=== PATIENT | female | born 1955 | race Caucasian/White ===

== ENCOUNTER → 2017-10-01 06:00 | Outpatient (REF) | payer MEDICAID, SELFPAY ==
[2017-10-01 08:49] LABS: Hemoglobin 11.9 g/dl (12.0-15.0); Mean Corp Hgb Conc 28.3 g/gl (32-36); Mean Corpuscular Hgb 28.3 pg (27.0-32.0); Mean Corpuscular Volume 99.8 fL (81-99); Mean Platelet Vol. 10.9 fl (6.2-12.0); Platelet Count 354 K/mm3 (150-450); RBC Distribution Width CV 14.3 % (11.6-14.6); RBC Distribution Width SD 51.9 fl (35.1-43.9); Red Blood Count 4.21 M/mm3 (4.2-5.4); Scan Indicated on CBC? Y/N NO; White Blood Count 8.4 K/mm3 (4.4-11.0)
[2017-10-01 08:54] LABS: Anion Gap 2 (5-15); BUN 26 mg/dL (7-18); BUN/Creat Ratio 56.6 RATIO (10-20); Calcium,Total 8.7 mg/dL (8.5-10.1); Chloride 99 mmol/L (98-107); Creatinine, Serum 0.46 mg/dL (0.55-1.02); EST Glomerular Filtration Rate 146 mL/min (>60); Est Glom Filt Rate - Afr Amer 176 mL/min (>60); Glucose 101 mg/dL (70-110); Potassium 4.9 mmol/L (3.5-5.1); Sodium Level 142 mmol/L (136-145)
== END ==
LOC: OLS.WCC 06:00
PROVIDERS: Visit Provider Family Medicine
DX: J44.9 Chronic obstructive pulmonary disease, unspecified (principal)
CPT/HCPCS: 36415; 80048; 85027

== ENCOUNTER → 2017-10-15 05:00 | Outpatient (REF) | payer MEDICAID, SELFPAY ==
[2017-10-15 09:06] LABS: Anion Gap 4 (5-15); BUN 20 mg/dL (7-18); BUN/Creat Ratio 53.6 RATIO (10-20); Calcium,Total 7.7 mg/dL (8.5-10.1); Chloride 101 mmol/L (98-107); Creatinine, Serum 0.37 mg/dL (0.55-1.02); EST Glomerular Filtration Rate 185 mL/min (>60); Est Glom Filt Rate - Afr Amer 224 mL/min (>60); Glucose 73 mg/dL (70-110); Potassium 3.3 mmol/L (3.5-5.1); Sodium Level 143 mmol/L (136-145)
[2017-10-15 09:15] LABS: Mean Corp Hgb Conc 30.3 g/gl (32-36); Mean Corpuscular Volume 95.7 fL (81-99); Mean Platelet Vol. 12.1 fl (6.2-12.0); Platelet Count 131 K/mm3 (150-450); RBC Distribution Width CV 14.2 % (11.6-14.6); RBC Distribution Width SD 47.1 fl (35.1-43.9); Red Blood Count 3.45 M/mm3 (4.2-5.4); White Blood Count 8.6 K/mm3 (4.4-11.0)
[2017-10-15 09:22] LABS: Scan Indicated on CBC? Y/N NO
== END ==
LOC: OLS.WCC 05:00
PROVIDERS: Visit Provider Family Medicine
DX: I10 Essential (primary) hypertension (principal); E43 Unspecified severe protein-calorie malnutrition
CPT/HCPCS: 36415; 80048; 85027

== ENCOUNTER → 2017-10-22 05:00 | Outpatient (REF) | payer MEDICAID, SELFPAY ==
[2017-10-22 08:11] LABS: Hematocrit 36.5 % (37-47); Hemoglobin 11.2 g/dl (12.0-15.0); Mean Corp Hgb Conc 30.7 g/gl (32-36); Mean Corpuscular Hgb 29.9 pg (27.0-32.0); Mean Corpuscular Volume 97.3 fL (81-99); Platelet Count 206 K/mm3 (150-450); RBC Distribution Width CV 16.1 % (11.6-14.6); RBC Distribution Width SD 54.8 fl (35.1-43.9); Red Blood Count 3.75 M/mm3 (4.2-5.4); Scan Indicated on CBC? Y/N NO; White Blood Count 9.8 K/mm3 (4.4-11.0)
[2017-10-22 08:37] LABS: Anion Gap 5 (5-15); BUN 18 mg/dL (7-18); BUN/Creat Ratio 49.3 RATIO (10-20); Calcium,Total 8.6 mg/dL (8.5-10.1); Chloride 99 mmol/L (98-107); Creatinine, Serum 0.36 mg/dL (0.55-1.02); EST Glomerular Filtration Rate 190 mL/min (>60); Est Glom Filt Rate - Afr Amer 230 mL/min (>60); Glucose 70 mg/dL (70-110); Potassium 4.5 mmol/L (3.5-5.1); Sodium Level 141 mmol/L (136-145)
== END ==
LOC: OLS.WCC 05:00
PROVIDERS: Visit Provider Family Medicine
DX: E43 Unspecified severe protein-calorie malnutrition (principal); I10 Essential (primary) hypertension
CPT/HCPCS: 36415; 80048; 85027

== ENCOUNTER → 2017-10-29 05:00 | Outpatient (REF) | payer MEDICAID, SELFPAY ==
[2017-10-29 08:32] LABS: Hematocrit 35.3 % (37-47); Hemoglobin 10.9 g/dl (12.0-15.0); Mean Corp Hgb Conc 30.9 g/gl (32-36); Mean Corpuscular Hgb 30.2 pg (27.0-32.0); Mean Corpuscular Volume 97.8 fL (81-99); Mean Platelet Vol. 11.5 fl (6.2-12.0); Platelet Count 171 K/mm3 (150-450); RBC Distribution Width CV 15.8 % (11.6-14.6); RBC Distribution Width SD 54.5 fl (35.1-43.9); Red Blood Count 3.61 M/mm3 (4.2-5.4); White Blood Count 7.2 K/mm3 (4.4-11.0)
[2017-10-29 08:36] LABS: Scan Indicated on CBC? Y/N NO
[2017-10-29 08:38] LABS: Anion Gap 6 (5-15); BUN 23 mg/dL (7-18); BUN/Creat Ratio 61.3 RATIO (10-20); Calcium,Total 8.3 mg/dL (8.5-10.1); Chloride 101 mmol/L (98-107); Creatinine, Serum 0.38 mg/dL (0.55-1.02); EST Glomerular Filtration Rate 184 mL/min (>60); Est Glom Filt Rate - Afr Amer 223 mL/min (>60); Glucose 63 mg/dL (70-110); Potassium 4.6 mmol/L (3.5-5.1); Sodium Level 140 mmol/L (136-145)
== END ==
LOC: OLS.WCC 05:00
PROVIDERS: Visit Provider Family Medicine
DX: I10 Essential (primary) hypertension (principal); E43 Unspecified severe protein-calorie malnutrition
CPT/HCPCS: 36415; 80048; 85027

== ENCOUNTER → 2017-11-05 07:07 | Outpatient (REF) | payer MEDICAID, SELFPAY ==
[2017-11-05 08:42] LABS: Anion Gap 4 (5-15); BUN 18 mg/dL (7-18); BUN/Creat Ratio 51.3 RATIO (10-20); Calcium,Total 8.2 mg/dL (8.5-10.1); Chloride 104 mmol/L (98-107); Creatinine, Serum 0.35 mg/dL (0.55-1.02); EST Glomerular Filtration Rate 199 mL/min (>60); Est Glom Filt Rate - Afr Amer 240 mL/min (>60); Glucose 85 mg/dL (70-110); Potassium 4.2 mmol/L (3.5-5.1); Sodium Level 142 mmol/L (136-145)
[2017-11-05 08:54] LABS: Hematocrit 35.9 % (37-47); Hemoglobin 11.2 g/dl (12.0-15.0); Mean Corp Hgb Conc 31.2 g/gl (32-36); Mean Corpuscular Hgb 30.1 pg (27.0-32.0); Mean Corpuscular Volume 96.5 fL (81-99); Mean Platelet Vol. 11.1 fl (6.2-12.0); Platelet Count 142 K/mm3 (150-450); RBC Distribution Width CV 15.2 % (11.6-14.6); RBC Distribution Width SD 51.7 fl (35.1-43.9); Red Blood Count 3.72 M/mm3 (4.2-5.4); White Blood Count 4.5 K/mm3 (4.4-11.0)
[2017-11-05 08:58] LABS: Scan Indicated on CBC? Y/N NO
== END ==
LOC: OLS.WCC 07:07
PROVIDERS: Visit Provider Family Medicine
DX: I10 Essential (primary) hypertension (principal); E43 Unspecified severe protein-calorie malnutrition
CPT/HCPCS: 36415; 80048; 85027

== ENCOUNTER → 2017-11-12 05:00 | Outpatient (REF) | payer MEDICAID, SELFPAY ==
[2017-11-12 09:32] LABS: Hematocrit 37.7 % (37-47); Hemoglobin 11.6 g/dl (12.0-15.0); Mean Corp Hgb Conc 30.8 g/gl (32-36); Mean Corpuscular Hgb 29.3 pg (27.0-32.0); Mean Corpuscular Volume 95.2 fL (81-99); Mean Platelet Vol. 11.6 fl (6.2-12.0); Platelet Count 200 K/mm3 (150-450); RBC Distribution Width CV 14.9 % (11.6-14.6); RBC Distribution Width SD 51.9 fl (35.1-43.9); Red Blood Count 3.96 M/mm3 (4.2-5.4); White Blood Count 5.4 K/mm3 (4.4-11.0)
[2017-11-12 09:33] LABS: Scan Indicated on CBC? Y/N NO
[2017-11-12 09:40] LABS: Anion Gap 5 (5-15); BUN 19 mg/dL (7-18); BUN/Creat Ratio 50.8 RATIO (10-20); Calcium,Total 8.8 mg/dL (8.5-10.1); Chloride 103 mmol/L (98-107); Creatinine, Serum 0.37 mg/dL (0.55-1.02); EST Glomerular Filtration Rate 185 mL/min (>60); Est Glom Filt Rate - Afr Amer 223 mL/min (>60); Glucose 82 mg/dL (70-110); Potassium 4.4 mmol/L (3.5-5.1); Sodium Level 140 mmol/L (136-145)
== END ==
LOC: OLS.WCC 05:00
PROVIDERS: Visit Provider Family Medicine
DX: I10 Essential (primary) hypertension (principal); E43 Unspecified severe protein-calorie malnutrition
CPT/HCPCS: 36415; 80048; 85027

== ENCOUNTER → 2017-11-19 05:00 | Outpatient (REF) | payer MEDICAID, SELFPAY ==
[2017-11-19 11:35] LABS: Hematocrit 38.4 % (37-47); Hemoglobin 12.3 g/dl (12.0-15.0); Mean Corpuscular Hgb 30.2 pg (27.0-32.0); Mean Corpuscular Volume 94.3 fL (81-99); Mean Platelet Vol. 11.5 fl (6.2-12.0); Platelet Count 230 K/mm3 (150-450); RBC Distribution Width CV 14.3 % (11.6-14.6); RBC Distribution Width SD 47.6 fl (35.1-43.9); Red Blood Count 4.07 M/mm3 (4.2-5.4); White Blood Count 6.7 K/mm3 (4.4-11.0)
[2017-11-19 11:41] LABS: Anion Gap 10 (5-15); BUN 18 mg/dL (7-18); BUN/Creat Ratio 35.4 RATIO (10-20); Calcium,Total 8.7 mg/dL (8.5-10.1); Chloride 102 mmol/L (98-107); Creatinine, Serum 0.51 mg/dL (0.55-1.02); EST Glomerular Filtration Rate 130 mL/min (>60); Est Glom Filt Rate - Afr Amer 157 mL/min (>60); Glucose 106 mg/dL (70-110); Potassium 4.1 mmol/L (3.5-5.1); Scan Indicated on CBC? Y/N NO; Sodium Level 142 mmol/L (136-145)
== END ==
LOC: OLS.WCC 05:00
PROVIDERS: Visit Provider Family Medicine
DX: I10 Essential (primary) hypertension (principal); E43 Unspecified severe protein-calorie malnutrition
CPT/HCPCS: 36415; 80048; 85027

== ENCOUNTER → 2017-11-26 05:00 | Outpatient (REF) | payer MEDICAID, SELFPAY ==
[2017-11-26 10:13] LABS: Hematocrit 38.1 % (37-47); Hemoglobin 12.3 g/dl (12.0-15.0); Mean Corp Hgb Conc 32.3 g/gl (32-36); Mean Corpuscular Hgb 30.4 pg (27.0-32.0); Mean Corpuscular Volume 94.3 fL (81-99); Mean Platelet Vol. 11.9 fl (6.2-12.0); Platelet Count 192 K/mm3 (150-450); RBC Distribution Width SD 46.2 fl (35.1-43.9); Red Blood Count 4.04 M/mm3 (4.2-5.4); White Blood Count 6.1 K/mm3 (4.4-11.0)
[2017-11-26 10:15] LABS: Scan Indicated on CBC? Y/N NO
[2017-11-26 10:24] LABS: Anion Gap 6 (5-15); BUN 19 mg/dL (7-18); BUN/Creat Ratio 52.3 RATIO (10-20); Calcium,Total 8.6 mg/dL (8.5-10.1); Chloride 104 mmol/L (98-107); Creatinine, Serum 0.36 mg/dL (0.55-1.02); EST Glomerular Filtration Rate 191 mL/min (>60); Est Glom Filt Rate - Afr Amer 231 mL/min (>60); Glucose 77 mg/dL (70-110); Potassium 4.5 mmol/L (3.5-5.1); Sodium Level 141 mmol/L (136-145)
== END ==
LOC: OLS.WCC 05:00
PROVIDERS: Visit Provider Family Medicine
DX: I10 Essential (primary) hypertension (principal); E43 Unspecified severe protein-calorie malnutrition
CPT/HCPCS: 36415; 80048; 85027

== ENCOUNTER → 2017-12-03 05:00 | Outpatient (REF) | payer MEDICAID, SELFPAY ==
[2017-12-03 09:00] LABS: Hematocrit 37.9 % (37-47); Hemoglobin 12.2 g/dl (12.0-15.0); Mean Corp Hgb Conc 32.2 g/gl (32-36); Mean Corpuscular Hgb 30.2 pg (27.0-32.0); Mean Corpuscular Volume 93.8 fL (81-99); Mean Platelet Vol. 11.5 fl (6.2-12.0); Platelet Count 158 K/mm3 (150-450); Red Blood Count 4.04 M/mm3 (4.2-5.4); White Blood Count 5.8 K/mm3 (4.4-11.0)
[2017-12-03 09:05] LABS: Scan Indicated on CBC? Y/N NO
[2017-12-03 09:11] LABS: Anion Gap 7 (5-15); BUN 18 mg/dL (7-18); BUN/Creat Ratio 40.5 RATIO (10-20); Calcium,Total 8.6 mg/dL (8.5-10.1); Chloride 104 mmol/L (98-107); Creatinine, Serum 0.44 mg/dL (0.55-1.02); EST Glomerular Filtration Rate 151 mL/min (>60); Est Glom Filt Rate - Afr Amer 183 mL/min (>60); Glucose 76 mg/dL (70-110); Potassium 4.3 mmol/L (3.5-5.1); Sodium Level 141 mmol/L (136-145)
== END ==
LOC: OLS.WCC 05:00
PROVIDERS: Visit Provider Family Medicine
DX: I10 Essential (primary) hypertension (principal); E43 Unspecified severe protein-calorie malnutrition
CPT/HCPCS: 36415; 80048; 85027

== ENCOUNTER → 2018-03-26 12:13 | Outpatient (CLI) | payer MEDICAID, SELFPAY ==
[2018-03-26 14:16] LABS: Absolute Lymphocyte Count 1.75 X10^3/ul (0.83-4.51); Basophil# 0.06 X10^3/uL; Basophil% 0.7 % (0-1); Eosinophil# 1.04 X10^3/uL; Hematocrit 42.5 % (37-47); Hemoglobin 14.1 g/dl (12.0-15.0); Lymphocyte # 1.75 X10^3/ul (4.0); Lymphocyte % 20.2 % (19-41); Mean Corp Hgb Conc 33.2 g/gl (32-36); Mean Corpuscular Hgb 29.3 pg (27.0-32.0); Mean Corpuscular Volume 88.2 fL (81-99); Mean Platelet Vol. 11.9 fl (6.2-12.0); Monocyte# 0.79 X10^3/uL; Monocyte% 9.1 % (0-10); Neutrophil # 5.02 X10^3/uL (2.7-7.7); Neutrophil % 57.8 % (47-70); Platelet Count 252 K/mm3 (150-450); RBC Distribution Width CV 13.3 % (11.6-14.6); RBC Distribution Width SD 42.7 fl (35.1-43.9); Red Blood Count 4.82 M/mm3 (4.2-5.4); White Blood Count 8.7 K/mm3 (4.4-11.0)
[2018-03-26 14:17] LABS: POSITIVE COUNT NO; POSITIVE DIFFERENTIAL NO; POSITIVE MORPHOLOGY NO
[2018-03-26 15:09] LABS: Vitamin B12 756 pg/mL (211-911); Vitamin D,25 Hydroxy 16.3 ng/mL (29.95-100.01)
[2018-03-26 15:37] LABS: ALB/GLOB Ratio 0.9 RATIO (0.9-2.4); AST(SGOT) 9 U/L (15-37); Alanine Aminotransfer ALT/SGPT 11 U/L (13-56); Albumin, Serum 3.7 g/dL (3.2-5.0); Alkaline Phosphatase 61 U/L (45-117); Anion Gap 7 (5-15); BUN 16 mg/dL (7-18); BUN/Creat Ratio 25.4 RATIO (10-20); Calcium,Total 9.3 mg/dL (8.5-10.1); Chloride 107 mmol/L (98-107); Creatinine, Serum 0.63 mg/dL (0.55-1.02); EST Glomerular Filtration Rate 101 mL/min (>60); Est Glom Filt Rate - Afr Amer 122 mL/min (>60); Globulin 4.1 g/dL (2.2-4.2); Glucose 92 mg/dL (74-106); Magnesium 2.2 mg/dL (1.6-2.6); Potassium 3.8 mmol/L (3.5-5.1); Prealbumin 18.8 mg/dL (20.0-40.0); Protein, Total 7.8 g/dL (6.4-8.2); Sodium Level 143 mmol/L (136-145); T4 Free Direct 1.32 ng/dL (0.76-1.46); Thyroid Stim Hormone (TSH) 1.31 uIU/mL (0.358-3.74)
[2018-03-30 09:53] LABS: Zinc, Plasma or Serum 92 ug/dL (56-134)
== END ==
PROVIDERS: Family Provider Family Medicine; PCP Family Medicine; Visit Provider Family Medicine
DX: J44.9 Chronic obstructive pulmonary disease, unspecified (principal); R63.6 Underweight
CPT/HCPCS: 36415; 80053; 82306; 82607; 82746; 83735; 84134; 84425; 84439; 84443; 84630; 85025

== ENCOUNTER → 2018-04-16 12:24 | Outpatient (CLI) | payer MEDICAID, SELFPAY ==
[2018-04-16 12:03] VITALS: PULSE 104; PULSE 85; PULSE 91; PULSE 92; PULSE 93; PULSE 94; PULSE 95; O2SAT 87; O2SAT 91; O2SAT 92; O2SAT 93; O2SAT 94; O2SAT 95
--- NOTE | 2018-04-16 12:24 | DT_ITS ---
This patient was seen during an EMR downtime April 14, 2018 - April 21, 2018. This patient may have a combination of paper and electronic documentation or all paper documentation. All documentation is viewable within the e-chart portion of [employer] for each patient visit.
--- NOTE | 2018-04-21 11:36 | PCM.PSN.6M ---
PSN 6 Minute Walk Test - Interpretation Interpretation: The patient ambulated 944 feet over the course of 6 minutes beginning on room air without assistive devices or breaks. Pretesting oxygen saturation was noted to be 92% on room air. With ambulation, the yojana oxygen saturation was 87%. 2 L/min of supplemental oxygen was applied, and the patient was able to complete the remainder of the test while maintaining oxygen saturations at or above 88%. This testing did indicate the presence of significant exertional oxygen desaturation. - Recommendations Recommendations: 2 L/min of supplemental oxygen should be utilized with exertion.
--- NOTE | 2018-04-21 12:05 | CPS ---
Testing done by Lisa Nam. Patient wears 2 lpm at home.
== END ==
PROVIDERS: Family Provider Family Medicine; PCP Family Medicine; Visit Provider Internal Medicine Critical Care Medicine
DX: R06.02 Shortness of breath (principal); B44.9 Aspergillosis, unspecified
CPT/HCPCS: 94618

== ENCOUNTER 2018-04-21 14:44 | Outpatient (RCR) | payer MEDICAID, SELFPAY ==
--- NOTE | 2018-04-21 14:44 | DT_ITS ---
This patient was seen during an EMR downtime April 14, 2018 - April 21, 2018. This patient may have a combination of paper and electronic documentation or all paper documentation. All documentation is viewable within the e-chart portion of [employer] for each patient visit.
== END 2018-05-10 23:59 ==
LOC: NS 14:44
PROVIDERS: Family Provider Family Medicine; PCP Family Medicine; Visit Provider Family Medicine
DX: E46 Unspecified protein-calorie malnutrition (principal); Z71.3 Dietary counseling and surveillance
CPT/HCPCS: 97802

== ENCOUNTER → 2018-04-28 12:48 | Outpatient (CLI) | payer MEDICAID, SELFPAY ==
--- NOTE | 2018-04-28 12:48 | CT_ITS ---
STUDY: CT CHEST WITH CONTRAST REASON FOR EXAM: Female, 62 years old. Wheezing. History of aspergillosis. RADIATION DOSAGE (If Supplied By Facility): CTDIvol = ( 8.66 ) mGy, DLP = ( 151.65 ) mGycm TECHNIQUE: Transaxial imaging was performed following intravenous administration of 80ML ml of Isovue 300 contrast material. Individualized dose optimization techniques were used for this CT. COMPARISON: CT chest October 08, 2017. Chest x-ray October 08, 2017. FINDINGS: Lungs are hyperinflated. No focal infiltrates or effusions. Focal bronchiectasis involving the lingular segment which has progressed since the prior exam axial image 70 series 4 and coronal image 120. Biapical pleural thickening. Normal heart and pericardium. Normal mediastinum. Normal hilar regions. Normal enhanced pulmonary arteries. There is mild atherosclerotic calcification of the thoracic aorta. Normal osseous structures. There is no demonstrated abnormality of the visualized upper abdomen. CT/Chest WITH Contrast IMPRESSION: No acute findings in the chest. No pulmonary embolus or thoracic aortic dissection. Lingular segment bronchiectasis worse since the prior study. COPD. Electronically Signed: Florencio Fu MD at 7:30 EDT , Service support ,
== END ==
PROVIDERS: Family Provider Family Medicine; PCP Family Medicine; Visit Provider Internal Medicine Critical Care Medicine
DX: E43 Unspecified severe protein-calorie malnutrition (principal); B44.9 Aspergillosis, unspecified
CPT/HCPCS: 71260; Q9967

== ENCOUNTER → 2018-04-30 13:01 | Outpatient (CLI) | payer MEDICAID, SELFPAY ==
--- NOTE | 2018-05-01 08:28 | PFT ---
INTRODUCTION: The patient is a 62-year-old female currently under the care of Dr. Del Castillo that presents for pulmonary function testing secondary to a diagnosis of shortness of breath. Respiratory therapy reports fair patient effort. Bronchodilators were used during testing. INTERPRETATION: Forced expiration spirometry demonstrates no evidence of a large airways obstructive ventilatory defect. There was no significant response to aerosolized bronchodilators. Spirograms are of poor quality and do not meet exhalation criteria, likely underestimating FVC. Body plethysmography revealed an elevated RV to 183% of predicted. Diffusing capacity by single breath CO is reduced at 44% of predicted. IMPRESSION: Although the patient is not technically obstructed based upon ATS and GOLD criteria, I suspect that inadequate patient effort has led to an underestimation of her FVC and subsequent preservation of the FEV1/FVC ratio. The elevated RV would be indicative of air trapping in the setting of obstruction. There was also evidence of a severe reduction in diffusing capacity. Clinical correlation is recommended.
== END ==
PROVIDERS: Family Provider Family Medicine; PCP Family Medicine; Visit Provider Internal Medicine Critical Care Medicine
DX: R06.02 Shortness of breath (principal); B44.9 Aspergillosis, unspecified
CPT/HCPCS: 94060; 94726; 94729

== ENCOUNTER 2018-06-02 14:00 | Outpatient (RCR) | payer MEDICAID, SELFPAY | END 2018-06-10 23:59 | LOC: NS 14:00 | PROVIDERS: Family Provider Family Medicine; PCP Family Medicine; Visit Provider Family Medicine | DX: E46 Unspecified protein-calorie malnutrition (principal); Z71.3 Dietary counseling and surveillance | CPT/HCPCS: 97803 ==

== ENCOUNTER 2018-06-24 08:23 | Outpatient (RCR) | payer MEDICAID, SELFPAY | END 2018-07-11 23:59 | LOC: NS 08:23 | PROVIDERS: Family Provider Family Medicine; PCP Family Medicine; Visit Provider Family Medicine | DX: E46 Unspecified protein-calorie malnutrition (principal); Z71.3 Dietary counseling and surveillance ==

== ENCOUNTER 2018-08-01 11:00 | Outpatient (RCR) | payer MEDICAID, SELFPAY | END 2018-08-10 23:59 | LOC: NS 11:00 | PROVIDERS: Family Provider Family Medicine; PCP Family Medicine; Visit Provider Family Medicine | DX: E46 Unspecified protein-calorie malnutrition (principal); Z71.3 Dietary counseling and surveillance | CPT/HCPCS: 97803 ==

== ENCOUNTER → 2018-08-29 14:10 | Outpatient (CLI) | payer MEDICARE, MEDICAID, SELFPAY ==
--- NOTE | 2018-08-29 14:13 | CT_ITS ---
STUDY: CT ABDOMEN AND PELVIS WITH CONTRAST REASON FOR EXAM: Female, 62 years old. Weight loss RADIATION DOSAGE (If Supplied By Facility): CTDIvol = ( 10.68 ) mGy, DLP = ( 222.58 ) mGycm TECHNIQUE: Transaxial images were obtained from the dome of the diaphragm to the symphysis pubis without oral contrast. 75 ml of Isovue 300 contrast was administered. Sagittal and coronal images were reconstructed. # of Images: 315 Individualized dose optimization techniques were used for this CT. COMPARISON: None. FINDINGS: The visualized lung bases are unremarkable. The visualized portions of the heart are within normal limits. Normal liver. Normal gallbladder and extrahepatic biliary system. Normal spleen. Normal pancreas. Normal bilateral adrenal glands. There is scarring in the right kidney most likely due to old pyelonephritis. Normal left kidney. Normal visualized stomach. Normal small intestine. Normal colon. There is non-visualization of the appendix. Normal abdominal aorta. Normal inferior vena cava. Normal retroperitoneum. Normal urinary bladder. There is right ovarian cyst measures 3.1 cm in diameter. The uterus is atrophic. Left ovary is not visualized. Normal abdominal wall. Normal osseous structures. CT/Abdomen/Pelvis WITH Contrast IMPRESSION: There is scarring in the right kidney most likely due to old pyelonephritis. There is right ovarian cyst measures 3.1 cm in diameter. Electronically Signed: Gareth Krishna MD at 7:43 EDT Tel , Service support ,
[2018-08-29 14:36] LABS: CREATININE FINGERSTICK < 0.6 mg/dL (0.55-1.02); EGFR FINGERSTICK > 60.0000 mL/min (>60)
== END ==
PROVIDERS: Family Provider Family Medicine; PCP Family Medicine; Referring Provider Family Medicine; Visit Provider Family Medicine
DX: R64 Cachexia (principal)
CPT/HCPCS: 74177; Q9967

== ENCOUNTER 2018-09-09 10:00 | Outpatient (RCR) | payer MEDICARE, MEDICAID, SELFPAY | END 2018-09-10 23:59 | LOC: NS 10:00 | PROVIDERS: Family Provider Family Medicine; PCP Family Medicine; Visit Provider Family Medicine | DX: E46 Unspecified protein-calorie malnutrition (principal); Z71.3 Dietary counseling and surveillance | CPT/HCPCS: 97803 ==

== ENCOUNTER 2018-11-20 13:49 | Outpatient (RCR) | payer MEDICARE, MEDICAID, SELFPAY | END 2018-12-11 23:59 | LOC: NS 13:49 | PROVIDERS: Family Provider Family Medicine; PCP Family Medicine; Visit Provider Family Medicine | DX: E46 Unspecified protein-calorie malnutrition (principal); Z71.3 Dietary counseling and surveillance | CPT/HCPCS: 97803 ==

== ENCOUNTER → 2018-11-25 10:46 | Outpatient (CLI) | payer MEDICARE, MEDICAID, SELFPAY ==
[2018-11-25 12:55] LABS: Magnesium 2.3 mg/dL (1.6-2.6); Phosphorus 4.6 mg/dL (2.5-4.9)
[2018-11-27 09:41] LABS: Zinc, Plasma or Serum 79 ug/dL (56-134)
== END ==
PROVIDERS: Family Provider Family Medicine; PCP Family Medicine; Visit Provider Family Medicine
DX: E43 Unspecified severe protein-calorie malnutrition (principal)
CPT/HCPCS: 36415; 83735; 84100; 84630

== ENCOUNTER → 2018-11-27 11:27 | Outpatient (CLI) | payer MEDICARE, MEDICAID, SELFPAY ==
[2018-11-27 10:48] VITALS: BMI 11.2
--- NOTE | 2018-11-27 11:33 | CPS ---
Dispensed PEP device to patient's sister. Instructed sister on use and cleaning of device.
== END ==
PROVIDERS: Family Provider Family Medicine; PCP Family Medicine; Referring Provider Nurse Practitioner Acute Care; Visit Provider Nurse Practitioner Acute Care
DX: J47.9 Bronchiectasis, uncomplicated (principal)
CPT/HCPCS: 94667

== ENCOUNTER 2018-12-26 10:55 | Outpatient (RCR) | payer MEDICARE, SELFPAY ==
[2018-11-27 10:48] VITALS: BMI 11.2
[2018-12-23 11:48] VITALS: BMI 11.2
== END 2019-01-08 23:59 ==
LOC: NS 10:55
PROVIDERS: Family Provider Family Medicine; PCP Internal Medicine; Visit Provider Family Medicine
DX: E46 Unspecified protein-calorie malnutrition (principal); Z71.3 Dietary counseling and surveillance
CPT/HCPCS: 97803

== ENCOUNTER 2019-01-16 11:00 | Outpatient (RCR) | payer MEDICARE, SELFPAY ==
[2018-12-23 11:48] VITALS: BMI 11.2
[2019-01-12 10:52] VITALS: BMI 11.2
== END 2019-02-08 23:59 ==
LOC: NS 11:00
PROVIDERS: Family Provider Family Medicine; PCP Internal Medicine; Visit Provider Family Medicine
DX: E46 Unspecified protein-calorie malnutrition (principal); Z71.3 Dietary counseling and surveillance
CPT/HCPCS: 97803

== ENCOUNTER → 2019-02-09 11:55 | Outpatient (CLI) | payer MEDICARE, SELFPAY ==
[2019-02-09 11:19] VITALS: BMI 11.2
[2019-02-09 12:40] LABS: Absolute Lymphocyte Count 1.75 X10^3/ul (0.83-4.51); Absolute Neutrophil Count 4.7 X10^3/uL (2.0-7.7); Basophil# 0.05 X10^3/uL; Basophil% 0.7 % (0-1); Eosinophils% 6.7 % (0-5); Hemoglobin 14.5 g/dl (12.0-15.0); Lymphocyte # 1.75 X10^3/ul (4.0); Lymphocyte % 23.6 % (19-41); Mean Corp Hgb Conc 32.2 g/gl (32-36); Mean Corpuscular Volume 93.2 fL (81-99); Mean Platelet Vol. 11.1 fl (6.2-12.0); Monocyte# 0.42 X10^3/uL; Monocyte% 5.7 % (0-10); Neutrophil % 63.2 % (47-70); Platelet Count 224 K/mm3 (150-450); RBC Distribution Width CV 13.1 % (11.6-14.6); RBC Distribution Width SD 44.7 fl (35.1-43.9); Red Blood Count 4.83 M/mm3 (4.2-5.4); White Blood Count 7.4 K/mm3 (4.4-11.0)
[2019-02-09 12:42] LABS: POSITIVE COUNT NO; POSITIVE DIFFERENTIAL NO; POSITIVE MORPHOLOGY NO
[2019-02-09 13:09] LABS: ALB/GLOB Ratio 0.9 RATIO (0.9-2.4); AST(SGOT) 26 U/L (15-37); Alanine Aminotransfer ALT/SGPT 36 U/L (13-56); Albumin, Serum 3.8 g/dL (3.2-5.0); Alkaline Phosphatase 72 U/L (45-117); Anion Gap 5 (5-15); BUN 22 mg/dL (7-18); BUN/Creat Ratio 33.2 RATIO (10-20); Calcium,Total 9.3 mg/dL (8.5-10.1); Chloride 105 mmol/L (98-107); Creatinine, Serum 0.66 mg/dL (0.55-1.02); EST Glomerular Filtration Rate 95 mL/min (>60); Est Glom Filt Rate - Afr Amer 115 mL/min (>60); Globulin 4.3 g/dL (2.2-4.2); Glucose 115 mg/dL (74-106); Magnesium 2.5 mg/dL (1.6-2.6); Phosphorus 3.8 mg/dL (2.5-4.9); Potassium 4.8 mmol/L (3.5-5.1); Protein, Total 8.1 g/dL (6.4-8.2); Sodium Level 142 mmol/L (136-145)
[2019-02-09 13:17] LABS: Vitamin D,25 Hydroxy 28.9 ng/mL (29.95-100.01)
== END ==
PROVIDERS: Family Provider Family Medicine; PCP Internal Medicine; Visit Provider Internal Medicine
DX: E46 Unspecified protein-calorie malnutrition (principal); E55.9 Vitamin D deficiency, unspecified
CPT/HCPCS: 80053; 82306; 83735; 84100; 84630; 85025

== ENCOUNTER 2019-02-16 13:10 | Outpatient (RCR) | payer MEDICARE, SELFPAY ==
[2019-01-12 10:52] VITALS: BMI 11.2
[2019-02-09 11:19] VITALS: BMI 11.2
== END 2019-03-10 23:59 ==
LOC: NS 13:10
PROVIDERS: Family Provider Family Medicine; PCP Internal Medicine; Visit Provider Family Medicine
DX: E46 Unspecified protein-calorie malnutrition (principal); Z71.3 Dietary counseling and surveillance
CPT/HCPCS: 97803

== ENCOUNTER 2019-03-17 12:03 | Outpatient (RCR) | payer MEDICARE, SELFPAY ==
[2019-03-10 10:50] VITALS: BMI 11.2
== END 2019-04-10 23:59 ==
LOC: NS 12:03
PROVIDERS: Family Provider Family Medicine; PCP Internal Medicine; Visit Provider Family Medicine
DX: E46 Unspecified protein-calorie malnutrition (principal); Z71.3 Dietary counseling and surveillance
CPT/HCPCS: 97803

== ENCOUNTER → 2019-03-25 10:14 | Outpatient (CLI) | payer MEDICARE, SELFPAY ==
[2019-02-09 11:19] VITALS: BMI 11.2
[2019-03-10 10:50] VITALS: BMI 11.2
--- NOTE | 2019-03-25 10:31 | BI_ITS ---
MAMMOGRAPHY - BILATERAL SCREENING REASON FOR EXAM: Female, 63 years old. Routine annual screening examination. PERTINENT HISTORY: Non-contributory. TECHNIQUE: Digital bilateral breast go (3D mammographic acquisition) in the CC and MLO projections. 2-D mediolateral oblique (MLO) and craniocaudad (CC) views of both breasts were obtained. CAD: Full Field Digital Mammography with Computer Added Detection was performed. COMPARISON: None. Baseline examination. FINDINGS: Breast Composition: The breasts are extremely dense, which lowers the sensitivity of mammography. There are no dominant masses or suspicious calcifications. No other significant abnormalities are identified. BI/SCREEN MAMM (CAD) W/GO BILAT IMPRESSION: Negative screening mammogram. Yearly followup mammogram recommended. (A) ASSESSMENT CATEGORY: BIRADS Category 1: Negative. A letter regarding these results will be sent to the patient by the facility within 30 days. Approximately 10% of breast cancers are not detected by mammography. A normal mammogram should not delay biopsy of a clinically suspicious abnormality. [id number] Electronically Signed: Isaac Stuart, at 13:31 EDT , Service support ,
== END ==
PROVIDERS: Family Provider Internal Medicine; PCP Internal Medicine; Referring Provider Internal Medicine; Visit Provider Internal Medicine
DX: Z12.31 Encounter for screening mammogram for malignant neoplasm of breast (principal)
CPT/HCPCS: 77063; 77067

== ENCOUNTER → 2019-04-02 10:40 | Outpatient (CLI) | payer MEDICARE, SELFPAY ==
[2019-03-10 10:50] VITALS: BMI 11.2
--- NOTE | 2019-04-02 10:50 | BD_ITS ---
STUDY: DUAL ENERGY X-RAY ABSORPTIOMETRY / DXA REASON FOR EXAM: Female, 63 years old. The patient is postmenopausal. Loss of height. TECHNIQUE: Bone Mineral Density (BMD) measurements of lumbar spine and bilateral hips were obtained. COMPARISON: None. FINDINGS: Lumbar Spine (L1-L4): g/cm2 (0.808) / T-score (-3.1) / Z-score (-1.5) Findings are suggestive of osteoporosis with a high fracture risk. Left Femur Total: g/cm2 (0.426) / T-score (-4.6) / Z-score (-3.4) Left Femoral Neck: g/cm2 (0.478) / T-score (-4.0) / Z-score (-2.5) Right Femur Total: g/cm2 (0.394) / T-score (-4.9) / Z-score (-3.7) Right Femoral Neck: g/cm2 (0.48 to) / T-score (-4.0) / Z-score (-2.5) BD/Dexa Bone Density Study IMPRESSION: The patient is considered osteoporotic as outlined below according to World Geo Organization (WHO) criteria with a high fracture risk. Reference Information: The T-score is the number of standard deviations above or below the standard which is normal for young adults at their peak bone mineral density. The World Health Organization (WHO) interprets the T-scores as follows: Above -1 Normal bone density Between -1 and -2.5 Osteopenia Equal to / or below -2.5 Osteoporosis As a practical clinical guideline, osteopenia may be graded as follows: Mild -1 through -1.5 Moderate -1.6 through -2.0 Severe -2.1 through -2.4 The Z-score is the number of standard deviations above or below age-matched controls. A Z-score of less than -1.5 would be considered abnormal. References: 1. NIH Osteoporosis and Related Bone Diseases http://www.osteo.org 2. International Society for Clinical Densitometry http://www.iscd.org 3. National Osteoporosis Foundation http://www.nof.org Electronically Signed: Isaac Stuart, at 12:44 EDT , Service support ,
== END ==
PROVIDERS: Family Provider Internal Medicine; PCP Internal Medicine; Visit Provider Internal Medicine
DX: Z78.0 Asymptomatic menopausal state (principal); M81.0 Age-related osteoporosis without current pathological fracture
CPT/HCPCS: 77080

== ENCOUNTER → 2019-04-30 09:55 | Outpatient (CLI) | payer MEDICARE, SELFPAY ==
[2018-11-27 10:48] VITALS: BMI 11.2
[2019-04-09 10:00] VITALS: BMI 11.2
--- NOTE | 2019-05-01 10:49 | PFT ---
INTRODUCTION: The patient is a 63-year-old female that presents for pulmonary function studies secondary to a diagnosis of shortness of breath. Respiratory therapy reports that the patient was unable to exhale for the full 6 seconds during pre-spirometry testing. Bronchodilators were used during testing. INTERPRETATION: Forced expiration spirometry demonstrates the presence of a very severe large airways obstructive ventilatory defect. There was no significant response to aerosolized bronchodilators. Spirograms are of poor quality and do not plateau. Body plethysmography was performed and reveals an elevated RV to 174% of predicted, indicative of underlying air trapping. Diffusing capacity by single breath CO is preserved at 71% of predicted. IMPRESSION: Irreversible very severe large airways obstructive ventilatory defect with associated air trapping and relatively preserved diffusing capacity.
== END ==
PROVIDERS: Family Provider Internal Medicine; PCP Internal Medicine; Referring Provider Nurse Practitioner Acute Care; Visit Provider Nurse Practitioner Acute Care
DX: R06.02 Shortness of breath (principal)
CPT/HCPCS: 94060; 94726; 94729

== ENCOUNTER → 2020-04-27 14:39 | Outpatient (CLI) | payer MEDICARE, MEDICAID, SELFPAY ==
[2020-04-27 13:58] VITALS: BMI 11.9
[2020-04-27 15:49] LABS: Absolute Lymphocyte Count 1.72 X10^3/uL (0.83-4.51); Absolute Neutrophil Count 6.7 X10^3/uL (2.0-7.7); Basophil# 0.08 X10^3/uL; Basophil% 0.8 % (0-1); Eosinophil# 0.37 X10^3/uL; Eosinophils% 3.9 % (0-5); Hematocrit 43.6 % (37-47); Hemoglobin 13.9 g/dL (12.0-15.0); Lymphocyte # 1.72 X10^3/ul (4.0); Lymphocyte % 18.1 % (19-41); Mean Corp Hgb Conc 31.9 g/dL (32-36); Mean Platelet Vol. 10.9 fl (6.2-12.0); Monocyte# 0.62 X10^3/uL; Monocyte% 6.5 % (0-10); NRBC Flagged by Analyzer 0 % (0-5); Neutrophil # 6.66 X10^3/uL (2.7-7.7); Neutrophil % 70.2 % (47-70); Platelet Count 266 K/mm3 (150-450); RBC Distribution Width CV 12.6 % (11.6-14.6); RBC Distribution Width SD 43.5 fl (35.1-43.9); Red Blood Count 4.64 M/mm3 (4.2-5.4); White Blood Count 9.5 K/mm3 (4.4-11.0)
[2020-04-27 16:24] LABS: ALB/GLOB Ratio 0.9 RATIO (0.9-2.4); AST(SGOT) 16 U/L (15-37); Alanine Aminotransfer ALT/SGPT 25 U/L (13-56); Albumin, Serum 3.7 g/dL (3.2-5.0); Alkaline Phosphatase 67 U/L (45-117); Anion Gap 5 (5-15); BUN 25 mg/dL (7-18); BUN/Creat Ratio 32.5 RATIO (10-20); Chloride 106 mmol/L (98-107); Creatinine, Serum 0.77 mg/dL (0.55-1.02); EST Glomerular Filtration Rate 80 mL/min (>60); Est Glom Filt Rate - Afr Amer 96 mL/min (>60); Globulin 4.3 g/dL (2.2-4.2); Glucose 108 mg/dL (74-106); Magnesium 2.4 mg/dL (1.6-2.6); Phosphorus 4.1 mg/dL (2.5-4.9); Potassium 4.4 mmol/L (3.5-5.1); Sodium Level 142 mmol/L (136-145)
[2020-04-27 16:59] LABS: Vitamin D,25 Hydroxy 20.8 ng/mL
[2020-05-02 05:35] LABS: Zinc, Plasma or Serum 392 ug/dL (56-134)
== END ==
PROVIDERS: PCP Internal Medicine; Referring Provider Internal Medicine; Visit Provider Internal Medicine
DX: E46 Unspecified protein-calorie malnutrition (principal); E55.9 Vitamin D deficiency, unspecified
CPT/HCPCS: 36415; 80053; 82306; 83735; 84100; 84630; 85025

== ENCOUNTER 2021-01-16 15:06 | Inpatient (IN) | payer MEDICARE, MEDICAID, SELFPAY ==
[2020-12-09 13:59] VITALS: BMI 11.7
[2021-01-16] VITALS (10 sets, daily range): BP systolic 129–197; BP diastolic 50–116; PULSE 85–100; RESP 16–22; TEMP 35.8–37.4; O2SAT 88–98; BMI 12.7; BMI 11.0
--- NOTE | 2021-01-16 15:11 | ED.DCSUM_ITS ---
History of Present Illness Chief Complaint: Abd Pain Informant: Patient, Sales Representative [employer] Narrative: 65-year-old female presents via ambulance with a complaint of right lower quadrant abdominal pain dysuria and urinary frequency. Patient states about a week ago she was seen in urgent care and was prescribed Macrobid. She states that this is not agreeing with her stomach and she felt okay yesterday but today developed this pain in the right lower quadrant. She describes it as a constant dull ache. She notes continued dysuria and frequency. She denies any fevers. She notes that she had some dry heaves prior to EMSs arrival. No hematuria. She denies any prior abdominal surgeries. She has been able to eat some oatmeal today. Normal bowel movements. - Past Medical History (1) Asthma Status: Chronic (2) Bronchiectasis Status: Chronic (3) COPD (chronic obstructive pulmonary disease) Status: Chronic (4) Hypertension Status: Chronic (5) Malnutrition Status: Chronic Comment: unintended weight loss of about 35 lbs (6) Aspergillosis Status: Resolved Comment: History of Left aspergilloma Past Medical History - Allergies and Home Meds Allergies/Adverse Reactions: Allergies codeine Allergy (Verified 01/16/21 18:11) Made me pass out Penicillins [PCN] Allergy (Verified 01/16/21 15:07) Rash rash to legs Primary Care Physician: Yaya Sanders MD [Primary Care Provider] - Surgical History: no surgical history Smoking Status: Former smoker Alcohol: None Drugs: None - Family History Maternal Family History: Family History (Last Reviewed 12/09/20 @ 14:18 by Jessica Fatima NP, [employer] MACHINE OPERATOR-C) Mother Anemia Hypertension High cholesterol Osteoporosis CVA (cerebral vascular accident) Angina pectoris Asthma Anxiety Arthritis Scleroderma Depression Myocardial infarction Heart disease Family History: Reports: Asthma, Cancer, COPD, Heart Disease - had bypass surgery Paternal Family History: Family History (Last Reviewed 12/09/20 @ 14:18 by Jessica Fatima NP, [employer] P[employer] MACHINE OPERATOR-C) Mother Anemia Hypertension High cholesterol Osteoporosis CVA (cerebral vascular accident) Angina pectoris Asthma Anxiety Arthritis Scleroderma Depression Myocardial infarction Heart disease Family History: Reports: Pulmonary Disease Review of Systems General: Reports: Malaise. Denies: Chills, Fever, Sweats Eyes: Denies: Visual changes - bilaterally, Diplopia ENT: Denies: Rhinorrhea, Sore throat Cardiovascular: Denies: Chest pain, Palpitations Respiratory: Denies: Dyspnea, Cough, Dyspnea on exertion Gastrointestinal: Reports: Abdominal pain, Nausea. Denies: Vomiting, Diarrhea, Melena, Hematochezia Genitourinary: Reports: Dysuria, Frequency. Denies: Hematuria Musculoskeletal: Denies: Back pain, Extremity Pain Skin: Denies: Rash, Wounds Neurological: Denies: Headache, Weakness, Numbness Physical Exam Vital Signs/Narrative: Vital Signs Temp Pulse Resp BP Pulse Ox 01/16/21 15:08 96.4 F L 95 16 197/116 H 98 Inital Vital Signs reviewed: Yes General: Well nourished, Well developed, No Acute Distress Head: Normocephalic, Atraumatic Eyes: Perrl, EOMI ENT: Moist mucous membranes, No rhinorrhea Neck: Supple, Nontender Cardiovascular: Regular rate, Regular rhythm, No murmurs Respiratory: No distress, CTA bilaterally, Chest nontender Abdomen: Soft, Nontender, Nondistended, Normal bowel sounds Back: Nontender, Normal Inspection Extremities: Nontender, No edema Skin: Normal color, No rash Neurological: Alert, Oriented x3, Cranial nerves II-XII grossly intact, Normal Strength, Normal Sensation Psychological: Normal affect, Normal Mood Diagnostic/Tx/Re-eval Clinical Impression(s) from Imaging Studies Abdomen/Pelvis CT 01/16/21 16:01 IMPRESSION: 1. Right UVJ calculus with marked obstructive uropathy. 2. Right upper pole renal cysts. 3. Large right adnexal cyst. 4. Findings consistent with pelvic congestion. 5. Calcified uterine fibroid. 6. Atherosclerotic changes of the abdominal aorta. Electronically Signed: Gumaro Bills DO at 18:26 EST Tel [phone], Service support , Transvaginal US 01/16/21 18:51 IMPRESSION: 1. Multiple uterine fibroids. Uterus is otherwise unremarkable. 2. Large simple cyst in the right ovary which correlates with the ultrasound finding. 3. Increased venous structures within the broad ligament and adnexa consistent with pelvic congestion. 4. Nonvisualization left ovary. Electronically Signed: Gumaro Bills DO at 20:42 EST Tel [phone], Service support , Laboratory Last Values WBC 18.4 K/mm3 (4.4-11.0) H 01/16/21 15:18 RBC 4.83 M/mm3 (4.2-5.4) 01/16/21 15:18 Hgb 13.7 g/dL (12.0-15.0) 01/16/21 15:18 Hct 43.7 % (37-47) 01/16/21 15:18 MCV 90.5 fL (81-99) 01/16/21 15:18 MCH 28.4 pg (27.0-32.0) 01/16/21 15:18 MCHC 31.4 g/dL (32-36) L 01/16/21 15:18 RDW Std Deviation 41.4 fl (35.1-43.9) 01/16/21 15:18 RDW Coeff of Marie 12.4 % (11.6-14.6) 01/16/21 15:18 Plt Count 327 K/mm3 (150-450) 01/16/21 15:18 MPV 10.1 fl (6.2-12.0) 01/16/21 15:18 Immature Gran % (Auto) 0.600 % (0.0-0.9) 01/16/21 15:18 Neut % (Auto) 90.9 % (47-70) H 01/16/21 15:18 Lymph % (Auto) 4.3 % (19-41) L 01/16/21 15:18 Mellette % (Auto) 3.7 % (0-10) 01/16/21 15:18 Eos % (Auto) 0.1 % (0-5) 01/16/21 15:18 Baso % (Auto) 0.4 % (0-1) 01/16/21 15:18 Absolute Neuts (auto) 16.7 X10^3/uL (2.0-7.7) H 01/16/21 15:18 Absolute Lymphs (auto) 0.79 X10^3/uL (0.83-4.51) L 01/16/21 15:18 Nucleated RBC % 0 % (0-5) 01/16/21 15:18 Sodium 137 mmol/L (136-145) 01/16/21 15:18 Potassium 3.5 mmol/L (3.5-5.1) 01/16/21 15:18 Chloride 100 mmol/L (98-107) 01/16/21 15:18 Carbon Dioxide 29.0 mmol/L (21.0-32.0) 01/16/21 15:18 Anion Gap 8 (5-15) 01/16/21 15:18 BUN 14 mg/dL (7-18) 01/16/21 15:18 Creatinine 0.91 mg/dL (0.55-1.02) 01/16/21 15:18 Estim Creat Clear Calc 33.90 ml/min 01/16/21 15:18 Est GFR (MDRD) Af Amer 80 mL/min (>60) 01/16/21 15:18 Est GFR (MDRD) Non-Af 66 mL/min (>60) 01/16/21 15:18 BUN/Creatinine Ratio 15.4 RATIO (10-20) 01/16/21 15:18 Glucose 158 mg/dL (74-106) H 01/16/21 15:18 Calcium 8.8 mg/dL (8.5-10.1) 01/16/21 15:18 Total Bilirubin 0.70 mg/dL (0.20-1.00) 01/16/21 15:18 AST 16 U/L (15-37) 01/16/21 15:18 ALT 13 U/L (13-56) 01/16/21 15:18 Alkaline Phosphatase 68 U/L (45-117) 01/16/21 15:18 Total Protein 7.8 g/dL (6.4-8.2) 01/16/21 15:18 Albumin 3.7 g/dL (3.2-5.0) 01/16/21 15:18 Globulin 4.1 g/dL (2.2-4.2) 01/16/21 15:18 Albumin/Globulin Ratio 0.9 RATIO (0.9-2.4) 01/16/21 15:18 Lipase 122 U/L (73-393) 01/16/21 15:18 Urine Color Yellow (Yellow) 01/16/21 15:18 Urine Clarity Clear (Clear) 01/16/21 15:18 Urine pH 8.0 (5.0 - 8.0) 01/16/21 15:18 Ur Specific [place] 1.015 (1.002-1.030) 01/16/21 15:18 Urine Protein 30 mg/dl (Negative) H 01/16/21 15:18 Urine Glucose (UA) 50 mg/dl (Normal) H 01/16/21 15:18 Urine Ketones 50 mg/dl (Negative) H 01/16/21 15:18 Urine Occult Blood 10 /ul (Negative) H 01/16/21 15:18 Urine Nitrite Negative (Negative) 01/16/21 15:18 Urine Bilirubin Negative mg/dL (Negative) 01/16/21 15:18 Urine Urobilinogen Normal mg/dl (Normal) 01/16/21 15:18 Ur Leukocyte Esterase Negative /ul (Negative) 01/16/21 15:18 Urine RBC 0-5 SEEN /hpf (0-5) 01/16/21 15:18 Urine WBC 0 SEEN /hpf (0-5) 01/16/21 15:18 Ur Squamous Epith Cells 0 SEEN /hpf (5-10) 01/16/21 15:18 Urine Bacteria 0 SEEN /hpf (None Seen) 01/16/21 15:18 Urine Mucus 0 SEEN /hpf (<or=2+) 01/16/21 15:18 - Medical Decision Making ASIC blood work showed a significantly elevated white blood cell count at 18. Normal creatinine. Urinalysis is clear. CT abdomen pelvis demonstrated marked hydronephrosis and ureteral dilatation. There is a distal ureteral stone present. There is also a 5 cm adnexal cystic structure. This raises a possible ovarian torsion. I spoke with the patient she states that a couple years ago she was told she had a cyst that was 2 cm. She is overall feeling better after morphine and Zofran. We are going to obtain a pelvic ultrasound. If there is no torsion we will discussed the case with urology. Ultrasound returned with no torsion. Simple cyst noted greater than 5 cm. She will need to follow-up with [facility] to discuss options for this management. I discussed from a urologic standpoint the case with Dr. Fortune. Given her 18,000 white count of the stone and the hydrowe are going to plan on admitting her. Patient is comfortable with this plan. When to give her a dose of Rocephin after blood and urine cultures were obtained. ED Disposition - Plan for ED Patient: Diagnosis: Ureteral stone with hydronephrosis, Adnexal cyst, Acute pelvic pain, female, Leukocytosis Referrals: Yaya Sanders MD [Primary Care Provider] -
[2021-01-16] MEDS: Ondansetron 4 MG/2 ML Vial IV ×2 (15:33→17:41)
[2021-01-16 15:36] LABS: Bacteria 0 SEEN /hpf (None Seen); Mucous, Urine 0 SEEN /hpf (<or=2+); Squamous Epithelial Cells - UA 0 SEEN /hpf (5-10); White Blood Cells 0 SEEN /hpf (0-5)
[2021-01-16 15:39] LABS: Absolute Lymphocyte Count 0.79 X10^3/uL (0.83-4.51); Absolute Neutrophil Count 16.7 X10^3/uL (2.0-7.7); Basophil# 0.08 X10^3/uL; Basophil% 0.4 % (0-1); Eosinophil# 0.02 X10^3/uL; Eosinophils% 0.1 % (0-5); Hematocrit 43.7 % (37-47); Hemoglobin 13.7 g/dL (12.0-15.0); Lymphocyte # 0.79 X10^3/ul (4.0); Lymphocyte % 4.3 % (19-41); Mean Corp Hgb Conc 31.4 g/dL (32-36); Mean Corpuscular Hgb 28.4 pg (27.0-32.0); Mean Corpuscular Volume 90.5 fL (81-99); Mean Platelet Vol. 10.1 fl (6.2-12.0); Monocyte# 0.68 X10^3/uL; Monocyte% 3.7 % (0-10); NRBC Flagged by Analyzer 0 % (0-5); Neutrophil # 16.68 X10^3/uL (2.7-7.7); Neutrophil % 90.9 % (47-70); Platelet Count 327 K/mm3 (150-450); RBC Distribution Width CV 12.4 % (11.6-14.6); RBC Distribution Width SD 41.4 fl (35.1-43.9); Red Blood Count 4.83 M/mm3 (4.2-5.4); White Blood Count 18.4 K/mm3 (4.4-11.0)
[2021-01-16 15:40] LABS: Color, Urine Yellow (Yellow); Glucose, Dipstick 50 mg/dl (Normal); Ketone-Dipstick 50 mg/dl (Negative); Leukocyte Esterase-Dipstick Negative /ul (Negative); Nitrite-Dipstick Negative (Negative); Occult Blood-Urine 10 /ul (Negative); Protein-Dipstick 30 mg/dl (Negative); Specific Gravity, Urine 1.015 (1.002-1.030); Urine Bilirubin Dipstick Negative (Negative); Urine Clarity Clear (Clear); Urine Urobilinogen Normal (Normal)
[2021-01-16 15:47] LABS: Red Blood Cells-Urine 0-5 SEEN /hpf (0-5)
[2021-01-16 15:57] LABS: ALB/GLOB Ratio 0.9 RATIO (0.9-2.4); AST(SGOT) 16 U/L (15-37); Alanine Aminotransfer ALT/SGPT 13 U/L (13-56); Albumin, Serum 3.7 g/dL (3.2-5.0); Alkaline Phosphatase 68 U/L (45-117); Anion Gap 8 (5-15); BUN 14 mg/dL (7-18); BUN/Creat Ratio 15.4 RATIO (10-20); Calcium,Total 8.8 mg/dL (8.5-10.1); Chloride 100 mmol/L (98-107); Creatinine, Serum 0.91 mg/dL (0.55-1.02); EST Glomerular Filtration Rate 66 mL/min (>60); Est Glom Filt Rate - Afr Amer 80 mL/min (>60); Globulin 4.1 g/dL (2.2-4.2); Glucose 158 mg/dL (74-106); Lipase 122 U/L (73-393); Potassium 3.5 mmol/L (3.5-5.1); Protein, Total 7.8 g/dL (6.4-8.2); Sodium Level 137 mmol/L (136-145)
--- NOTE | 2021-01-16 16:01 | CT_ITS ---
STUDY: CT ABDOMEN AND PELVIS WITH CONTRAST REASON FOR EXAM: Female, 65 years old. Right lower quadrant pain and leukocytosis. RADIATION DOSAGE (If Supplied By Facility): CTDIvol = ( 6.02 ) mGy, DLP = ( 347.05 ) mGycm TECHNIQUE: Transaxial images were obtained from the dome of the diaphragm to the symphysis pubis with oral contrast. 100mL Isovue-300 was administered. Sagittal and coronal images were reconstructed. Individualized dose optimization techniques were used for this CT. COMPARISON: 08/29/2018. FINDINGS: The visualized lung bases are unremarkable. The visualized portions of the heart are within normal limits. The liver is normal in size, contour and density. There is mild intrahepatic biliary ductal dilatation. The gallbladder is absent. There is mild extrahepatic biliary ductal dilatation suggesting cholecystectomy. Normal spleen. Pancreas is normal in size, contour and density. Mild pancreatic ductal dilatation without obstruction. Normal bilateral adrenal glands. There are multiple cortical cysts in the upper pole of the right kidney there is marked hydronephrosis and ureteral dilatation to the UVJ where there is nonobstructing 3 mm calcification (image 93, series 2) Normal left kidney. Normal visualized left ureter. Normal visualized stomach. Normal small intestine. Normal colon. There is non-visualization of the appendix. Normal abdominal aorta. Normal inferior vena cava. Normal retroperitoneum. Normal urinary bladder. The uterus is normal in size. Regular calcified fibroid off the posterior fundal wall. There is a 5.1 x 3.7 x 4 cm right adnexal cyst. There is marked prominence of vasculature of the broad ligaments and pelvis consistent with pelvic congestion. There is no pelvic lymphadenopathy. No free air or free fluid is seen within the peritoneal cavity. Normal abdominal wall. Normal osseous structures. CT/Abdomen/Pelvis WITH Contrast IMPRESSION: 1. Right UVJ calculus with marked obstructive uropathy. 2. Right upper pole renal cysts. 3. Large right adnexal cyst. 4. Findings consistent with pelvic congestion. 5. Calcified uterine fibroid. 6. Atherosclerotic changes of the abdominal aorta. Electronically Signed: Gumaro Bills DO at 18:26 EST Tel [phone], Service support ,
[2021-01-16] MEDS: Morphine 2 MG/ML Syringe IV (17:34)
--- NOTE | 2021-01-16 18:51 | US_ITS ---
STUDY: ULTRASOUND OF THE FEMALE PELVIS - COMPLETE REASON FOR EXAM: Female, 65 years old. Adnexal cyst seen on CT. Postmenopausal. TECHNIQUE: Transvaginal TECHNICAL QUALITY: Adequate. COMPARISON: CT of the abdomen and pelvis, 01/16/2021. FINDINGS: The uterus is retroverted and is in a midline position. The uterus measures 4.8 x 3.3 x 2.1 cm. Normal uterine cervix. The endometrium measures 1.2 mm in thickness, and is hyperechoic. There is no demonstrated endometrial mass. There are multiple uterine fibroids. There is a 2.0 x 2.3 x 2.4 cm calcified fibroid is thought to correlate with the calcified fibroid seen in the right posterior fundal wall. There is a smaller 1.5 x 0.8 x 0.3 cm hypoechoic solid serosal fibroid as well as a 1.3 x 0.7 x 1.4 cm subserosal fibroid. I.U.D. - The patient does not have an I.U.D. The right ovary is visualized. The right ovary measures 6.4 x 5.5 x 3.3 cm. There is a 5.6 x 4.4 x 3.0 cm simple cyst. This correlates with the CT finding. There is no visualized right adnexal mass or complex lesion. There is normal arterial vascularity. There is increased venous flow within the broad ligament and adnexa. The left ovary is not seen There is no visualized left adnexal mass or complex lesion. There is normal arterial vascularity. Enlarged venous structures about broad ligament and adnexa. There is no fluid in the cul-de-sac. Polycystic ovary disease: No. US/Transvaginal Non- IMPRESSION: 1. Multiple uterine fibroids. Uterus is otherwise unremarkable. 2. Large simple cyst in the right ovary which correlates with the ultrasound finding. 3. Increased venous structures within the broad ligament and adnexa consistent with pelvic congestion. 4. Nonvisualization left ovary. Electronically Signed: Gumaro Bills DO at 20:42 EST Tel [phone], Service support ,
--- NOTE | 2021-01-16 19:30 | NURSING ---
notified pt po drop to 88% on ra. 02 at 2lnc appilied
[2021-01-16] MEDS: Ceftriaxone 1 GM/50 ML BAG IV (21:13)
--- NOTE | 2021-01-16 21:20 | HP.PCM_ITS ---
Problem List (1) Ureteral stone with hydronephrosis Status: Acute Comment: Right side History of Present Illness Date of Admission: 01/16/21 Chief Complaint: right UVJ stone, flank pain The patient is a 65 year old Female who presented with severe flank pain, Ct scan with stone in distal right ureter and severe hydronehrosis admit for obstructing kidney stone and elevatad WBC Past Medical History Past Medical History (Chronic Problems): Chronic Problems (Last Reviewed 12/09/20 @ 14:18 by Jessica Fatima APPLICATIONS SUPPORT LEAD, APPLICATIONS SUPPORT LEAD-C) Protein calorie malnutrition (Chronic) Depression with anxiety (Chronic) Vitamin deficiency (Chronic) Hypertension (Chronic) COPD (chronic obstructive pulmonary disease) (Chronic) Anemia (Chronic) Seasonal allergies (Chronic) Bronchiectasis (Chronic) Shortness of breath (Chronic) Toe pain, right (Chronic) Tinea unguium (Chronic) Malnutrition (Chronic) unintended weight loss of about 35 lbs Hyperglycemia (Chronic) Poor dentition (Chronic) Asthma (Chronic) Toe pain, left (Chronic) Medical History: Medical History (Last Reviewed 01/16/21 @ 21:[address] Ahmet Fortune MD) Vitamin deficiency (Chronic) E56.9 Pneumonia (Resolved) J18.9 Hypertension (Chronic) I10 COPD (chronic obstructive pulmonary disease) (Chronic) J44.9 Anemia (Chronic) D64.9 Seasonal allergies (Chronic) J30.2 Toe pain, right (Chronic) M79.674 Tinea unguium (Chronic) B35.1 Acute respiratory failure with hypoxia (Acute) J96.01 on chronic w/3L oxygen requirement Malnutrition (Chronic) E46 unintended weight loss of about 35 lbs Hyperglycemia (Chronic) R73.9 Poor dentition (Chronic) K08.9 Asthma (Chronic) J45.909 Hypoxemia (Acute) R09.02 Aspergillosis (Resolved) B44.9 History of Left aspergilloma Toe pain, left (Chronic) M79.675 Community acquired pneumonia (Acute) J18.9 Vitamin D deficiency E55.9 Allergies codeine Allergy (Verified 01/16/21 18:11) Made me pass out Penicillins [PCN] Allergy (Verified 01/16/21 15:07) Rash rash to legs Home Medications: Ambulatory Orders Medication Instructions Recorded albuterol sulfate 0.63 mg/3 mL 0.63 mg INHALATION Q6H PRN #90 ml 05/12/19 solution for nebulization mirtazapine 15 mg tablet 15 mg PO QHS #90 tab 09/30/20 budesonide 1 mg/2 mL suspension 1 mg INHALATION BID #60 ml 12/09/20 for nebulization Carvedilol [Coreg] 12.5 mg PO BID 01/16/21 Cholecalciferol (Vitamin D3) 50,000 unit PO WE 01/16/21 [D3-50] Surgical History: Surgical History (Last Reviewed 01/16/21 @ 21:[address] 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 Smoking Status: Former smoker Tobacco Use: Cigarettes Alcohol: None Drugs: None - *Family History Maternal Family History: Family History (Last Reviewed 01/16/21 @ 21:[address] Ahmet Fortune MD) Mother Anemia Hypertension High cholesterol Osteoporosis CVA (cerebral vascular accident) Angina pectoris Asthma Anxiety Arthritis Scleroderma Depression Myocardial infarction Heart disease History Items: Asthma, Cancer, COPD, Heart Disease - had bypass surgery Paternal Family History: Family History (Last Reviewed 01/16/21 @ 21:[address] Ahmet Fortune MD) Mother Anemia Hypertension High cholesterol Osteoporosis CVA (cerebral vascular accident) Angina pectoris Asthma Anxiety Arthritis Scleroderma Depression Myocardial infarction Heart disease History Items: Pulmonary Disease Review of Systems Constitutional: Denies: Chills, Fever, Weight Change HEENT: Denies: Head Aches, Sinus Congestion, Sinus Drainage Cardiovascular: Denies: Chest Pain, Palpitations Respiratory: Denies: Cough, Shortness of breath at rest, Sputum production Gastrointestinal: Denies: Abdominal Pain, Nausea, Vomiting Genitourinary: Denies: Dysuria Musculoskeletal: Denies: Joint Pain, Joint Tenderness Skin: Denies: Rash, Wounds Neurological: Denies: Numbness, Tingling, Focal weakness Psychiatric: Denies: Anxiety, Depression, Homicidal Ideations, Suicidal Ideations Hematologic/ Lymphatic: Denies: Easy Bruising, Easy Bleeding VTE Information - Inpt Only VTE Present on Admission: No VTE Mechan Device Prophylaxis: SCD's Patient Problems: Active and Suspected Problems (Last Reviewed 12/09/20 @ 14:18 by Jessica Fatima APPLICATIONS SUPPORT LEAD, APPLICATIONS SUPPORT LEAD-C) Ureteral stone with hydronephrosis (Acute) Right side Adnexal cyst (Acute) Acute pelvic pain, female (Acute) Leukocytosis (Acute) - Physical Exam Vitals/I&O's: Vital Signs Temp Pulse Resp BP Pulse Ox 97.9 F 98 17 152/101 H 98 01/16/21 21:14 01/16/21 21:14 01/16/21 21:14 01/16/21 21:14 01/16/21 21:14 Oxygen Flow Rate (L/min) 2 Oxygen Delivery Method Nasal Cannula Weight: 35.8 kg Body Mass Index (BMI) 12.7 General: Alert, Oriented x3, Cooperative HEENT: Atraumatic, PERRLA, EOMI, Normocephalic Neck: Supple, No JVD, Negative Carotid Bruits Lungs: Clear to auscultation, Normal air movement Cardiovascular: Regular rate, No murmurs Abdomen: Bowel Sounds Present, Soft, Non Tender Extremities: No edema, Capillary Refill Less than 3 Seconds Skin: No rashes, No breakdown Musculoskeletal: No Tenderness to Palpation of Joints or Extremities Neurological: Cranial nerves II-XII grossly intact Psych/Mental Status: Normal Affect, Appropriate Laboratory Results 01/16/21 15:18: WBC 18.4 H, RBC 4.83, Hgb 13.7, Hct 43.7, MCV 90.5, MCH 28.4, MCHC 31.4 L, RDW Std Deviation 41.4, RDW Coeff of Marie 12.4, Plt Count 327, MPV 10.1, Immature Gran % (Auto) 0.600, Neut % (Auto) 90.9 H, Lymph % (Auto) 4.3 L, [place] % (Auto) 3.7, Eos % (Auto) 0.1, Baso % (Auto) 0.4, Absolute Neuts (auto) 16.7 H, Absolute Lymphs (auto) 0.79 L, Nucleated RBC % 0 01/16/21 15:18: Sodium 137, Potassium 3.5, Chloride 100, Carbon Dioxide 29.0, Anion Gap 8, BUN 14, Creatinine 0.91, Estim Creat Clear Calc 33.90, Est GFR (MDRD) Af Amer 80, Est GFR (MDRD) Non-Af 66, BUN/Creatinine Ratio 15.4, Glucose 158 H, Calcium 8.8, Total Bilirubin 0.70, AST 16, ALT 13, Alkaline Phosphatase 68, Total Protein 7.8, Albumin 3.7, Globulin 4.1, Albumin/Globulin Ratio 0.9, Lipase 122 01/16/21 15:18: Urine Color Yellow, Urine Clarity Clear, Urine pH 8.0, Ur Specific [place] 1.015, Urine Protein 30 H, Urine Glucose (UA) 50 H, Urine Ketones 50 H, Urine Occult Blood 10 H, Urine Nitrite Negative, Urine Bilirubin Negative, Urine Urobilinogen Normal, Ur Leukocyte Esterase Negative, Urine RBC 0-5 SEEN, Urine WBC 0 SEEN, Ur Squamous Epith Cells 0 SEEN, Urine Bacteria 0 SEEN, Urine Mucus 0 SEEN Current Medications Ceftriaxone Sodium (Rocephin) 1 gm in 50 mls @ 100 mls/hr IV X1 ONE Stop: 01/16/21 21:26 Last Admin: 01/16/21 21:13 Dose: 100 mls/hr Documented by: Assessment/Plan All Active Problems (Last Reviewed 12/09/20 @ 14:18 by Jessica Fatima APPLICATIONS SUPPORT LEAD, APPLICATIONS SUPPORT LEAD- C) Ureteral stone with hydronephrosis (Acute) Adnexal cyst (Acute) Acute pelvic pain, female (Acute) Leukocytosis (Acute) Urinary tract infection with hematuria (Acute) Pneumonia (Resolved) Acute respiratory failure with hypoxia (Acute) Hypoxemia (Acute) Aspergillosis (Resolved) Community acquired pneumonia (Acute) admit to hospital NPO start antibitoics plan for cysto and right stent tomorrow.
[2021-01-16] MEDS: Lactated Ringers 1,000 ML 150 ML IV (22:07)
[2021-01-16] MEDS: Mirtazapine 15 MG Tablet PO (22:31)
[2021-01-16 22:41] LABS: Lactic Acid 2.5 mmol/L (0.4-1.9)
--- NOTE | 2021-01-16 23:20 | NURSING ---
pt states she isn't having surgery. stated the dr was going to go over options with her.
[2021-01-17] VITALS (12 sets, daily range): BP systolic 95–129; BP diastolic 65–80; PULSE 64–88; RESP 16–18; TEMP 36.6–37.3; O2SAT 92–98; BMI 11.0
[2021-01-17 02:01] LABS: Reflex Lactate? Y
[2021-01-17 02:55] LABS: Mean Corp Hgb Conc 31.7 g/dL (32-36); Mean Corpuscular Hgb 28.8 pg (27.0-32.0); Mean Corpuscular Volume 90.7 fL (81-99); Mean Platelet Vol. 10.2 fl (6.2-12.0); Platelet Count 300 K/mm3 (150-450); RBC Distribution Width CV 12.7 % (11.6-14.6); RBC Distribution Width SD 42.4 fl (35.1-43.9); Red Blood Count 4.52 M/mm3 (4.2-5.4); White Blood Count 18.5 K/mm3 (4.4-11.0)
[2021-01-17 03:06] LABS: International Normalized Ratio 1.2; Prothrombin Time (Protime)PT. 14.5 SECONDS (11.7-14.9)
[2021-01-17 03:07] LABS: Partial Thromboplast Time 27.7 Seconds (24.1-36.2)
[2021-01-17 03:08] LABS: Anion Gap 4 (5-15); BUN 13 mg/dL (7-18); BUN/Creat Ratio 17.7 RATIO (10-20); Calcium,Total 8.5 mg/dL (8.5-10.1); Chloride 102 mmol/L (98-107); Creatinine, Serum 0.74 mg/dL (0.55-1.02); EST Glomerular Filtration Rate 84 mL/min (>60); Est Glom Filt Rate - Afr Amer 101 mL/min (>60); Estimated Creatinine Clearance 26.63 ml/min; Glucose 105 mg/dL (74-106); Sodium Level 139 mmol/L (136-145)
[2021-01-17] MEDS: Lactated Ringers 1,000 ML 150 ML IV ×2 (03:52→16:48)
--- NOTE | 2021-01-17 06:00 | EKG12_ITS ---
Test Reason : PRE-OP Blood Pressure : / mmHG Vent. Rate : 086 BPM Atrial Rate : 086 BPM P-R Int : 160 ms QRS Dur : 130 ms QT Int : 412 ms P-R-T Axes : 080 114 053 degrees QTc Int : 493 ms Normal sinus rhythm Biatrial enlargement Right bundle branch block Left posterior fascicular block Bifascicular block Abnormal ECG Confirmed by ELAINE GONZALEZ, OLIVIA ([id number]), assignment desk editor HERMAN EDWARDS ([id number]) on 01/18/2021 11:24:31 AM Referred By: HELEN Confirmed By:OLIVIA HENRY MD
--- NOTE | 2021-01-17 07:42 | PCM.PN.BLA ---
Progress Note 65-year-old female was admitted last night for an obstructing stone in the distal right ureter she has hydroureteronephrosis with obstruction. She does have an elevated white blood count of 18,000, she had a lactic acid of 2.1 last night, lactic acids resolving this morning, white blood count continues to be high. She is low-grade fever. Suspect she has an infection and suspect she has pyelonephritis of the right kidney and may be early sepsis with her presentation. She is clinically stable so far with no changes in her blood pressure etc. she does have low-grade fevers. On exam she looks remarkably stable thin elderly female Abdomen soft and benign Extremities normal Assessment and plan 65-year-old female admitted for an obstructing stone infection likely early sepsis, she is n.p.o. for surgery today plan to take her surgery for stent placement on the right side explained to the patient why we have to just place a stent at this point and why would not be safe to go after the stone etc. Were to proceed with cystoscopy stent placement continue with ceftriaxone broad-spectrum antibiotics for infection await the urine cultures plan discharge once her infection resolves and she have to come back as an outpatient at the stone treated.
--- NOTE | 2021-01-17 10:26 | CASEMGMT ---
Social Work Note Per transmission line engineer questions, pt has completed HCPOA and LW and provided copies to [facility]. SW reviewed chart, only HCPOA on file. SW in to speak with pt. SW updated pt that only HCPOA is on file and not LW. Pt states she should have copy of LW at home, is able to bring in copy. SW printed off HCPOA and placed on pt's chart. Martha Amador MONKEY TRAINER, PROFILE SAW OPERATOR
--- NOTE | 2021-01-17 10:40 | CASEMGMT ---
RN EDNA Face to Face with patient for initial transition planning/care coordination assessment. RN CM introduced self and role at [facility]. Patient lying in bed, alert and oriented. Patient willing to participate in assessment and is able to answer all questions appropriately. Care providers, pharmacy, and demographics verified. Patient wishes to discharge home, denies need for home health at this time. Patient states she has no further needs or concerns at this time. CM to follow for discharge planning needs that may arise. PCP: Marilyn Specialists: Abundio oracle business intelligence developer Preferred Pharmacy: [facility] Insurance: [employer] Prescription Benefit: yes Living Will/HPOA: none LNOK: brother/sister Living Arrangements: patient lives alone in a first floor apartment with no steps to enter the home. Patient states is independent at home. Transportation: self/sister DME/HHC: Patient states has a nebulizer at home. Patient denies previous HHC. Disposition Plan: Patient to discharge home with family support and follow-up plans in place. Martha DUMONT, RN, CM
[2021-01-17] MEDS: Carvedilol 12.5 MG Tablet PO ×2 (11:10→16:49)
[2021-01-17] MEDS: Ceftriaxone 1 GM/50 ML BAG IV ×2 (11:45→21:25)
[2021-01-17] MEDS: Lidocaine Jelly 2% 20 ML Syringe (URO-JET) 20 APPLIC (13:20)
--- NOTE | 2021-01-17 13:30 | PCM.OPRPT ---
Problem List (1) Ureteral stone with hydronephrosis Status: Acute Comment: Right side Report of Operation Date of Procedure: 01/17/21 Pre-Operative Diagnosis: Obstruction of the right ureter from a ureteral calculi and early sepsis Post-Operative Diagnosis: Same Surgery/Procedure Performed:: Cystoscopy, right retrograde pyelogram, right stent placement Description of Surgical Findings:: Patient was taken back to the operating room after induction of general anesthesia, the patient was placed in dorsolithotomy position. The urethra and genitals were prepped and draped in usual sterile fashion. Using a 21 Marshallese rigid cystourethroscope the entire length of the urethra was normal then went into the bladder. Identified the trigone the left and right ureteral orifice. I then cannulated the right orifice and advanced a wire up into the kidney. I then backloaded a 5 Marshallese open ended catheter over the wire and injected contrast to delineate the anatomy. After the retrograde was performed I then used fluoroscopic images and guidance to advanced a wire up into the kidney and over the 0.038 glidewire I advanced a 6 Marshallese by 26 cm double pigtail stent. I then pulled the 0.038 Glidewire off and the stent coiled in the kidney bladder good position. The bladder was then drained. We confirmed the position of the stent by fluoroscopy. Patient anesthetic was reversed and was taken back to the PACU in good condition. Type of Anesthesia:: General Drains: right stent - Admit VTE Documentation VTE Present on Admission: No VTE Mechan Device Prophylaxis: SCD's
--- NOTE | 2021-01-17 14:30 | NT.THERAPY_ITS ---
Nutrition Therapy Report - History Current diet / nutrition support order:: regular- intake to be established - Anthropometric Measurements Height:: 5 ft 6 in Weight:: 30.9 kg Body Mass Index (BMI):: 11.0 - Relevant Labs Relevant Labs:: WBC 18.5 K/mm3 (4.4-11.0) H 01/17/21 02:35 MCHC 31.7 g/dL (32-36) L 01/17/21 02:35 Neut % (Auto) 90.9 % (47-70) H 01/16/21 15:18 Lymph % (Auto) 4.3 % (19-41) L 01/16/21 15:18 Absolute Neuts (auto) 16.7 X10^3/uL (2.0-7.7) H 01/16/21 15:18 Absolute Lymphs (auto) 0.79 X10^3/uL (0.83-4.51) L 01/16/21 15:18 Carbon Dioxide 33.0 mmol/L (21.0-32.0) H 01/17/21 02:35 Anion Gap 4 (5-15) L 01/17/21 02:35 Glucose 158 mg/dL (74-106) H 01/16/21 15:18 Lactic Acid 2.5 mmol/L (0.4-1.9) H* 01/16/21 21:55 - Assessment Food / Nutrition-Related History:: Pt states she has to eat small, frequent meals at home d/t SOB w/ eating and hx of COPD. Tries to drink 2 cartons of Pulmocare per day (710 calories, 30 g protein). States wt has been ~73# for some time, however CBW 68.1# suggesting a 4.9#/7% wt loss. Pt suspects wt loss was during acute illness. Hx of nutrition education w/ [facility] outpatient RDN in 2018/2018. States she follows recommendations from previous [facility] RDN and from [facility] dietitian. - Nutrition Diagnosis Problem / Etiology / Signs & Symptoms (PES):: severe, chronic malnutrition related to increased energy needs w/ COPD as evidenced by unintentional wt loss of 4.9#/7% <1 month, estimated PO intake meeting <75% of estimated nutritional needs >1 month, severe loss of subcutaneous fat and muscle mass Evidence of Malnutrition Exists:: Yes Severe PCM:: Chronic Illness - Nutrition Intervention Nutrition Prescription:: 950-1100 calories/day (30-35 calories/kg). 45-60 g protein/day (1.5-2 g/kg). 1100mL fluid/day (35mL/kg) - Food / Nutrient Delivery Interventions Summary of nutrition intervention:: Pt agreeable to Ensure Enlive w/ medpass once PO diet advanced after procedure. Encouragement to continue small, frequent nutrient dense meals/stancks. Pt w/ no questions at this time. Nutrition support ordered as / adjusted to:: regular diet when medically indicated; 120mL ensure enlive 4x/day w/ medpass Nutrition education provided?: Yes - MNT Monitoring Further MNT monitoring and evaluation required?: Yes MNT Follow-up in:: 3-5 days
--- NOTE | 2021-01-17 16:59 | CHAPLAIN ---
Type of Pastoral Visit _x__ Initial Visit ___ Follow-up Visit ___ On-call Visit ___ General Patient Visit ___ Spiritual Assessment ___ Family Conference ___ Bereavement ___ Rapid Response ___ Code Blue ___ Other (describe below) Pastoral Care Referral From _x__ Patient ___ Family ___ Nurse ___ Physician ___ Sulky Driver ___ Horse Show Judge ___ Other (describe below) Sacrament/Intervention _x__ Active listening ___ Anointing ___ Gnosticism ___ Bereavement ___ Communion ___ Cristiane exploration ___ _x__ Life review ___ Prayer ___ Reconciliation ___ Sacrament of Sick _x__ Supportive presence ___ Wedding ___ Other (describe below) Pastoral Comments
[2021-01-17] MEDS: Mirtazapine 15 MG Tablet PO (21:25)
[2021-01-17] MEDS: Lactated Ringers 1,000 ML 100 ML IV (21:25)
[2021-01-18 02:13] VITALS: BP 92/56; PULSE 61; RESP 16; TEMP 36.7; O2SAT 95
[2021-01-18 05:05] LABS: Absolute Lymphocyte Count 1.84 X10^3/uL (0.83-4.51); Absolute Neutrophil Count 3.9 X10^3/uL (2.0-7.7); Basophil# 0.05 X10^3/uL; Basophil% 0.7 % (0-1); Eosinophil# 0.51 X10^3/uL; Eosinophils% 7.2 % (0-5); Hematocrit 33.2 % (37-47); Hemoglobin 10.3 g/dL (12.0-15.0); Lymphocyte # 1.84 X10^3/ul (4.0); Mean Corpuscular Hgb 29.2 pg (27.0-32.0); Mean Corpuscular Volume 94.1 fL (81-99); Monocyte# 0.73 X10^3/uL; Monocyte% 10.3 % (0-10); NRBC Flagged by Analyzer 0 % (0-5); Neutrophil # 3.93 X10^3/uL (2.7-7.7); Neutrophil % 55.5 % (47-70); Platelet Count 197 K/mm3 (150-450); RBC Distribution Width SD 44.8 fl (35.1-43.9); Red Blood Count 3.53 M/mm3 (4.2-5.4); White Blood Count 7.1 K/mm3 (4.4-11.0)
[2021-01-18 05:23] LABS: Anion Gap 0 (5-15); BUN 11 mg/dL (7-18); BUN/Creat Ratio 20.8 RATIO (10-20); Calcium,Total 8.1 mg/dL (8.5-10.1); Chloride 109 mmol/L (98-107); Creatinine, Serum 0.53 mg/dL (0.55-1.02); EST Glomerular Filtration Rate 123 mL/min (>60); Est Glom Filt Rate - Afr Amer 148 mL/min (>60); Estimated Creatinine Clearance 26.63 ml/min; Glucose 85 mg/dL (74-106); Potassium 4.8 mmol/L (3.5-5.1); Sodium Level 144 mmol/L (136-145)
[2021-01-18 08:25] VITALS: BP 130/82; PULSE 79; RESP 16; TEMP 37.3; O2SAT 94
[2021-01-18] MEDS: Carvedilol 12.5 MG Tablet PO (08:28)
[2021-01-18] MEDS: Ceftriaxone 1 GM/50 ML BAG IV (10:19)
--- NOTE | 2021-01-18 14:48 | DCINST_ITS ---
Discharge Diet: Light diet - advance as tolerated Discharge Activity: Return to Normal Activity, May not drive while taking narcotic pain medications. Call your doctor if you observe: Fever of 101 or Higher Allergies/Adverse Reactions: Allergies codeine Allergy (Verified 01/16/21 18:11) Made me pass out Penicillins [PCN] Allergy (Verified 01/16/21 15:07) Rash rash to legs Medications to take at Discharge albuterol sulfate 0.63 mg/3 mL solution for nebulization 0.63 mg INHALATION Q6H PRN #90 ml 05/12/19 mirtazapine 15 mg tablet 15 mg PO QHS #90 tab 09/30/20 budesonide 1 mg/2 mL suspension for nebulization 1 mg INHALATION BID #60 ml 12/09/20 Carvedilol [Coreg] 12.5 mg PO BID 01/16/21 Cholecalciferol (Vitamin D3) [D3-50] 50,000 unit PO WE 01/16/21 Ciprofloxacin [Cipro] 500 mg PO BID #6 tab 01/18/21 Ibuprofen 600 mg PO Q6H PRN PRN #20 tab 01/18/21 The following prescriptions were given: Ciprofloxacin [Cipro] 500 mg PO BID #6 tab Transmission Status: Pending to [id number] Ibuprofen 600 mg PO Q6H PRN PRN #20 tab PRN Reason: Pain 1-10 Or Fever Transmission Status: Pending to [id number] Primary Care Physician: Yaya Sanders MD [Primary Care Provider] - Test Results: Test results from this visit will be discussed in further detail at your follow- up appointment, if applicable. Please Follow Up With: Ahmet Fortune MD When: please call to make an appointment.
--- NOTE | 2021-01-18 14:48 | DS.PCM_ITS ---
Discharge Date and Diagnosis - Problem List Patient Problems: Active and Suspected Problems (Last Reviewed 01/16/21 @ 21:[address] Ahmet Fortune MD) Ureteral stone with hydronephrosis (Acute) Right side Adnexal cyst (Acute) Acute pelvic pain, female (Acute) Leukocytosis (Acute) Date of Admission: 01/16/21 Date of Discharge: 01/18/21 - Primary Discharge Diagnosis Acute Problems: Active Problems (Last Reviewed 01/16/21 @ 21:[address] Ahmet Fortune MD) Ureteral stone with hydronephrosis (Acute) Right side Adnexal cyst (Acute) Acute pelvic pain, female (Acute) Leukocytosis (Acute) - Secondary Discharge Diagnosis Chronic Problems: Chronic Problems (Last Reviewed 01/16/21 @ 21:[address] Ahmet Fortune MD) Protein calorie malnutrition (Chronic) Depression with anxiety (Chronic) Vitamin deficiency (Chronic) Hypertension (Chronic) COPD (chronic obstructive pulmonary disease) (Chronic) Anemia (Chronic) Seasonal allergies (Chronic) Bronchiectasis (Chronic) Shortness of breath (Chronic) Toe pain, right (Chronic) Tinea unguium (Chronic) Malnutrition (Chronic) unintended weight loss of about 35 lbs Hyperglycemia (Chronic) Poor dentition (Chronic) Asthma (Chronic) Toe pain, left (Chronic) Hospital Course and Treatment Operations: - - Cystoscopy right stent placement Summary of Care Provided: The patient is a 65 year old female who was admitted for elevated white blood count of 18,000 also was found to have a distal ureteral calculi causing obstruction she also has an normal adnexal cystic mass in the pelvis will need to see gynecology regarding this. She underwent a cystoscopy and stent placement. She was also found to be very cachectic and thin and was seen by dietitian who recommended healthy diet etc. on discharge all her cultures were negative we will send her home a few days of Cipro and some pain medicine and she will be scheduled for outpatient ureteroscopy and laser of her obstructing stone and removal of stent also will have her see gynecology. Patient Problems: Active and Suspected Problems (Last Reviewed 01/16/21 @ 21:[address] Ahmet Fortune MD) Ureteral stone with hydronephrosis (Acute) Right side Adnexal cyst (Acute) Acute pelvic pain, female (Acute) Leukocytosis (Acute) - Physical Exam Vitals/I&O's: Vital Signs Temp Pulse Resp BP Pulse Ox 99.2 F H 79 16 130/82 H 94 01/18/21 08:25 01/18/21 08:25 01/18/21 08:25 01/18/21 08:25 01/18/21 08:25 Oxygen Flow Rate (L/min) 2 Oxygen Delivery Method Room Air Weight: 30.9 kg Body Mass Index (BMI) 11.0 Intake and Output for Last 24 Hours 01/16/21 01/17/21 01/18/21 23:59 23:59 23:59 Intake Total 350 / 350 4150.83 / 4150.83 1541.67 / 1541.67 Output Total 300 / 300 850 / 850 400 / 400 Balance 50 / 50 3300.83 / 3300.83 1141.67 / 1141.67 General: Alert, Oriented x3, Cooperative HEENT: Atraumatic, PERRLA, EOMI, Normocephalic Neck: Supple, No JVD, Negative Carotid Bruits Lungs: Clear to auscultation, Normal air movement Cardiovascular: Regular rate, No murmurs Abdomen: Bowel Sounds Present, Soft, Non Tender Extremities: No edema, Capillary Refill Less than 3 Seconds Skin: No rashes, No breakdown Musculoskeletal: No Tenderness to Palpation of Joints or Extremities Neurological: Cranial nerves II-XII grossly intact Psych/Mental Status: Normal Affect, Appropriate Microbiology Past 72 Hours 01/16/21 15:18 Urine, Clean Catch Urine Culture - Final Mixed Gram Pos & Gram Neg Org 01/16/21 21:17 Mucosa - Nose SARS-CoV-2 Antigen (Rapid) - Final Laboratory Results 01/18/21 04:54: WBC 7.1, RBC 3.53 L, Hgb 10.3 L, Hct 33.2 L, MCV 94.1, MCH 29.2, MCHC 31.0 L, RDW Std Deviation 44.8 H, RDW Coeff of Marie 13.0, Plt Count 197, MPV 10.0, Immature Gran % (Auto) 0.300, Neut % (Auto) 55.5, Lymph % (Auto) 26.0, [place] % (Auto) 10.3 H, Eos % (Auto) 7.2 H, Baso % (Auto) 0.7, Absolute Neuts (auto) 3.9, Absolute Lymphs (auto) 1.84, Nucleated RBC % 0 01/18/21 04:54: Sodium 144, Potassium 4.8, Chloride 109 H, Carbon Dioxide 35.0 H , Anion Gap 0 L, BUN 11, Creatinine 0.53 L, Estim Creat Clear Calc 26.63, Est GFR (MDRD) Af Amer 148, Est GFR (MDRD) Non-Af 123, BUN/Creatinine Ratio 20.8 H, Glucose 85, Calcium 8.1 L Current Medications Acetaminophen (Acetaminophen 325 Mg Tablet) 325 - 650 mg PO Q4H PRN PRN PRN Reason: pain score 1-10/fever/headache Hydrocodone Bitart/Acetaminophen (Hydrocodone Bitartrate/Apap 5/325 Tablet) 1 - 2 tablet PO Q6H PRN PRN PRN Reason: Pain Score 1-5 Albuterol Sulfate (Albuterol 2.5 Mg/3 Ml Vial.Neb.) 2.5 mg INHALATION Q6H PRN PRN PRN Reason: shortness of breath/wheezing Budesonide (Budesonide Respules 0.5 Mg/2 Ml Ampul.Neb.) 1 mg INHALATION BID [facility] Last Admin: 01/18/21 08:32 Dose: Not Given Documented by: Carvedilol ([facility] 12.5 Mg Tablet) [facility] Admin: 01/18/21 08:28 Dose: 12.5 mg Documented by: Ergocalciferol (Ergocalciferol 50,000 Unit Capsule) 50,000 unit PO WE [facility] Last Admin: 01/18/21 08:28 Dose: 50,000 unit Documented by: Lactated Ringer's () 1,000 mls @ 100 mls/hr IV .Q10H [facility] Last Infusion: 01/18/21 08:34 Dose: Infused Documented by: Ceftriaxone Sodium (Rocephin) 1 gm in 50 mls @ 100 mls/hr IV Q12 [facility] Last Infusion: 01/18/21 10:49 Dose: Infused Documented by: Sodium Chloride () 250 mls @ 15 mls/hr IV .[id number] PRN PRN Reason: Saline Flush Last Admin: 01/18/21 08:34 Dose: 15 mls/hr Documented by: Sodium Chloride () 250 mls @ 15 mls/hr IV .[id number] PRN PRN Reason: Additional IVPB Infusion Ketorolac Tromethamine (Ketorolac 15 Mg/Ml Vial) 15 mg IV Q6H PRN PRN PRN Reason: PAIN Stop: 01/18/21 21:25 Mirtazapine (Mirtazapine 15 Mg Tablet) 15 mg PO QHS [facility] Last Admin: 01/17/21 21:25 Dose: 15 mg Documented by: Morphine Sulfate (Morphine 2 Mg/Ml Syringe) 2 mg IV Q2H PRN PRN PRN Reason: Pain Score 6-10 Nutritional Formula (Lactose Free) (Ensure Enlive 120 Ml Liquid) 120 ml PO 4X/DAY [facility] Last Admin: 01/18/21 14:04 Dose: 120 ml Documented by: Ondansetron HCl (Ondansetron 4 Mg/2 Ml Vial) 4 mg IV Q8H PRN PRN PRN Reason: Nausea Sodium Chloride (0.9% Saline Lock 10 Ml Syringe) 10 - 40 ml IV UD PRN PRN Reason: SALINE FLUSH Discharge Diet: Light diet - advance as tolerated Discharge Activity: Return to Normal Activity, May not drive while taking narcot ic pain medications. Call your doctor if you observe: Fever of 101 or Higher Home Medications: Medications to take at Discharge albuterol sulfate 0.63 mg/3 mL solution for nebulization 0.63 mg INHALATION Q6H PRN #90 ml 05/12/19 mirtazapine 15 mg tablet 15 mg PO QHS #90 tab 09/30/20 budesonide 1 mg/2 mL suspension for nebulization 1 mg INHALATION BID #60 ml 12/09/20 Carvedilol [Coreg] 12.5 mg PO BID 01/16/21 Cholecalciferol (Vitamin D3) [D3-50] 50,000 unit PO WE 01/16/21 Ciprofloxacin [Cipro] 500 mg PO BID #6 tab 01/18/21 Ibuprofen 600 mg PO Q6H PRN PRN #20 tab 01/18/21 Following Prescriptions Were Given to Patient: Ciprofloxacin [Cipro] 500 mg PO BID #6 tab Transmission Status: Pending to [id number] Ibuprofen 600 mg PO Q6H PRN PRN #20 tab PRN Reason: Pain 1-10 Or Fever Transmission Status: Pending to [id number] Primary Care Physician: Yaya Sanders MD [Primary Care Provider] - Please Follow Up With: Ahmet Fortune MD When: please call to make an appointment. Medical Necessity - Tobacco Use Smoking Status: Former smoker Tobacco Use: Cigarettes Meaningful Use Info Meaningful Use Diagnoses (Choose all that apply): None applicable
--- NOTE | 2021-01-18 15:52 | PHA.DC.MC ---
Pharmacy Service has performed discharge medication reconciliation and counseling for this patient. 1. CIPROFLOXACIN 500MG PO BID X 3 DAYS 2. IBUPROFEN 600MG PO Q6H PRN PAIN/FEVER The patient's discharge medication list was reviewed for discrepancies and discrepancies were resolved. Home Medications albuterol sulfate 0.63 mg/3 mL solution for nebulization 0.63 mg INHALATION Q6H PRN #90 ml 05/12/19 mirtazapine 15 mg tablet 15 mg PO QHS #90 tab 09/30/20 budesonide 1 mg/2 mL suspension for nebulization 1 mg INHALATION BID #60 ml 12/09/20 Carvedilol [Coreg] 12.5 mg PO BID 01/16/21 Cholecalciferol (Vitamin D3) [D3-50] 50,000 unit PO WE 01/16/21 Ciprofloxacin [Cipro] 500 mg PO BID #6 tab 01/18/21 Ibuprofen 600 mg PO Q6H PRN PRN #20 tab 01/18/21 The patient was counseled on the following discharge medications and changes in medications for homegoing were reviewed. The Reason for Use, instructions for use, and potential side effects were reviewed for all new medications. The patient's questions regarding all of their medications were answered. The patient was able to verbally demonstrate an understanding of their discharge medications.
[2021-01-18 16:15] VITALS: BP 123/82; PULSE 81; RESP 16; TEMP 37; O2SAT 94
--- NOTE | 2021-01-19 15:54 | CASEMGMT ---
ANGELINE BISHOP Discharge Follow-up Phone Call: SHAYYLaurie: Shonna Strata: 3 Call Date: 01/19/21 Discharge Date: 01/18/21 Time of Call: 1555 Duration: 3 min Admitting Diagnosis: Kidney stone ANGELINE BISHOP completed follow-up phone call after recent hospitalization. Patient states she is doing well. Patient had no questions regarding discharge instructions. Patient was able to fill prescriptions without any issues. Patient is calling to schedule follow-up appt with Dr. Fortune and already has appt with PCP on 01/26. Patient had no further questions or concerns at this time.
== END 2021-01-18 16:25 | disposition home or self-care (01) | DRG 853 ==
LOC: ED 15:56 → MS3 21:26
PROVIDERS: Anesthesiology; Admitting Provider Urology; Emergency Provider Emergency Medicine; PCP Internal Medicine; Visit Provider Urology
PROC: 0T768DZ Dilation of Right Ureter with Intraluminal Device, Via Natural or Artificial Opening Endoscopic (ICD-10-PCS; CPT 52332; principal; 2021-01-17 13:20)
DX: A41.9 Sepsis, unspecified organism (principal); E43 Unspecified severe protein-calorie malnutrition; N13.6 Pyonephrosis; Z68.1 Body mass index [BMI] 19.9 or less, adult; N28.82 Megaloureter; N83.201 Unspecified ovarian cyst, right side; J47.9 Bronchiectasis, uncomplicated; I10 Essential (primary) hypertension; Z20.822 Contact with and (suspected) exposure to COVID-19; F32.9 Major depressive disorder, single episode, unspecified; F41.9 Anxiety disorder, unspecified; Z79.899 Other long term (current) drug therapy; Z87.891 Personal history of nicotine dependence
CPT/HCPCS: 36415; 74177; 76000; 76830; 80048; 80053; 81001; 83605; 83690; 85025; 85027; 85610; 85730; 86850; 86870; 86900; 86901; 86902; 86920; 87040; 87086; 87088; 87426; 93005; 99285; J7030; J7050; J7120; Q9967; A4216; C1769; C2617; J2405

== ENCOUNTER 2021-02-17 11:40 | Day surgery (SDC) | payer MEDICARE, MEDICAID, SELFPAY ==
[2021-01-17 14:34] VITALS: BMI 11.0
[2021-01-26 17:24] VITALS: BMI 11.6
[2021-02-17] VITALS (7 sets, daily range): BP systolic 122–157; BP diastolic 79–94; PULSE 69–80; RESP 16; TEMP 36.2–37.4; O2SAT 93–99; BMI 12.0
--- NOTE | 2021-02-17 13:48 | HP.PCM_ITS ---
Problem List (1) Ureteral stone with hydronephrosis Status: Acute Comment: Right side History of Present Illness Date of Admission: 02/17/21 Chief Complaint: Distal right ureteral calculi with obstruction status post stent The patient is a 65 year old female with right ureteral calculi status post stent she presents today for right ureteroscopy and laser of the stone and stent removal Past Medical History Past Medical History (Chronic Problems): Chronic Problems (Last Reviewed 01/26/21 @ 17:24 by Esthela Chin) Protein calorie malnutrition (Chronic) Depression with anxiety (Chronic) Vitamin deficiency (Chronic) Hypertension (Chronic) COPD (chronic obstructive pulmonary disease) (Chronic) Anemia (Chronic) Seasonal allergies (Chronic) Bronchiectasis (Chronic) Shortness of breath (Chronic) Toe pain, right (Chronic) Tinea unguium (Chronic) Malnutrition (Chronic) unintended weight loss of about 35 lbs Hyperglycemia (Chronic) Poor dentition (Chronic) Asthma (Chronic) Toe pain, left (Chronic) Medical History: Medical History (Last Reviewed 02/17/21 @ 13:[address] Ahmet Fortune MD) Vitamin deficiency (Chronic) E56.9 Pneumonia (Resolved) J18.9 Hypertension (Chronic) I10 COPD (chronic obstructive pulmonary disease) (Chronic) J44.9 Anemia (Chronic) D64.9 Seasonal allergies (Chronic) J30.2 Toe pain, right (Chronic) M79.674 Tinea unguium (Chronic) B35.1 Acute respiratory failure with hypoxia (Acute) J96.01 on chronic w/3L oxygen requirement Malnutrition (Chronic) E46 unintended weight loss of about 35 lbs Hyperglycemia (Chronic) R73.9 Poor dentition (Chronic) K08.9 Asthma (Chronic) J45.909 Hypoxemia (Acute) R09.02 Aspergillosis (Resolved) B44.9 History of Left aspergilloma Toe pain, left (Chronic) M79.675 Community acquired pneumonia (Acute) J18.9 Vitamin D deficiency E55.9 Allergies codeine Allergy (Verified 02/10/21 09:00) Made me pass out Penicillins [PCN] Allergy (Verified 02/10/21 09:00) Rash rash to legs Home Medications: Ambulatory Orders Medication Instructions Recorded albuterol sulfate 0.63 mg/3 mL 0.63 mg INHALATION Q6H PRN #90 ml 05/12/19 solution for nebulization mirtazapine 15 mg tablet 15 mg PO QHS #90 tab 09/30/20 budesonide 1 mg/2 mL suspension 1 mg INHALATION BID #60 ml 12/09/20 for nebulization Carvedilol [Coreg] 12.5 mg PO BID 01/16/21 Cholecalciferol (Vitamin D3) 50,000 unit PO WE 01/16/21 [D3-50] Ibuprofen 600 mg PO Q6H PRN PRN #20 tab 01/18/21 meclizine 12.5 mg tablet 12.5 mg PO BID PRN #60 tab 01/26/21 ondansetron HCl 4 mg tablet 4 mg PO Q8H PRN #60 tab 01/26/21 Surgical History: Surgical History (Last Reviewed 01/26/21 @ 17:24 by Esthela Chin) History of tonsillectomy Z90.89 Surgical History: no surgical history Psychiatric History: 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 Smoking Status: Former smoker Tobacco Use: Non-smoker - *Family History Maternal Family History: Family History (Last Reviewed 01/26/21 @ 17:24 by Esthela Chin) Mother Anemia Hypertension High cholesterol Osteoporosis CVA (cerebral vascular accident) Angina pectoris Asthma Anxiety Arthritis Scleroderma Depression Myocardial infarction Heart disease History Items: Asthma, Cancer, COPD, Heart Disease Paternal Family History: Family History (Last Reviewed 01/26/21 @ 17:24 by Esthela Chin) Mother Anemia Hypertension High cholesterol Osteoporosis CVA (cerebral vascular accident) Angina pectoris Asthma Anxiety Arthritis Scleroderma Depression Myocardial infarction Heart disease History Items: Pulmonary Disease Review of Systems Constitutional: Denies: Chills, Fever, Weight Change HEENT: Denies: Head Aches, Sinus Congestion, Sinus Drainage Cardiovascular: Denies: Chest Pain, Palpitations Respiratory: Denies: Cough, Shortness of breath at rest, Sputum production Gastrointestinal: Denies: Abdominal Pain, Nausea, Vomiting Genitourinary: Denies: Dysuria Musculoskeletal: Denies: Joint Pain, Joint Tenderness Skin: Denies: Rash, Wounds Neurological: Denies: Numbness, Tingling, Focal weakness Psychiatric: Denies: Anxiety, Depression, Homicidal Ideations, Suicidal Ideations Hematologic/ Lymphatic: Denies: Easy Bruising, Easy Bleeding VTE Information - Inpt Only VTE Present on Admission: No - Physical Exam Vitals/I&O's: Vital Signs Temp Pulse Resp BP Pulse Ox 98.1 F 69 16 147/94 H 99 02/17/21 12:38 02/17/21 12:38 02/17/21 12:38 02/17/21 12:38 02/17/21 12:38 Oxygen Delivery Method Room Air Weight: 33.6 kg Body Mass Index (BMI) 12.0 General: Alert, Oriented x3, Cooperative HEENT: Atraumatic, PERRLA, EOMI, Normocephalic Neck: Supple, No JVD, Negative Carotid Bruits Lungs: Clear to auscultation, Normal air movement Cardiovascular: Regular rate, No murmurs Abdomen: Bowel Sounds Present, Soft, Non Tender Extremities: No edema, Capillary Refill Less than 3 Seconds Skin: No rashes, No breakdown Musculoskeletal: No Tenderness to Palpation of Joints or Extremities Neurological: Cranial nerves II-XII grossly intact Psych/Mental Status: Normal Affect, Appropriate Microbiology Past 72 Hours 02/16/21 10:35 Interface Orders SARS-CoV-2 Antigen (Rapid) - Final Current Medications Cefazolin Sodium 2 gm/ Sodium (Chloride) 110 mls @ 150 mls/hr IV PREOP ONE Stop: 02/17/21 14:28 Assessment/Plan All Active Problems (Last Reviewed 01/26/21 @ 17:24 by Esthela Chin) Ureteral stone with hydronephrosis (Acute) Adnexal cyst (Acute) Acute pelvic pain, female (Acute) Leukocytosis (Acute) Urinary tract infection with hematuria (Acute) Pneumonia (Resolved) Acute respiratory failure with hypoxia (Acute) Hypoxemia (Acute) Aspergillosis (Resolved) Community acquired pneumonia (Acute) 65-year-old female with a large distal right ureteral calculi plan to proceed with right ureteroscopy and laser of stone. And removal of stent
--- NOTE | 2021-02-17 13:53 | DCINST_ITS ---
Discharge Diet: Light diet - advance as tolerated Discharge Activity: Return to Normal Activity Allergies/Adverse Reactions: Allergies codeine Allergy (Verified 02/10/21 09:00) Made me pass out Penicillins [PCN] Allergy (Verified 02/10/21 09:00) Rash rash to legs Medications to take at Discharge albuterol sulfate 0.63 mg/3 mL solution for nebulization 0.63 mg INHALATION Q6H PRN #90 ml 05/12/19 mirtazapine 15 mg tablet 15 mg PO QHS #90 tab 09/30/20 budesonide 1 mg/2 mL suspension for nebulization 1 mg INHALATION BID #60 ml 12/09/20 Carvedilol [Coreg] 12.5 mg PO BID 01/16/21 Cholecalciferol (Vitamin D3) [D3-50] 50,000 unit PO WE 01/16/21 Ibuprofen 600 mg PO Q6H PRN PRN #20 tab 01/18/21 meclizine 12.5 mg tablet 12.5 mg PO BID PRN #60 tab 01/26/21 ondansetron HCl 4 mg tablet 4 mg PO Q8H PRN #60 tab 01/26/21 Ciprofloxacin [Cipro] 500 mg PO BID #6 tab 02/17/21 The following prescriptions were given: Ciprofloxacin [Cipro] 500 mg PO BID #6 tab Transmission Status: Pending to [facility]/pharmacy #[id number] Primary Care Physician: Yaya Sanders MD [Primary Care Provider] - Test Results: Test results from this visit will be discussed in further detail at your follow- up appointment, if applicable. Please Follow Up With: Ahmet Fortune MD When: in 2 weeks, please call to make an appointment.
[2021-02-17] MEDS: Cefazolin 2 GM in 0.9% Normal Saline 100 ML IV (13:55)
[2021-02-17] MEDS: Lactated Ringers 1,000 ML 75 ML IV (13:55)
--- NOTE | 2021-02-17 14:23 | PCM.OPRPT ---
Problem List (1) Ureteral stone with hydronephrosis Status: Acute Comment: Right side Report of Operation Date of Procedure: 02/17/21 Pre-Operative Diagnosis: right ureteral calculi s/p stent Post-Operative Diagnosis: same Surgery/Procedure Performed:: right ureterosopy laser stone, dilaiton of ureter, stent removal, retrograde Description of Surgical Findings:: This is a patient who presents to the hospital for treatment for an obstructing distal ureter calculi. I discussed with the patient how the surgery would be performed and we reviewed the risks and benefits of the surgery. The risk and benefits include the risk of failure to remove the stone completely and that the patient may need multiple procedures. We discussed the risk of an infection, the risk of bleeding. We discussed the very rare risk of serious complicated injury to the ureter. The patient understands that if the stone is not able to be removed safely that we may abort the procedure and place a stent. After full discussion and all questions address with the patient the consent form was signed the side was marked appropriately and the patient was taken back to the operating room for the procedure. The patient was taken back to the operating room. After induction of anesthesia by the anesthesiology team the patient was placed in dorsolithotomy position. The genitals were prepped and draped in usual sterile fashion. I went into the bladder with a 21 Occitan rigid cystourethroscope through the urethra. Upon entering the bladder I inspected the trigone the left and right ureteral orifice and the bladder itself. I then removed the right stent and cannulated the right ureteral orifice and advanced a 0.038 Glidewire up into the kidney. Then over the Glidewire I advanced a 5 Fr Ureteral catheter and performed a retrograde pyelogram with about 10cc of contrast, to delineate the anatomy and identify the stone location. Then a ureteral balloon dilator was advanced over the wire and the distal ureter was balloon dilated with a 12 Fr x 5cm balloon dilator. After 3 minutes of dilating the ureter the balloon was backloaded off the 0.038 glidewire then the safety wire was left in place. I then placed a second 0.038 Guidewire as a working wire and over the working 0.038 guidewire I went in with a Flexible 7.9fr ureteroscope. I was able to go inside with the 7.9Fr flexible utereroscope and I pulled out the working guidewire and then through the 7.9 fr flexible ureteroscope I ascended up the ureter with direct visualization until the stone was located, then I engaged the stone with laser lithotripsy using a 270miron laser fiber with energy setting of 6 Hertz and 0.6 J until the stone was lasered into tiny little pieces that should pass on their own. After successful chapito lithotripsy of the stone and stone fragements, a retrograde pyelogram was performed with 10cc of contrast and no extravasation of contrast or perforation was identified in the ureter. I then backed out of the ureter, I then drained the patient's bladder and the cystoscope was removed and the patient was taken back to the recovery room in good position. The patient was given discharge instructions to call the office for instructions on when to come to the office for a check up, no stent was left. Type of Anesthesia:: General Drains: none - Admit VTE Documentation VTE Present on Admission: No VTE Mechan Device Prophylaxis: SCD's
== END 2021-02-17 17:00 | disposition home or self-care (01) ==
LOC: SDC 11:41 → AC 11:41
PROVIDERS: PCP Internal Medicine; Referring Provider Urology; Visit Provider Urology
PROC: 0TJ98ZZ Inspection of Ureter, Via Natural or Artificial Opening Endoscopic (ICD-10-PCS; CPT 52352; principal; 2021-02-17 13:45)
DX: N13.6 Pyonephrosis (principal); Z20.822 Contact with and (suspected) exposure to COVID-19; I10 Essential (primary) hypertension; J47.9 Bronchiectasis, uncomplicated; E78.00 Pure hypercholesterolemia, unspecified; Z78.0 Asymptomatic menopausal state; Z87.891 Personal history of nicotine dependence
CPT/HCPCS: 00918; 52353; 87426; C9803; J7120; C1769; J2405

== ENCOUNTER → 2021-05-16 09:11 | Outpatient (CLI) | payer MEDICARE, MEDICAID, SELFPAY ==
[2021-02-17 12:38] VITALS: BMI 12.0
[2021-05-16 11:23] LABS: Anion Gap 4 (5-15); BUN 20 mg/dL (7-18); BUN/Creat Ratio 27.7 RATIO (10-20); Calcium,Total 8.8 mg/dL (8.5-10.1); Chloride 104 mmol/L (98-107); Creatinine, Serum 0.72 mg/dL (0.55-1.02); EST Glomerular Filtration Rate 85 mL/min (>60); Est Glom Filt Rate - Afr Amer 103 mL/min (>60); Glucose 109 mg/dL (74-106); Potassium 4.1 mmol/L (3.5-5.1); Sodium Level 137 mmol/L (136-145)
== END ==
PROVIDERS: PCP Internal Medicine; Visit Provider Urology
DX: N20.1 Calculus of ureter (principal); R31.0 Gross hematuria
CPT/HCPCS: 36415; 80048; 87077; 87086; 87088; 87186

== ENCOUNTER → 2021-06-29 14:03 | Outpatient (CLI) | payer MEDICARE, MEDICAID, SELFPAY ==
[2021-06-15 16:44] VITALS: BMI 12.0
--- NOTE | 2021-06-29 14:22 | BD_ITS ---
STUDY: DUAL ENERGY X-RAY ABSORPTIOMETRY / DXA REASON FOR EXAM: Female, 65 years old. Osteoporosis TECHNIQUE: Bone Mineral Density (BMD) measurements of lumbar spine and bilateral hips were obtained. COMPARISON: Comparison is made with prior examination dated 04/02/2019. FINDINGS: Lumbar Spine (L1-L4): g/cm2 (0.694) / T-score (-3.2) / Z-score (-1.2) Findings are suggestive of osteoporosis with a high fracture risk. Left Femur Total: g/cm2 (0.329) / T-score (-5.0) / Z-score (-3.6) Left Femoral Neck: g/cm2 (0.348) / T-score (-4.5) / Z-score (-2.8) Right Femur Total: g/cm2 (0.342) / T-score (-4.9) / Z-score (-3.5) Right Femoral Neck: g/cm2 (0.389) / T-score (-4.1) / Z-score (-2.5) The T-Scores on the most recent prior examination were: Lumbar Spine (L1-L4): There has been worsening of bone density since the previous examination. Left Femur Total: which represents a worsening of 12.7%. Right Femur Total: which represents a worsening of 0.9%. BD/Dexa Bone Density Study IMPRESSION: The patient is considered osteoporotic as outlined below according to World Geo Organization (WHO) criteria with a high fracture risk. There has been worsening of bone density since the previous examination. Reference Information: The T-score is the number of standard deviations above or below the standard which is normal for young adults at their peak bone mineral density. The World Health Organization (WHO) interprets the T-scores as follows: Above -1 Normal bone density Between -1 and -2.5 Osteopenia Equal to / or below -2.5 Osteoporosis As a practical clinical guideline, osteopenia may be graded as follows: Mild -1 through -1.5 Moderate -1.6 through -2.0 Severe -2.1 through -2.4 The Z-score is the number of standard deviations above or below age-matched controls. A Z-score of less than -1.5 would be considered abnormal. References: 1. NIH Osteoporosis and Related Bone Diseases www osteo.org 2. International Society for Clinical Densitometry www iscd.org 3. National Osteoporosis Foundation www nof.org Electronically Signed: Isaac Stuart MD at 8:34 EDT , Service support ,
== END ==
PROVIDERS: PCP Internal Medicine; Referring Provider Internal Medicine; Visit Provider Internal Medicine
DX: M81.0 Age-related osteoporosis without current pathological fracture (principal)
CPT/HCPCS: 77080

== ENCOUNTER → 2022-06-20 | Outpatient (CLI) | payer MEDICARE, MEDICAID, SELFPAY ==
[2022-06-20 15:09] LABS: Absolute Lymphocyte Count 1.32 X10^3/uL (0.83-4.51); Absolute Neutrophil Count 4.5 X10^3/uL (2.0-7.7); Basophil# 0.07 X10^3/uL; Eosinophil# 0.38 X10^3/uL; Eosinophils% 5.5 % (0-5); Hematocrit 43.1 % (37-47); Hemoglobin 13.8 g/dL (12.0-15.0); Lymphocyte # 1.32 X10^3/ul (0.83-4.51); Lymphocyte % 19.2 % (19-41); Mean Corpuscular Hgb 30.2 pg (27.0-32.0); Mean Corpuscular Volume 94.3 fL (81-99); Mean Platelet Vol. 10.7 fl (6.2-12.0); Monocyte# 0.59 X10^3/uL; Monocyte% 8.6 % (0-10); NRBC Flagged by Analyzer 0 % (0-5); Neutrophil % 65.3 % (47-70); Platelet Count 207 K/mm3 (150-450); RBC Distribution Width CV 13.1 % (11.6-14.6); RBC Distribution Width SD 45.2 fl (35.1-43.9); Red Blood Count 4.57 M/mm3 (4.2-5.4); White Blood Count 6.9 K/mm3 (4.4-11.0)
[2022-06-20 15:33] LABS: Vitamin B12 595 pg/mL (211-911); Vitamin D,25 Hydroxy 24.7 ng/mL
[2022-06-20 15:39] LABS: ALB/GLOB Ratio 0.8 RATIO (0.9-2.4); AST(SGOT) 13 U/L (15-37); Alanine Aminotransfer ALT/SGPT 19 U/L (13-56); Albumin, Serum 3.5 g/dL (3.2-5.0); Alkaline Phosphatase 72 U/L (45-117); Anion Gap 4 (5-15); BUN 14 mg/dL (7-18); BUN/Creat Ratio 16.7 RATIO (10-20); Calcium,Total 8.8 mg/dL (8.5-10.1); Chloride 104 mmol/L (98-107); Cholesterol 179 mg/dL (200); Creatinine, Serum 0.84 mg/dL (0.55-1.02); EST Glomerular Filtration Rate 72 mL/min (>60); Est Glom Filt Rate - Afr Amer 87 mL/min (>60); Globulin 4.3 g/dL (2.2-4.2); Glucose 177 mg/dL (74-106); High Density Lipoprotein 67 mg/dL; Potassium 3.9 mmol/L (3.5-5.1); Protein, Total 7.8 g/dL (6.4-8.2); Sodium Level 139 mmol/L (136-145); Triglycerides 78 mg/dL; Very Low Density Lipoprotein 16 mg/dL (5-40)
[2022-06-21 12:54] LABS: Hemoglobin A1c 4.9 % (3.8-5.6)
== END | disposition home or self-care (01) ==
LOC: BIMLAB 13:36
PROVIDERS: PCP Internal Medicine; Referring Provider Internal Medicine; Visit Provider Internal Medicine
DX: I10 Essential (primary) hypertension (principal); E46 Unspecified protein-calorie malnutrition; M81.0 Age-related osteoporosis without current pathological fracture; R73.9 Hyperglycemia, unspecified
CPT/HCPCS: 36415; 80053; 80061; 82306; 82607; 83036; 85025

== ENCOUNTER 2023-04-29 01:30 | Inpatient (IN) | payer MEDICARE, MEDICAID, SELFPAY ==
[2023-04-29] VITALS (39 sets, daily range): BP systolic 100–167; BP diastolic 67–120; PULSE 63–111; RESP 13–35; TEMP 36.1–37.3; O2SAT 40–97; BMI 11.2; BMI 10.5
--- NOTE | 2023-04-29 01:37 | EX.ED.DYSGE1 ---
HPI History of Present Illness Chief Complaint: Confusion Informant: patient and EMS Narrative Narrative: Brought in by EMS from home. Apparently son checked on patient this evening they heard her inside, the broke down the door she is unable to get out of bed. Reported son was on a trip for 2 days checked on her. Apparently she has been in bed. There is incontinence of urine. She history of COPD on chronic 2 L oxygen however EMS arrival no she is on 1 L however there is extensive tubing. She is noted to be 56% on room air she is placed on a nonrebreather and brought in. Reported increasing confusion. She lives alone. She states she does not walk with any assistance. Denies chest abdominal pain. Denies vomiting or diarrhea. Denies bloody or black stools. No respiratory distress on arrival on a nonrebreather. Son is currently not present. Transmitted EMS EKG sinus tachycardia 121 right bundle branch block artifact at baseline. [facility] Medical History Acute respiratory failure with hypoxia Anemia Aspergillosis Asthma Community acquired pneumonia COPD (chronic obstructive pulmonary disease) Dermatitis Flu vaccine need Head lice Health care maintenance Hyperglycemia Hypertension Hypoxemia Low body mass index (BMI) Malnutrition Osteoporosis Pneumonia Poor dentition Seasonal allergies Tinea unguium Toe pain, left Toe pain, right Vitamin D deficiency Vitamin deficiency Home Medications albuterol sulfate 0.63 mg/3 mL solution for nebulization 0.63 mg (3 mL) inhalation Q6H PRN shortness of breath or wheezing #90 mL 05/12/19 [Rx Last Taken 01/12/21] budesonide 1 mg/2 mL suspension for nebulization 1 mg (2 mL) inhalation BID #60 mL 12/09/20 [Rx Last Taken 01/15/21] ondansetron HCl 4 mg tablet (Zofran) 4 mg PO Q8H PRN nausea and vomiting #60 tabs 01/26/21 [Rx Last Taken Unknown] meclizine 12.5 mg tablet 12.5 mg PO BID PRN dizziness #60 tabs 06/07/22 [Rx Last Taken Unknown] mirtazapine 15 mg tablet 15 mg PO QHS sleep/ Appetite #90 tabs 07/24/22 [Rx Last Taken Unknown] permethrin 1 % topical liquid (Lice Killing (permethrin)) 60 ml topical ONCE #59 mL 12/04/22 [Rx Last Taken Unknown] carvedilol 12.5 mg tablet 12.5 mg PO BID 3 months #180 tabs 02/18/23 [Rx Last Taken Unknown] ergocalciferol (vitamin D2) 1,250 mcg (50,000 unit) capsule See Rx Instructions .Route .COMPLEX #12 caps 03/06/23 [Rx Last Taken Unknown] Allergy/AdvReac Type Severity Reaction Status Date / Time codeine Allergy Made me Verified 12/04/22 15:25 pass out Penicillins [PCN] Allergy Rash Verified 12/04/22 15:25 Family History Mother Anemia Angina pectoris Asthma Anxiety Arthritis Scleroderma Depression Myocardial infarction Heart disease Hypertension High cholesterol Osteoporosis CVA (cerebral vascular accident) Surgical History History of tonsillectomy Social History Smoking Status: Former smoker quit date: 11/11/84 alcohol intake: current alcohol intake frequency: 3 or more drinks per day substance use type: does not use what type of physical activity do you participate in: none ROS ROS ED Constitutional Constitutional ED: Denies chills, fever(s) or sweats Eyes Eyes: Denies change in vision ENT ENT ED: Denies dysphagia or sore throat Cardiovascular Cardiovascular: Denies chest pain, leg edema, palpitations or racing heartbeat Respiratory/Chest Respiratory/Chest: Denies cough, dyspnea or dyspnea on exertion Gastrointestinal Gastrointestinal: Denies abdominal pain, diarrhea, nausea or vomiting Genitourinary Genitourinary ED: Denies dysuria, hematuria or urinary frequency Musculoskeletal Musculoskeletal: Denies back pain, extremity pain or neck pain Integumentary Denies rash or wounds Neurologic Neurologic: Denies headache(s), paresthesias or weakness EXAM Physical Exam Const Vital Signs: 04/29/23 01:31 04/29/23 01:41 04/29/23 02:59 Temperature 98.4 F Temperature Source Oral Pulse Rate 111 H 97 Respiratory Rate 35 H 26 H Respiratory Pattern Blood Pressure 151/92 H 147/82 H Blood Pressure Mean 111 103 Pulse Ox 91 92 Oxygen Delivery Method Nasal Cannula Nasal Cannula Bi-pap Oxygen Flow Rate (L/min) 6 Fraction of Inspired Oxygen (FIO2) 6 40 04/29/23 03:17 04/29/23 02:38 04/29/23 03:23 Temperature 97 F L Temperature Source Temporal Pulse Rate 100 100 99 Respiratory Rate 27 H 32 H 18 Respiratory Pattern Tachypnea Normal Blood Pressure 111/94 H Blood Pressure Mean 99 Pulse Ox 40 93 93 Oxygen Delivery Method Bi-pap Oxygen Flow Rate (L/min) Fraction of Inspired Oxygen (FIO2) 40 40 Positive cachectic Constitutional Narrative: Nonrebreather no respiratory distress General Appearance ED: cachectic, NAD and pallor Nutritional Appearance: cachectic HEENT Reports moist mucous membranes normocephalic and atraumatic Eyes PERRL and EOMs intact bilaterally General Eye ED: Yes pale conjunctiva Neck no lymphadenopathy and supple General: Negative for tenderness Chest Wall Chest: Negative for tenderness Resp normal respiratory effort and normal air movement Effort and Inspection: symmetric chest movement; Negative for respiratory distress Cardio regular rhythm and no murmurs Rate: tachycardic Peripheral Pulses: pulses 2+ throughout GI normal to inspection, nondistended, normoactive bowel sounds and non-tender Palpation: Negative for guarding or rebound tenderness present Back/Spine no CVA tenderness and no thoracic nor lumbar tenderness Extremity normal to inspection General Extremety ED: Negative for edema or tenderness General Extremity: Negative for edema Neuro CN's II-XII intact bilaterally and no sensory deficits noted Neuro Narrative: Alert to person and place, did not answer when asked about year. Sensorium / Orientation: awake and alert Skin no rashes or lesions noted and no wounds General Skin Exam: pallor MDM MDM MDM Narrative Medical decision making narrative: Interventions / MDM: Differential diagnosis: Diagnosis considered but do not suspect: N/A My EKG interpretation: At 0210: Sinus rate of 102, no ST changes. Right bundle branch block. Imaging independently reviewed and interpreted by myself: CT brain: No acute process also read by radiology. 1 view chest x-ray: Hyperinflated lungs, no pneumothorax. External documents reviewed: N/A Test considered but not ordered:N/A ED course: Patient arrival afebrile respiratory rate was in the 30s, sepsis labs ordered. CT brain due to confusion. Will give IV fluids due to tachycardia. Patient weaned down to nasal cannula 6 L. Re-evaluation: 0200: Sons are present, confirm last seen her 2 days ago 1 son does live with her. He went on a short vacation. They do confirm she is more confused. She she supposed to wear 2 L oxygen however the lines are long. States she does not move around much at home. Laboratory studies had a hemoglobin of 9 down from 13.8, stool studies were sent, digital rectal exam was brown stool was area. 0215: Reported CO2 from her CMP greater than 45. Will order an ABG. Discussing with family, does not wear CPAP at night or has worn 1 in the past. They did report she had some short fast breathing bouts. Concerns for hypercapnia. He was weaned down to 3 L nasal cannula. 0230: Hemoccult positive. Protonix given. Reported from respiratory therapy large hematoma with 1 stick. Will send for VBG. 0300: pH 7.25, PCO2 118 on VBG. BiPAP was ordered and patient placed on this. 0330: Patient tolerated BiPAP with no difficulties. I discussed with hospitalist Dr. Savage will evaluate patient in the ED. Patient be placed in the ICU for further management. Family is updated Disposition discussed with patient/family/significant other: Patient and family Case discussed with consulting clinician: Hospitalist, Dr. Savage. Lab Data Attestation: I reviewed the patient's lab results. Labs: Laboratory Results - last 24 hr 04/29/23 04/29/23 04/29/23 01:20 01:20 01:20 WBC 8.7 RBC 4.26 Hgb 9.0 L Hct 36.6 L MCV 85.9 MCH 21.1 L MCHC 24.6 L RDW Std Deviation 58.3 H RDW Coeff of Marie 18.6 H Plt Count 138 L MPV 10.1 Immature Gran % (Auto) 4.400 H Neut % (Auto) 80.0 H Lymph % (Auto) 6.4 L [place] % (Auto) 8.3 Eos % (Auto) 0.0 Baso % (Auto) 0.9 Absolute Neuts (auto) 7.0 Absolute Lymphs (auto) 0.56 L Nucleated RBC % 0.7 Platelet Estimate SLT DEC Polychromasia RARE Hypochromasia 1+ Anisocytosis 2+ PT 13.3 INR 1.0 APTT 24.9 Sodium 142 Potassium 4.6 Chloride 91 L Carbon Dioxide > 45.0 H* Anion Gap TNP BUN 39 H Creatinine 0.63 Estim Creat Clear Calc 26.74 Est GFR (MDRD) Af Amer 120 Est GFR (MDRD) Non-Af 99 BUN/Creatinine Ratio 61.8 H Glucose 149 H Lactic Acid Calcium 9.1 Total Bilirubin 0.70 AST 13 L ALT 15 Alkaline Phosphatase 44 L Total Creatine Kinase 28 Total Protein 7.7 Albumin 3.8 Globulin 3.9 Albumin/Globulin Ratio 1.0 Urine Color Urine Clarity Urine pH Ur Specific [place] Urine Protein Urine Glucose (UA) Urine Ketones Urine Occult Blood Urine Nitrite Urine Bilirubin Urine Urobilinogen Ur Leukocyte Esterase Urine RBC Urine WBC Ur Squamous Epith Cells Amorphous Sediment Urine Bacteria Urine Mucus 04/29/23 04/29/23 01:45 01:51 WBC RBC Hgb Hct MCV MCH MCHC RDW Std Deviation RDW Coeff of Marie Plt Count MPV Immature Gran % (Auto) Neut % (Auto) Lymph % (Auto) [place] % (Auto) Eos % (Auto) Baso % (Auto) Absolute Neuts (auto) Absolute Lymphs (auto) Nucleated RBC % Platelet Estimate Polychromasia Hypochromasia Anisocytosis PT INR APTT Sodium Potassium Chloride Carbon Dioxide Anion Gap BUN Creatinine Estim Creat Clear Calc Est GFR (MDRD) Af Amer Est GFR (MDRD) Non-Af BUN/Creatinine Ratio Glucose Lactic Acid 1.7 Calcium Total Bilirubin AST ALT Alkaline Phosphatase Total Creatine Kinase Total Protein Albumin Globulin Albumin/Globulin Ratio Urine Color Yellow Urine Clarity Clear Urine pH 5.0 Ur Specific [place] 1.025 Urine Protein 100 H Urine Glucose (UA) Normal Urine Ketones 5 H Urine Occult Blood 50 H Urine Nitrite Negative Urine Bilirubin Negative Urine Urobilinogen Normal Ur Leukocyte Esterase Negative Urine RBC 5-10 SEEN Urine WBC 0 SEEN Ur Squamous Epith Cells 0 SEEN Amorphous Sediment 1+ Urine Bacteria 2+ Urine Mucus 0 SEEN ABG Data ABG results: ABG 04/29/23 02:46 Specimen Type UBALDO VBG pH 7.25 L VBG pO2 46 H VBG HCO3 52 H VBG Total CO2 > 50 H VBG O2 Sat (Calc) 69 VBG Base Excess 25 H POC Mix VBG pCO2 Pt Tmp 118.7 H* O2 Delivery Device Nasal Can Liter Flow 3.0 Crit Call To/Read Back Yes Blood Gas Notified Whom ED Blood Gas Notified Time 0246 Radiography Diagnostic Testing: Clinical Impression(s) from Imaging Studies Brain CT 04/29/23 01:38 IMPRESSION: Chronic involutional and white matter changes. No evidence of acute intracranial abnormality. Electronically Signed: Mello Stahl MD at 3:42 EDT , Critical Care Time Critical Care Time: Yes Critical care time (excluding procedures): 30-74 minutes, Discussing w/Patient &/or Family/Pupil Personnel Worker, Discussing w/Consultants, Arranging Admission or Transfer, Performing Direct Patient Care at Bedside and - (35 minutes) Discharge Plan Dx/Rx/DC Orders Clinical Impression: Acute on chronic respiratory failure with hypoxia and hypercapnia, Anemia, COPD (chronic obstructive pulmonary disease), Acute encephalopathy, Guaiac positive stools Disposition Disposition: Acute Care Hospital [facility] Discharge Date/Time: 04/29/23 03:50
--- NOTE | 2023-04-29 01:38 | CT_ITS ---
INDICATION: Confusion, mental status EXAMINATION: CT Head or Brain W/O Contrast Injection TECHNIQUE: Multiple axial images were obtained of the head without intravenous contrast. A radiation dose optimization technique was used for this scan. IV Contrast dosage and agent: None. COMPARISON: None FINDINGS: BRAIN PARENCHYMA: No intra- or extra-axial hemorrhage. No evidence of acute major territorial infarct. No intracranial mass or mass effect. Mild bilateral deep cerebral white matter lucencies are present. Mild cerebral involutional changes. CSF SPACES: No hydrocephalus. Basal cisterns are patent. Intracranial atherosclerotic calcifications. CALVARIUM, SKULL BASE, PARANASAL SINUSES AND MASTOID AIR CELLS: Calvarium is intact. No acute findings within imaged paranasal sinuses. Mastoid air cells are well-pneumatized. ORBITS: No acute findings. CT/Brain/Head without Contrast IMPRESSION: Chronic involutional and white matter changes. No evidence of acute intracranial abnormality. Electronically Signed: Mello Stahl MD at 3:42 EDT ,
[2023-04-29 01:45] LABS: Absolute Lymphocyte Count 0.56 X10^3/uL (0.83-4.51); Basophil# 0.08 X10^3/uL; Basophil% 0.9 % (0-1); Hematocrit 36.6 % (37-47); Lymphocyte # 0.56 X10^3/ul (0.83-4.51); Lymphocyte % 6.4 % (19-41); Mean Corp Hgb Conc 24.6 g/dL (32-36); Mean Corpuscular Hgb 21.1 pg (27.0-32.0); Mean Corpuscular Volume 85.9 fL (81-99); Mean Platelet Vol. 10.1 fl (6.2-12.0); Monocyte# 0.72 X10^3/uL; Monocyte% 8.3 % (0-10); NRBC Flagged by Analyzer 0.7 % (0-5); Neutrophil # 6.98 X10^3/uL (2.7-7.7); POSITIVE DIFFERENTIAL YES; Platelet Count 138 K/mm3 (150-450); RBC Distribution Width CV 18.6 % (11.6-14.6); RBC Distribution Width SD 58.3 fl (35.1-43.9); Red Blood Count 4.26 M/mm3 (4.2-5.4); White Blood Count 8.7 K/mm3 (4.4-11.0)
[2023-04-29] MEDS: 0.9% Normal Saline 1,000 ML 999 ML IV (01:46)
[2023-04-29 01:53] LABS: Differential Indicated SCAN CRITERIA MET
[2023-04-29 01:57] LABS: Mucous, Urine 0 SEEN /hpf (<or=2+); Squamous Epithelial Cells - UA 0 SEEN /hpf (5-10); White Blood Cells 0 SEEN /hpf (0-5)
[2023-04-29 02:01] LABS: Prothrombin Time (Protime)PT. 13.3 SECONDS (11.7-14.9)
[2023-04-29 02:02] LABS: Partial Thromboplast Time 24.9 Seconds (24.1-36.2)
[2023-04-29 02:02] LABS: Color, Urine Yellow (Yellow); Glucose, Dipstick Normal (Normal); Ketone-Dipstick 5 mg/dl (Negative); Leukocyte Esterase-Dipstick Negative /ul (Negative); Nitrite-Dipstick Negative (Negative); Occult Blood-Urine 50 /ul (Negative); Protein-Dipstick 100 mg/dl (Negative); Specific Gravity, Urine 1.025 (1.002-1.030); Urine Bilirubin Dipstick Negative (Negative); Urine Clarity Clear (Clear); Urine Urobilinogen Normal (Normal)
[2023-04-29 02:14] LABS: AST(SGOT) 13 U/L (15-37); Alanine Aminotransfer ALT/SGPT 15 U/L (13-56); Albumin, Serum 3.8 g/dL (3.2-5.0); Alkaline Phosphatase 44 U/L (45-117); BUN 39 mg/dL (7-18); BUN/Creat Ratio 61.8 RATIO (10-20); CPK Total, Creatine Kinase 28 U/L (26-192); Calcium,Total 9.1 mg/dL (8.5-10.1); Carbon Dioxide > 45.0 mmol/L (21.0-32.0); Chloride 91 mmol/L (98-107); Creatinine, Serum 0.63 mg/dL (0.55-1.02); EST Glomerular Filtration Rate 99 mL/min (>60); Est Glom Filt Rate - Afr Amer 120 mL/min (>60); Estimated Creatinine Clearance 26.74 ml/min; Globulin 3.9 g/dL (2.2-4.2); Glucose 149 mg/dL (74-106); Potassium 4.6 mmol/L (3.5-5.1); Protein, Total 7.7 g/dL (6.4-8.2); Sodium Level 142 mmol/L (136-145)
[2023-04-29 02:15] LABS: Amorphous Sediment 1+; Bacteria 2+ /hpf (None Seen); Red Blood Cells-Urine 5-10 SEEN /hpf (0-5)
[2023-04-29 02:17] LABS: Anisocytosis 2+; Hypochromasia 1+; Platelet Estimate SLT DEC (ADEQ); Polychromasia RARE
[2023-04-29 02:53] LABS: Lactic Acid 1.7 mmol/L (0.4-1.9)
--- NOTE | 2023-04-29 03:10 | RAD_ITS ---
INDICATION: dyspnea EXAMINATION/TECHNIQUE: X-RAY - XR Chest 1 View COMPARISON: Chest x-ray from 10/08/2017 FINDINGS: LINES/DEVICES: None. LUNGS: Hyperexpanded lungs and biapical scarring again noted. Mild bibasilar linear opacities. Slightly elevated right hemidiaphragm. No sizable pleural effusion. No pneumothorax detected. MEDIASTINUM AND CARDIOVASCULAR STRUCTURES: Heart size within normal limits for imaging technique. Mediastinal contours unremarkable. BONES AND SOFT TISSUES: Skeletal degenerative changes. RAD/Chest 1 View (Portable) IMPRESSION: COPD and lung scarring with probable mild superimposed basilar atelectasis. Electronically Signed: Mello Stahl MD at 4:03 EDT ,
--- NOTE | 2023-04-29 03:30 | HP.PCM.HOS_ITS ---
HPI - General General Date of Admission: 04/29/23 Date of Service: 04/29/23 Chief Complaint: Altered level of consciousness, generalized weakness, confusion HPI Narrative TIFFANY PETTIT, is a 67 F who presents to the emergency room at [facility] after being brought in by squad after she was found at home too weak to get out of bed and was noted to be confused. She was found by her son who was unable to get into her room, the door had to be broken down and the patient was found in bed confused and unable to get up without assistance. Patient has a history of chronic obstructive pulmonary disease and is on chronic oxygen at home. Evaluation in the emergency room included a chest x-ray which showed no active infiltrates, CBC showed a normal white blood cell count, hemoglobin was 9, chemistry panel showed an elevated bicarb above 45, glucose was 149, and patient's urinalysis showed +2 bacteria, 5-10 RBCs, 0 WBCs. Patient had a blood gas performed in the emergency room, respiratory therapy was unable to get arterial blood gases but venous blood gases showed a pH of 7.25, PCO2 of 118 and PO2 of 46. On examination, this examiner noted the patient to be alert on nasal cannula oxygen, she had been on BiPAP prior to going to CAT scan for imaging studies, she was able to tell me she was in the hospital and what year it was. Patient was not able to give me an answer as to what her desires would be regarding mechanical ventilation and resuscitation efforts. Patient will be admitted to ICU for acute encephalopathy secondary to combined acute on chronic respiratory failure and acute on chronic combined respiratory failure. [facility] Medical History Acute respiratory failure with hypoxia Anemia Aspergillosis Asthma Community acquired pneumonia COPD (chronic obstructive pulmonary disease) Dermatitis Flu vaccine need Head lice Health care maintenance Hyperglycemia Hypertension Hypoxemia Low body mass index (BMI) Malnutrition Osteoporosis Pneumonia Poor dentition Seasonal allergies Tinea unguium Toe pain, left Toe pain, right Vitamin D deficiency Vitamin deficiency Home Medications albuterol sulfate 0.63 mg/3 mL solution for nebulization 0.63 mg (3 mL) inhalation Q6H PRN shortness of breath or wheezing #90 mL 05/12/19 [Rx Last Taken 01/12/21] budesonide 1 mg/2 mL suspension for nebulization 1 mg (2 mL) inhalation BID #60 mL 01/29/21 [Rx Last Taken 01/15/21] ondansetron HCl 4 mg tablet (Zofran) 4 mg PO Q8H PRN nausea and vomiting #60 tabs 01/26/21 [Rx Last Taken Unknown] meclizine 12.5 mg tablet 12.5 mg PO BID PRN dizziness #60 tabs 06/07/22 [Rx Last Taken Unknown] mirtazapine 15 mg tablet 15 mg PO QHS sleep/ Appetite #90 tabs 07/24/22 [Rx Last Taken Unknown] permethrin 1 % topical liquid (Lice Killing (permethrin)) 60 ml topical ONCE #59 mL 12/04/22 [Rx Last Taken Unknown] carvedilol 12.5 mg tablet 12.5 mg PO BID 3 months #180 tabs 02/18/23 [Rx Last Taken Unknown] ergocalciferol (vitamin D2) 1,250 mcg (50,000 unit) capsule See Rx Instructions .Route .COMPLEX #12 caps 03/06/23 [Rx Last Taken Unknown] Allergy/AdvReac Type Severity Reaction Status Date / Time codeine Allergy Made me Verified 12/04/22 15:25 pass out Penicillins [PCN] Allergy Rash Verified 12/04/22 15:25 Family History Mother Anemia Angina pectoris Asthma Anxiety Arthritis Scleroderma Depression Myocardial infarction Heart disease Hypertension High cholesterol Osteoporosis CVA (cerebral vascular accident) Surgical History History of tonsillectomy Social History Smoking Status: Former smoker quit date: 11/11/84 alcohol intake: current alcohol intake frequency: 3 or more drinks per day substance use type: does not use what type of physical activity do you participate in: none ROS ROS Narrative Review of systems was not felt to be reliable due to the patient's hypercapnia Vital Signs Vital Signs Vital Signs: 04/29/23 01:31 04/29/23 01:41 04/29/23 02:59 Temperature 98.4 F Temperature Source Oral Pulse Rate 111 H 97 Respiratory Rate 35 H 26 H Respiratory Pattern Blood Pressure 151/92 H 147/82 H Blood Pressure Mean 111 103 Pulse Ox 91 92 Oxygen Delivery Method Nasal Cannula Nasal Cannula Bi-pap Oxygen Flow Rate (L/min) 6 Fraction of Inspired Oxygen (FIO2) 6 40 04/29/23 03:17 04/29/23 02:38 04/29/23 03:23 Temperature 97 F L Temperature Source Temporal Pulse Rate 100 100 99 Respiratory Rate 27 H 32 H 18 Respiratory Pattern Tachypnea Normal Blood Pressure 111/94 H Blood Pressure Mean 99 Pulse Ox 40 93 93 Oxygen Delivery Method Bi-pap Oxygen Flow Rate (L/min) Fraction of Inspired Oxygen (FIO2) 40 40 Weight Weight: 31.9 kg Body Mass Index (BMI) 11.2 Physical Exam Const alert, oriented x3 and no apparent distress Constitutional Narrative: Patient appears severely cachectic and older than her stated age, she appears frail and unwell, she is oriented as to person place and year General Appearance: cooperative, well kempt and well developed Orientation / Consciousness: awake, oriented to person and oriented to place HEENT normocephalic, head/scalp atraumatic, hearing grossly normal bilaterally and moist oral mucous membranes Eyes PERRL, EOMs intact bilaterally and conjunctivae normal Neck supple, no JVD, thyroid normal and no carotid bruits General: trachea midline Resp normal respiratory effort, no retractions and no use of accessory muscles Resp Narrative: Breath sounds are distant bilaterally Auscultation: Negative for rales, rhonchi or wheezes Cardio regular rate, regular rhythm, S1 normal heart sound, S2 normal heart sound, no murmurs, no rub and no gallops GI normal to inspection, nondistended, normoactive bowel sounds, soft to palpation, non-tender and non-distended Extremity no clubbing, cyanosis or edema Skin no rashes or lesions noted General Skin Exam: no breakdown Neuro oriented x3, CN's II-XII intact bilaterally, moves all extremities, no focal motor deficits and no sensory deficits noted Sensorium / Orientation: awake and alert Speech: speech normal Psych Psych Narrative: Patient is a poor informant, she is oriented as to person place and year Results Lab / Micro Data Result Diagrams: 04/29/23 01:20 04/29/23 01:20 Labs: Laboratory Results - last 24 hr 04/29/23 01:20: WBC 8.7, RBC 4.26, Hgb 9.0 L, Hct 36.6 L, MCV 85.9, MCH 21.1 L, MCHC 24.6 L, RDW Std Deviation 58.3 H, RDW Coeff of Marie 18.6 H, Plt Count 138 L, MPV 10.1, Immature Gran % (Auto) 4.400 H, Neut % (Auto) 80.0 H, Lymph % (Auto) 6.4 L, [place] % (Auto) 8.3, Eos % (Auto) 0.0, Baso % (Auto) 0.9, Absolute Neuts (auto) 7.0, Absolute Lymphs (auto) 0.56 L, Nucleated RBC % 0.7, Platelet Estimate SLT DEC, Polychromasia RARE, Hypochromasia 1+, Anisocytosis 2+ 04/29/23 01:20: PT 13.3, INR 1.0, APTT 24.9 04/29/23 01:20: Sodium 142, Potassium 4.6, Chloride 91 L, Carbon Dioxide > 45.0 H*, Anion Gap TNP, BUN 39 H, Creatinine 0.63, Estim Creat Clear Calc 26.74, Est GFR (MDRD) Af Amer 120, Est GFR (MDRD) Non-Af 99, BUN/Creatinine Ratio 61.8 H, Glucose 149 H, Calcium 9.1, Total Bilirubin 0.70, AST 13 L, ALT 15, Alkaline Phosphatase 44 L, Total Creatine Kinase 28, Total Protein 7.7, Albumin 3.8, Globulin 3.9, Albumin/Globulin Ratio 1.0 04/29/23 01:45: Urine Color Yellow, Urine Clarity Clear, Urine pH 5.0, Ur Specific [place] 1.025, Urine Protein 100 H, Urine Glucose (UA) Normal, Urine Ketones 5 H, Urine Occult Blood 50 H, Urine Nitrite Negative, Urine Bilirubin Negative, Urine Urobilinogen Normal, Ur Leukocyte Esterase Negative, Urine RBC 5-10 SEEN, Urine WBC 0 SEEN, Ur Squamous Epith Cells 0 SEEN, Amorphous Sediment 1+, Urine Bacteria 2+, Urine Mucus 0 SEEN 04/29/23 01:51: Lactic Acid 1.7 Micro: Microbiology 04/29/23 01:47 Nasal Secretion SARS-CoV-2 & FLU Antigen (Rapid) - Final 04/29/23 02:05 Stool Stool Occult Blood (DESIY) - Final Occult Blood Positive Assessment & Plan Assessment/Plan (1) Acute on chronic respiratory failure with hypoxia and hypercapnia: PLAN: Plan 1. Acute on chronic combined respiratory failure-patient will be admitted to ICU, patient will have repeat blood gas was performed in approximately 90 minutes, she will be maintained on BiPAP, she will be seen in consultation by critical care. Patient will be given aerosol treatments. #2 end-stage chronic obstructive pulmonary disease-complicates care, medical course, recovery, and prognosis #3 severe protein and caloric malnutrition-patient told this examiner that she has been eating at home but it is obvious from her weight that she has not been consuming enough calories. She will be seen by nutritional services #4 anemia-etiology unclear, iron studies were ordered, labs will be monitored #5 essential hypertension-patient will remain on her current home medications #6 probable [id number] care, medical course, recovery, and prognosis Total clinical time spent by myself addressing the patient's medical issues, reviewing all of her data, and collaborating with patient's care team: 73 suyapa madhavi
[2023-04-29 03:36] LABS: Blood Gas Specimen Type VEN; O2 Delivery Device Nasal Can
[2023-04-29 03:37] LABS: VBG pH 7.25 (7.32-7.42)
[2023-04-29 03:38] LABS: VBG BASE EXCESS 25 mmol/L (-1.0-3.5); VBG Bicarbonate 52 mmol/L (22-26); VBG PO2 46 mmHg (25-40); VBG SO2 69 % (50-70); VBG TCO2 > 50 mmol/L (23-33); VBG pCO2 118.7 mmHg (41-51)
[2023-04-29 04:45] LABS: Ferritin 4 ng/mL (8-252); Iron 34 ug/dL (50-170); Iron Binding Capacity,Total 432 ug/dL (250-450); PERCENT IRON SATURATION 7.9 % (15.0-55.0)
--- NOTE | 2023-04-29 05:52 | CPS ---
ABG drawn , however prior to the pt mask was leaking, tidal volumes were lower. Leak fixed tidal volumes 350-425 spo2 high 90s fio2 decreased to 32% Pt is easy to arouse , answers questions appropriately. RN aware.
[2023-04-29 06:42] LABS: Allen Test Positive; Base Excess 20 mmol/L (-2 to +2); Bicarbonate 47.9 mmol/L (22-26); Blood Gas Specimen Type ART; FI02 40; O2 Delivery Device BiPAP; PEEP 8; PO2 70 mmHG (75-100); RR 14; SITE L Brach; SO2 87 % (95-99); Total Carbon Dioxide > 50 mmol/L; Vt 425; pCO2 119.4 mmHg (35-45); pH 7.21 (7.35-7.45)
[2023-04-29] MEDS: Budesonide Respules 0.5 MG/2 ML AMPUL.NEB. INHALATION (06:59)
[2023-04-29] MEDS: Ipratropium/Albuterol Sulfate 3 ML AMPUL.NEB INHALATION ×5 (06:59→22:35)
--- NOTE | 2023-04-29 07:27 | PCM.PN.HOSP ---
Reason for Visit Reason for Visit: Diagnoses Acute and chronic respiratory failure with hypoxia (04/29/23) Acute and chronic respiratory failure with hypercapnia (04/29/23) Subjective Subjective Patient resting in with BiPAP on, awake and alert but did seem to have difficulty answering questions directly Objective Data Objective Data Vital Signs: Vital Signs Temp Pulse Resp BP Pulse Ox O2 Del Method O2 Flow Rate 98.6 F 91 20 H 137/91 H 96 Bi-pap 6 04/29/23 04:30 04/29/23 07:01 04/29/23 07:01 04/29/23 07:00 04/29/23 07:00 04/29/23 07:00 04/29/23 01:41 FiO2 40 04/29/23 07:00 Oxygen Flow Rate (L/min) 6 Oxygen Delivery Method Bi-pap Weight: 29.6 kg Body Mass Index (BMI) 10.5 Intake & Output: Intake and Output for Last 24 Hours 04/27/23 04/28/23 04/29/23 23:59 23:59 23:59 Intake Total 1110 / 1110 Balance 1110 / 1110 Lab / Micro Data Result Diagrams: 04/29/23 08:00 04/29/23 01:20 Labs: Laboratory Results - last 24 hr 04/29/23 01:20: WBC 8.7, RBC 4.26, Hgb 9.0 L, Hct 36.6 L, MCV 85.9, MCH 21.1 L, MCHC 24.6 L, RDW Std Deviation 58.3 H, RDW Coeff of Marie 18.6 H, Plt Count 138 L, MPV 10.1, Immature Gran % (Auto) 4.400 H, Neut % (Auto) 80.0 H, Lymph % (Auto) 6.4 L, Gaines % (Auto) 8.3, Eos % (Auto) 0.0, Baso % (Auto) 0.9, Absolute Neuts (auto) 7.0, Absolute Lymphs (auto) 0.56 L, Nucleated RBC % 0.7, Platelet Estimate SLT DEC, Polychromasia RARE, Hypochromasia 1+, Anisocytosis 2+ 04/29/23 01:20: PT 13.3, INR 1.0, APTT 24.9 04/29/23 01:20: Sodium 142, Potassium 4.6, Chloride 91 L, Carbon Dioxide > 45.0 H*, Anion Gap TNP, BUN 39 H, Creatinine 0.63, Estim Creat Clear Calc 26.74, Est GFR (MDRD) Af Amer 120, Est GFR (MDRD) Non-Af 99, BUN/Creatinine Ratio 61.8 H, Glucose 149 H, Calcium 9.1, Total Bilirubin 0.70, AST 13 L, ALT 15, Alkaline Phosphatase 44 L, Total Creatine Kinase 28, Total Protein 7.7, Albumin 3.8, Globulin 3.9, Albumin/Globulin Ratio 1.0 04/29/23 01:20: Iron 34 L, TIBC 432, Iron Saturation 7.9 L, Ferritin 4 L 04/29/23 01:45: Urine Color Yellow, Urine Clarity Clear, Urine pH 5.0, Ur Specific [place] 1.025, Urine Protein 100 H, Urine Glucose (UA) Normal, Urine Ketones 5 H, Urine Occult Blood 50 H, Urine Nitrite Negative, Urine Bilirubin Negative, Urine Urobilinogen Normal, Ur Leukocyte Esterase Negative, Urine RBC 5-10 SEEN, Urine WBC 0 SEEN, Ur Squamous Epith Cells 0 SEEN, Amorphous Sediment 1+, Urine Bacteria 2+, Urine Mucus 0 SEEN 04/29/23 01:51: Lactic Acid 1.7 Micro: Microbiology 04/29/23 01:47 Nasal Secretion SARS-CoV-2 & FLU Antigen (Rapid) - Final 04/29/23 02:05 Stool Stool Occult Blood (DEISY) - Final Occult Blood Positive ABG Data ABG results: ABG 04/29/23 04/29/23 04/29/23 02:46 05:27 05:36 Specimen Type UBALDO ART Cancelled Sample Site L Brach Cancelled pH 7.21 L Cancelled Bicarbonate Actual 47.9 H Cancelled Total CO2 > 50 Cancelled Base Excess 20 H Cancelled O2 Saturation 87 L Cancelled O2 % 40 Cancelled ABG pCO2 119.4 H* Cancelled ABG pO2 70 L Cancelled Eduardo Test Positive Cancelled VBG pH 7.25 L VBG pO2 46 H VBG HCO3 52 H VBG Total CO2 > 50 H VBG O2 Sat (Calc) 69 VBG Base Excess 25 H POC Mix VBG pCO2 Pt Tmp 118.7 H* Respiration Rate 14 Cancelled O2 Delivery Device Nasal Can BiPAP Cancelled Liter Flow 3.0 Cancelled Minute Volume Cancelled Vent Mode Cancelled Inspiratory Time Cancelled Expiratory Time Cancelled Tidal Volume 425 Cancelled Mean Airway Pressure Cancelled POC PEEP 8 Cancelled Peak Inspir Pressure Cancelled POC Pressure Suppt Cancelled Pressure Control Cancelled Pressure High Cancelled Pressure Low Cancelled Time High Cancelled Time Low Cancelled EPAP Cancelled IPAP Cancelled Blood Gas Comments Cancelled Crit Call To/Read Back Yes Yes Cancelled Blood Gas Notified Whom ED MD dr vences Cancelled Blood Gas Notified Time 0246 Cancelled Clinical Comments AVAPS 425 r14 40% +8 Cancelled Radiography Diagnostic Testing: Radiology Impression Brain CT 04/29/23 01:38 IMPRESSION: Chronic involutional and white matter changes. No evidence of acute intracranial abnormality. Electronically Signed: Mello Stahl MD at 3:42 EDT , Chest X-Ray 04/29/23 03:10 IMPRESSION: COPD and lung scarring with probable mild superimposed basilar atelectasis. Electronically Signed: Mello Stahl MD at 4:03 EDT , Physical Exam Narrative General: Alert, BiPAP in place HEENT: Atraumatic, normocephalic Eyes: Anicteric, normal conjunctiva, extraocular movements grossly intact Neck: Supple Respiratory: Diminished bilaterally Cardiovascular: Regular rate and rhythm GI: Soft, nondistended, possibly some tenderness but patient had difficulty reporting the symptom though said stop when palpating abdomen Extremities: No edema Musculoskeletal: Moving all extremities Neuro: No overt focal neurological deficits Skin: No rashes appreciated Psych: Attempts to be cooperative Assessment & Plan Assessment/Plan (1) Acute on chronic respiratory failure with hypoxia and hypercapnia: PLAN: Plan #Acute metabolic encephalopathy secondary to acute on chronic hypoxic hypercapnic respiratory failure with history of chronic COPD on home 2L O2 -Was noted to be 56% O2 sat on room air prior to arrival and was placed on nonrebreather -Chest x-ray with no acute process or pneumonia is appreciated -VBG obtained in ED due to inability to get ABG secondary to hard stick with a pH of 7.25, PCO2 of 119 and PO2 of 46 -She was alert on nasal cannula 6 L in ED but had been transitioned to BiPAP prior to CT after VBG results obtained -Admitted to ICU with stringer machine tender consult -Nebs, inhaled steroids but inhaled steroids changed to IV Methylpred -COVID-negative, will obtain respiratory panel given unclear precipitating cause and will order sputum culture in the event patient unable to produce any sputum -White blood cell count within normal limits but does appear to have left shift, blood cultures obtained, possibly reactive, patient afebrile, patient was started on azithromycin however due to current clinical picture -Repeat blood gas in the a.m. was ABG demonstrated PO2 of 70, O2 sat 97% with a PCO2 of 119.4 -Did have CT head in the ED due to altered mental status which was unrevealing for acute cause, demonstrated chronic abnormalities but again suspect this is more due to hypoxia and hypercapnia #Acute on chronic anemia -Hgb 9 on arrival down from 13.8 back in June 2022 w/ positive FOBT -Given 1x protonix in ED -Did have BUN of 39 without bump in creatinine suspicious for possible upper GI -Will order IV PPI, repeat H&H, will c/s GI however given patient's lack of stability at the moment is not a great candidate for procedure though may need scope prior to d/c pending progress/hgb #severe protein and caloric malnutrition -Patient BMI listed is 10.5 kg/m? -To be seen by nutrition #Hypertension -Continue present management #History of kidney stones -Supportive care #DVT ppx: Heparin subcu Annika Schmitz MD Time spent in the patient's overall evaluation,decision-making process, review of diagnostic data, adjustment of management, discussion with other providers, nursing nursing and ancillary staff involved in patient's care documentation, 45 minutes
--- NOTE | 2023-04-29 07:39 | CON.PCM.CC_ITS ---
Assessment & Plan Assessment/Plan (1) Acute on chronic respiratory failure with hypoxia and hypercapnia: (2) Acute encephalopathy: (3) Anemia: PLAN: Plan RECOMMENDATIONS: 1. Transition to IV steroids 2. Obtain respiratory panel 3. Continue BiPAP for now pending family discussion on goals of therapy 4. Agree with high-dose PPI 5. Keep oxygen saturations between 90 and 94% 6. Consult dietitian for severe protein calorie malnutrition 7. Monitor for refeeding syndrome IMPRESSIONS: 1. Acute on chronic combined respiratory failure Unclear etiology. Patient does have very severe COPD at baseline with an FEV1 of 29% in 2019. Unclear if this is secondary to a viral etiology. Chest x-ray does not show any obvious infiltrates, but given the amount of hyperinflation patient has, infiltrates can be difficult to assess. We will transition to IV steroids and bronchodilators. Obtain a respiratory panel. Continue with BiPAP for now, but cannot exclude the need to progression for intubation. Patient's ability to be liberated from the ventilator is severely limited given her metabolic reserve, advanced lung disease and unclear etiology. We will place patient on 5 days of azithromycin empirically. 2. Severe protein calorie malnutrition Patient has not had imaging studies in several years. However, given patient's advanced lung disease, pulmonary cachexia would be suspected. Patient may develop refeeding syndrome with nutritional supplementation. Dietitian will be consulted. 3. Anemia Patient with a significant drop in hemoglobin since last check. Patient MCV is within normal limits, but ferritin is only 4, which should lead to severe microcytic anemia. Clinical suspicion for an element of B12 deficiency also. Patient does have an elevated BUN, so GI bleed would be suspected. This means patient would have both acute blood loss anemia and vitamin deficient anemia. This would complicate patient's respiratory status and may be the etiology of her decline. 4. Essential hypertension/concern for self neglect/history of aspergilloma/history of kidney stones Complicates care, management, recovery and prognosis. Patient is guaiac positive, so slow GI bleed would be a consideration. Malignancy also cannot be excluded. Patient reportedly is unable to get out of bed, but continues to live independently. Social work will follow patient. Cannot exclude the need for ECF if patient continues to be aggressive. TIME: 45 minutes critical care time spent addressing patient's respiratory failure, malnutrition, anemia, review of all data and collaboration with care team HPI Consult Data Date of Consult: 04/29/23 HPI Narrative HPI Narrative: TIFFANY PETTIT is a 67 F, with past medical history listed below and well-known to me from the outpatient office, who presents to [facility] on 04/29/2023 after a well check. Patient reportedly had been checked on by her son and was found to be locked in her bedroom. Forced entry was obtained and the patient was unable to get out of bed. Patient had been incontinent of urine. EMS had reported the patient was 56% on room air with significant confusion. Patient does live alone at baseline. Patient reportedly had denied any chest or abdominal pain at that time. Patient not reported any bloody or black stools. In the ER, patient was afebrile, but tachycardic at 111 bpm. Patient was normotensive, but requiring 6 L nasal cannula to maintain saturations. Patient was placed on BiPAP therapy after a VBG showed significant CO2 retention and acidosis. Laboratory work-up showed a white blood cell count of 8.7, hemoglobin of 9 and platelets of 138. Coagulation studies were within normal limits. Chemistry showed an elevated bicarbonate of greater than 45 with a creatinine of 0.63 and a glucose of 149. Lactate was within normal limits. A UA showed no white blood cells, but 2+ bacteria. CT scan of the head showed only chronic involutional changes. Chest x-ray showed hyperinflation with lung scarring and bibasilar atelectasis. The patient was transferred to the intensive care unit for further evaluation. Since being in the intensive care unit, patient's mentation has significantly improved since being on BiPAP. Patient denies any current chest pain, abdominal pain, nausea or vomiting. Patient has no recollection of being brought from her home. Patient is unable to provide significant information prior to being seen by EMS. When discussing CODE STATUS, patient became very tearful and stated that she was not ready to . Patient stopped short of refusing intubation. Unable to ob tain review of systems secondary to emotional state and reported amnesia [facility] Medical History Acute respiratory failure with hypoxia Anemia Aspergillosis Asthma Community acquired pneumonia COPD (chronic obstructive pulmonary disease) Dermatitis Flu vaccine need Head lice Health care maintenance Hyperglycemia Hypertension Hypoxemia Low body mass index (BMI) Malnutrition Osteoporosis Pneumonia Poor dentition Seasonal allergies Tinea unguium Toe pain, left Toe pain, right Vitamin D deficiency Vitamin deficiency Home Medications albuterol sulfate 0.63 mg/3 mL solution for nebulization 0.63 mg (3 mL) inhalation Q6H PRN shortness of breath or wheezing #90 mL 05/12/19 [Rx Last Taken 01/12/21] budesonide 1 mg/2 mL suspension for nebulization 1 mg (2 mL) inhalation BID #60 mL 12/09/20 [Rx Last Taken 01/15/21] ondansetron HCl 4 mg tablet (Zofran) 4 mg PO Q8H PRN nausea and vomiting #60 tabs 01/26/21 [Rx Last Taken Unknown] meclizine 12.5 mg tablet 12.5 mg PO BID PRN dizziness #60 tabs 06/07/22 [Rx Last Taken Unknown] mirtazapine 15 mg tablet 15 mg PO QHS sleep/ Appetite #90 tabs 07/24/22 [Rx Last Taken Unknown] permethrin 1 % topical liquid (Lice Killing (permethrin)) 60 ml topical ONCE #59 mL 12/04/22 [Rx Last Taken Unknown] carvedilol 12.5 mg tablet 12.5 mg PO BID 3 months #180 tabs 02/18/23 [Rx Last Taken Unknown] ergocalciferol (vitamin D2) 1,250 mcg (50,000 unit) capsule See Rx Instructions .Route .COMPLEX #12 caps 03/06/23 [Rx Last Taken Unknown] Allergy/AdvReac Type Severity Reaction Status Date / Time codeine Allergy Made me Verified 12/04/22 15:25 pass out Penicillins [PCN] Allergy Rash Verified 12/04/22 15:25 Family History Mother Anemia Angina pectoris Asthma Anxiety Arthritis Scleroderma Depression Myocardial infarction Heart disease Hypertension High cholesterol Osteoporosis CVA (cerebral vascular accident) Surgical History History of tonsillectomy Social History Smoking Status: Former smoker quit date: 11/11/84 alcohol intake: current alcohol intake frequency: 3 or more drinks per day substance use type: does not use what type of physical activity do you participate in: none ROS Review of Systems ROS Unobtainable: due to mental status Physical Exam Const alert and oriented x3 Constitutional Narrative: Patient appears severely cachectic and older than her stated age. Good BiPAP synchrony General Appearance: cooperative HEENT normocephalic, head/scalp atraumatic and hearing grossly normal bilaterally HEENT Narrative: Significant temporal wasting Eyes PERRL, EOMs intact bilaterally and conjunctivae normal Neck supple, no JVD, thyroid normal and no carotid bruits General: trachea midline Chest Chest: abnormal inspection of the chest increased A-P diameter Resp Resp Narrative: Breath sounds are distant bilaterally. Good BiPAP synchrony. Auscultation: wheezes and diminished lung sounds; Negative for rales or rhonchi Cardio regular rate, regular rhythm, S1 normal heart sound, S2 normal heart sound, no murmurs, no rub and no gallops GI normal to inspection, nondistended, normoactive bowel sounds, soft to palpation, non-tender and non-distended Extremity no clubbing, cyanosis or edema Skin no rashes or lesions noted General Skin Exam: no breakdown Neuro CN's II-XII intact bilaterally, moves all extremities, no focal motor deficits and no sensory deficits noted Psych Psych Narrative: Patient is a poor informant, she is oriented as to person place and year Activity / Motor Behavior: restless Mood & Affect: anxious Medical Records Data Attestation: I reviewed the patient's medical records Lab / Micro Data Attestation: I reviewed the patient's lab results. Result Diagrams: 04/29/23 01:20 04/29/23 01:20 Labs: Laboratory Results - last 24 hr 04/29/23 01:20: WBC 8.7, RBC 4.26, Hgb 9.0 L, Hct 36.6 L, MCV 85.9, MCH 21.1 L, MCHC 24.6 L, RDW Std Deviation 58.3 H, RDW Coeff of Marie 18.6 H, Plt Count 138 L, MPV 10.1, Immature Gran % (Auto) 4.400 H, Neut % (Auto) 80.0 H, Lymph % (Auto) 6.4 L, [place] % (Auto) 8.3, Eos % (Auto) 0.0, Baso % (Auto) 0.9, Absolute Neuts (auto) 7.0, Absolute Lymphs (auto) 0.56 L, Nucleated RBC % 0.7, Platelet Estimate SLT DEC, Polychromasia RARE, Hypochromasia 1+, Anisocytosis 2+ 04/29/23 01:20: PT 13.3, INR 1.0, APTT 24.9 04/29/23 01:20: Sodium 142, Potassium 4.6, Chloride 91 L, Carbon Dioxide > 45.0 H*, Anion Gap TNP, BUN 39 H, Creatinine 0.63, Estim Creat Clear Calc 26.74, Est GFR (MDRD) Af Amer 120, Est GFR (MDRD) Non-Af 99, BUN/Creatinine Ratio 61.8 H, Glucose 149 H, Calcium 9.1, Total Bilirubin 0.70, AST 13 L, ALT 15, Alkaline Phosphatase 44 L, Total Creatine Kinase 28, Total Protein 7.7, Albumin 3.8, Globulin 3.9, Albumin/Globulin Ratio 1.0 04/29/23 01:20: Iron 34 L, TIBC 432, Iron Saturation 7.9 L, Ferritin 4 L 04/29/23 01:45: Urine Color Yellow, Urine Clarity Clear, Urine pH 5.0, Ur Specific [place] 1.025, Urine Protein 100 H, Urine Glucose (UA) Normal, Urine Ketones 5 H, Urine Occult Blood 50 H, Urine Nitrite Negative, Urine Bilirubin Negative, Urine Urobilinogen Normal, Ur Leukocyte Esterase Negative, Urine RBC 5-10 SEEN, Urine WBC 0 SEEN, Ur Squamous Epith Cells 0 SEEN, Amorphous Sediment 1+, Urine Bacteria 2+, Urine Mucus 0 SEEN 04/29/23 01:51: Lactic Acid 1.7 Micro: Microbiology 04/29/23 01:47 Nasal Secretion SARS-CoV-2 & FLU Antigen (Rapid) - Final 04/29/23 02:05 Stool Stool Occult Blood (DEISY) - Final Occult Blood Positive ABG Data ABG results: ABG 04/29/23 04/29/23 04/29/23 02:46 05:27 05:36 Specimen Type UBALDO ART Cancelled Sample Site L Brach Cancelled pH 7.21 L Cancelled Bicarbonate Actual 47.9 H Cancelled Total CO2 > 50 Cancelled Base Excess 20 H Cancelled O2 Saturation 87 L Cancelled O2 % 40 Cancelled ABG pCO2 119.4 H* Cancelled ABG pO2 70 L Cancelled Eduardo Test Positive Cancelled VBG pH 7.25 L VBG pO2 46 H VBG HCO3 52 H VBG Total CO2 > 50 H VBG O2 Sat (Calc) 69 VBG Base Excess 25 H POC Mix VBG pCO2 Pt Tmp 118.7 H* Respiration Rate 14 Cancelled O2 Delivery Device Nasal Can BiPAP Cancelled Liter Flow 3.0 Cancelled Minute Volume Cancelled Vent Mode Cancelled Inspiratory Time Cancelled Expiratory Time Cancelled Tidal Volume 425 Cancelled Mean Airway Pressure Cancelled POC PEEP 8 Cancelled Peak Inspir Pressure Cancelled POC Pressure Suppt Cancelled Pressure Control Cancelled Pressure High Cancelled Pressure Low Cancelled Time High Cancelled Time Low Cancelled EPAP Cancelled IPAP Cancelled Blood Gas Comments Cancelled Crit Call To/Read Back Yes Yes Cancelled Blood Gas Notified Whom ED MD dr vences Cancelled Blood Gas Notified Time 0246 Cancelled Clinical Comments AVAPS 425 r14 40% +8 Cancelled Attestation: I personally reviewed and interpreted this ABG as follows: (Partially compensated respiratory acidosis with increased AA gradient) Radiology Impression Brain CT 04/29/23 01:38 IMPRESSION: Chronic involutional and white matter changes. No evidence of acute intracranial abnormality. Electronically Signed: Mello Stahl MD at 3:42 EDT , Chest X-Ray 04/29/23 03:10 IMPRESSION: COPD and lung scarring with probable mild superimposed basilar atelectasis. Electronically Signed: Mello Stahl MD at 4:03 EDT , Charges/Coding Procedures Hospitalists Procedures: 35210 Critial Care 1st Hr
[2023-04-29 08:13] LABS: Absolute Lymphocyte Count 0.44 X10^3/uL (0.83-4.51); Basophil# 0.03 X10^3/uL; Basophil% 0.4 % (0-1); Hematocrit 31.1 % (37-47); Hemoglobin 7.5 g/dL (12.0-15.0); Lymphocyte # 0.44 X10^3/ul (0.83-4.51); Mean Corp Hgb Conc 24.1 g/dL (32-36); Mean Corpuscular Hgb 20.8 pg (27.0-32.0); Mean Corpuscular Volume 86.4 fL (81-99); Mean Platelet Vol. 10.3 fl (6.2-12.0); Monocyte# 0.69 X10^3/uL; Monocyte% 9.3 % (0-10); NRBC Flagged by Analyzer 0.4 % (0-5); Neutrophil # 6.04 X10^3/uL (2.7-7.7); Neutrophil % 81.9 % (47-70); POSITIVE DIFFERENTIAL YES; Platelet Count 109 K/mm3 (150-450); RBC Distribution Width CV 18.4 % (11.6-14.6); RBC Distribution Width SD 58.6 fl (35.1-43.9); White Blood Count 7.4 K/mm3 (4.4-11.0)
[2023-04-29 08:14] LABS: Differential Indicated SCAN CRITERIA MET
[2023-04-29] MEDS: Carvedilol 12.5 MG Tablet PO (09:40)
[2023-04-29] MEDS: Heparin Injection (Vial) 5,000 UNIT/ML VIAL 5000 UNIT SC ×2 (09:40→20:19)
[2023-04-29] MEDS: Methylprednisolone Sod Succ 40 MG/ML VIAL IV ×3 (09:40→20:19)
--- NOTE | 2023-04-29 12:01 | CASEMGMT ---
Social Work POA for healthcare is scanned into summary tab, Gerard Navarro is listed as healthcare POA. Pt does not have LW on file. EARNEST Hamilton
[2023-04-29 12:44] LABS: AST(SGOT) 13 U/L (15-37); Alanine Aminotransfer ALT/SGPT 12 U/L (13-56); Alkaline Phosphatase 36 U/L (45-117); BUN 35 mg/dL (7-18); Calcium,Total 8.4 mg/dL (8.5-10.1); Carbon Dioxide > 45.0 mmol/L (21.0-32.0); Chloride 96 mmol/L (98-107); Creatinine, Serum 0.52 mg/dL (0.55-1.02); EST Glomerular Filtration Rate 125 mL/min (>60); Est Glom Filt Rate - Afr Amer 152 mL/min (>60); Estimated Creatinine Clearance 24.81 ml/min; Globulin 3.1 g/dL (2.2-4.2); Glucose 203 mg/dL (74-106); Potassium 4.5 mmol/L (3.5-5.1); Protein, Total 6.1 g/dL (6.4-8.2); Sodium Level 141 mmol/L (136-145); Vitamin B12 428 pg/mL (211-911); Vitamin D,25 Hydroxy 19.5 ng/mL
--- NOTE | 2023-04-29 15:59 | CASEMGMT ---
Patient is on continuous Bipap at this time. Assessment deferred and will attempt again at later time when patient is able to participate.
--- NOTE | 2023-04-29 16:10 | CASEMGMT ---
ANGELINE BISHOP in to complete CHRISTIAN form with patient, patient sleeping daughter Renee at bedside. ANGELINE BISHOP explained CHRISTIAN Form to daughter, daughter voiced understanding. Daughter signed CHRISTIAN form and filed in chart. Patient provided with copy of signed CHRISTIAN Form. Discharge plan discussed with daughter, plan is for patient to return home with resumption of HHC and IV ATBs. Daughter had no further questions or concerns at this time .
--- NOTE | 2023-04-29 17:21 | EX.PCM.CON.G ---
HPI Consult Data Date of Consult: 04/29/23 Attending Care Provider: Anemia HPI Narrative Reason for Consultation: Anemia HPI Narrative: TIFFANY PETTIT, is a 67 F who presents to the emergency room at [facility] after being brought in by squad after she was found at home too weak to get out of bed and was noted to be confused.? She was found by her son who was unable to get into her room, the door had to be broken down and the patient was found in bed confused and unable to get up without assistance.? Patient has a history of chronic obstructive pulmonary disease and is on chronic oxygen at home. Evaluation in the emergency room included a chest x-ray which showed no active infiltrates, CBC showed a normal white blood cell count, hemoglobin was 9, chemistry panel showed an elevated bicarb above 45, glucose was 149, and patient's urinalysis showed +2 bacteria, 5-10 RBCs, 0 WBCs. Patient had a blood gas performed in the emergency room, respiratory therapy was unable to get arterial blood gases but venous blood gases showed a pH of 7.25, PCO2 of 118 and PO2 of 46. She was admitted to ICU for acute encephalopathy secondary to combined acute on chronic respiratory failure and acute on chronic combined respiratory failure. Her hemoglobin was noted to be 12 in 2021. It drifted down to 10-9 and currently it is 7.5. I was asked to see her for the for management of her anemia. [facility] Medical History Acute respiratory failure with hypoxia Anemia Aspergillosis Asthma Community acquired pneumonia COPD (chronic obstructive pulmonary disease) Dermatitis Flu vaccine need Head lice Health care maintenance Hyperglycemia Hypertension Hypoxemia Low body mass index (BMI) Malnutrition Osteoporosis Pneumonia Poor dentition Seasonal allergies Tinea unguium Toe pain, left Toe pain, right Vitamin D deficiency Vitamin deficiency Home Medications albuterol sulfate 0.63 mg/3 mL solution for nebulization 0.63 mg (3 mL) inhalation Q6H PRN shortness of breath or wheezing #90 mL 05/12/19 [Rx Last Taken 01/12/21] budesonide 1 mg/2 mL suspension for nebulization 1 mg (2 mL) inhalation BID #60 mL 12/09/20 [Rx Last Taken 01/15/21] ondansetron HCl 4 mg tablet (Zofran) 4 mg PO Q8H PRN nausea and vomiting #60 tabs 01/26/21 [Rx Last Taken Unknown] meclizine 12.5 mg tablet 12.5 mg PO BID PRN dizziness #60 tabs 06/07/22 [Rx Last Taken Unknown] mirtazapine 15 mg tablet 15 mg PO QHS sleep/ Appetite #90 tabs 07/24/22 [Rx Last Taken Unknown] permethrin 1 % topical liquid (Lice Killing (permethrin)) 60 ml topical ONCE #59 mL 12/04/22 [Rx Last Taken Unknown] carvedilol 12.5 mg tablet 12.5 mg PO BID 3 months #180 tabs 02/18/23 [Rx Last Taken Unknown] ergocalciferol (vitamin D2) 1,250 mcg (50,000 unit) capsule See Rx Instructions .Route .COMPLEX #12 caps 03/06/23 [Rx Last Taken Unknown] Allergy/AdvReac Type Severity Reaction Status Date / Time codeine Allergy Made me Verified 12/04/22 15:25 pass out Penicillins [PCN] Allergy Rash Verified 12/04/22 15:25 Family History Mother Anemia Angina pectoris Asthma Anxiety Arthritis Scleroderma Depression Myocardial infarction Heart disease Hypertension High cholesterol Osteoporosis CVA (cerebral vascular accident) Surgical History History of tonsillectomy Social History Smoking Status: Former smoker quit date: 11/11/84 alcohol intake: current alcohol intake frequency: 3 or more drinks per day substance use type: does not use what type of physical activity do you participate in: none ROS Review of Systems ROS Unobtainable: due to mental status Physical Exam Const alert and oriented x3 Constitutional Narrative: Patient appears older than her stated age. General Appearance: cooperative HEENT normocephalic, head/scalp atraumatic and hearing grossly normal bilaterally HEENT Narrative: Significant temporal wasting Eyes PERRL, EOMs intact bilaterally and conjunctivae normal Neck supple, no JVD, thyroid normal and no carotid bruits General: trachea midline Chest Chest: abnormal inspection of the chest increased A-P diameter Resp Resp Narrative: Breath sounds are distant bilaterally. Good BiPAP synchrony. Auscultation: wheezes and diminished lung sounds; Negative for rales or rhonchi Cardio regular rate, regular rhythm, S1 normal heart sound, S2 normal heart sound, no murmurs, no rub and no gallops GI normal to inspection, nondistended, normoactive bowel sounds, soft to palpation, non-tender and non-distended Extremity no clubbing, cyanosis or edema Skin no rashes or lesions noted General Skin Exam: no breakdown Neuro CN's II-XII intact bilaterally, moves all extremities, no focal motor deficits and no sensory deficits noted Psych Psych Narrative: Patient is a poor informant, she is oriented as to person place and year Activity / Motor Behavior: restless Mood & Affect: anxious Medical Records Data Medical Nutrition Assessment Dietitian: Malnutrition Criteria Met Start: 04/29/23 12:29 Freq: Status: Active Protocol: Document 04/29/23 12:29 [facility] (Rec: 04/29/23 12:30 [facility] [id number]) Nutrition Malnutrition Evidence of Malnutrition Exists Yes Malnutrition (severe): Chronic Evidenced By Suboptimal Energy Intake ( Severe),Weight Loss (Severe), Physical Changes (Severe) Clinical Problem Chronic Disease or Condition Related Malnutrition Etiology SEVERE related to inadequate energy intake and cachexia Signs/Symptoms as evidenced by BMI 10.5 w/ UBW 34.1 kg for past 15 years , po intake <75% if estimated nutritional needs and obvious fat/muscle wasting in face, torso and extremities Status Active Problem Recommendation Dietitian Recommendations/Changes As medically able, rec ERIN to Regular w/ 4 oz ensure plus high protein 3x/day w/ medpass If NPO duration expected prolonged, res nutrition support to help prevent decline in pt nutritional status Pt at HIGH RISK of REFEEDING SYNDROME - monitor for changes in nutritional status Lab / Micro Data Result Diagrams: 04/29/23 08:00 04/29/23 11:40 Labs: Laboratory Results - last 24 hr 04/29/23 01:20: WBC 8.7, RBC 4.26, Hgb 9.0 L, Hct 36.6 L, MCV 85.9, MCH 21.1 L, MCHC 24.6 L, RDW Std Deviation 58.3 H, RDW Coeff of Marie 18.6 H, Plt Count 138 L, MPV 10.1, Immature Gran % (Auto) 4.400 H, Neut % (Auto) 80.0 H, Lymph % (Auto) 6.4 L, [place] % (Auto) 8.3, Eos % (Auto) 0.0, Baso % (Auto) 0.9, Absolute Neuts (auto) 7.0, Absolute Lymphs (auto) 0.56 L, Nucleated RBC % 0.7, Platelet Estimate SLT DEC, Polychromasia RARE, Hypochromasia 1+, Anisocytosis 2+ 04/29/23 01:20: PT 13.3, INR 1.0, APTT 24.9 04/29/23 01:20: Sodium 142, Potassium 4.6, Chloride 91 L, Carbon Dioxide > 45.0 H*, Anion Gap TNP, BUN 39 H, Creatinine 0.63, Estim Creat Clear Calc 26.74, Est GFR (MDRD) Af Amer 120, Est GFR (MDRD) Non-Af 99, BUN/Creatinine Ratio 61.8 H, Glucose 149 H, Calcium 9.1, Total Bilirubin 0.70, AST 13 L, ALT 15, Alkaline Phosphatase 44 L, Total Creatine Kinase 28, Total Protein 7.7, Albumin 3.8, Globulin 3.9, Albumin/Globulin Ratio 1.0 04/29/23 01:20: Iron 34 L, TIBC 432, Iron Saturation 7.9 L, Ferritin 4 L 04/29/23 01:45: Urine Color Yellow, Urine Clarity Clear, Urine pH 5.0, Ur Specific [place] 1.025, Urine Protein 100 H, Urine Glucose (UA) Normal, Urine Ketones 5 H, Urine Occult Blood 50 H, Urine Nitrite Negative, Urine Bilirubin Negative, Urine Urobilinogen Normal, Ur Leukocyte Esterase Negative, Urine RBC 5-10 SEEN, Urine WBC 0 SEEN, Ur Squamous Epith Cells 0 SEEN, Amorphous Sediment 1+, Urine Bacteria 2+, Urine Mucus 0 SEEN 04/29/23 01:51: Lactic Acid 1.7 04/29/23 08:00: WBC 7.4, RBC 3.60 L, Hgb 7.5 L, Hct 31.1 L, MCV 86.4, MCH 20.8 L, MCHC 24.1 L, RDW Std Deviation 58.6 H, RDW Coeff of Marie 18.4 H, Plt Count 109 L, MPV 10.3, Immature Gran % (Auto) 2.400 H, Neut % (Auto) 81.9 H, Lymph % (Auto) 6.0 L, [place] % (Auto) 9.3, Eos % (Auto) 0.0, Baso % (Auto) 0.4, Absolute Neuts (auto) 6.0, Absolute Lymphs (auto) 0.44 L, Nucleated RBC % 0.4, Differential Comment COMMENT 04/29/23 11:40: Sodium 141, Potassium 4.5, Chloride 96 L, Carbon Dioxide > 45.0 H*, Anion Gap TNP, BUN 35 H, Creatinine 0.52 L, Estim Creat Clear Calc 24.81, Est GFR (MDRD) Af Amer 152, Est GFR (MDRD) Non-Af 125, BUN/Creatinine Ratio 68.0 H, Glucose 203 H, Calcium 8.4 L, Total Bilirubin 0.60, AST 13 L, ALT 12 L, Alkaline Phosphatase 36 L, Total Protein 6.1 L, Albumin 3.0 L, Globulin 3.1, Albumin/Globulin Ratio 1.0 04/29/23 11:40: Vitamin B12 428, Vitamin D 25-Hydroxy 19.5 04/29/23 11:40: Folate 16.20 Micro: Microbiology 04/29/23 01:47 Nasal Secretion SARS-CoV-2 & FLU Antigen (Rapid) - Final 04/29/23 02:05 Stool Stool Occult Blood (DEISY) - Final Occult Blood Positive ABG Data ABG results: ABG 04/29/23 04/29/23 04/29/23 02:46 05:27 05:36 Specimen Type UBALDO ART Cancelled Sample Site L Brach Cancelled pH 7.21 L Cancelled Bicarbonate Actual 47.9 H Cancelled Total CO2 > 50 Cancelled Base Excess 20 H Cancelled O2 Saturation 87 L Cancelled O2 % 40 Cancelled ABG pCO2 119.4 H* Cancelled ABG pO2 70 L Cancelled Eduardo Test Positive Cancelled VBG pH 7.25 L VBG pO2 46 H VBG HCO3 52 H VBG Total CO2 > 50 H VBG O2 Sat (Calc) 69 VBG Base Excess 25 H POC Mix VBG pCO2 Pt Tmp 118.7 H* Respiration Rate 14 Cancelled O2 Delivery Device Nasal Can BiPAP Cancelled Liter Flow 3.0 Cancelled Minute Volume Cancelled Vent Mode Cancelled Inspiratory Time Cancelled Expiratory Time Cancelled Tidal Volume 425 Cancelled Mean Airway Pressure Cancelled POC PEEP 8 Cancelled Peak Inspir Pressure Cancelled POC Pressure Suppt Cancelled Pressure Control Cancelled Pressure High Cancelled Pressure Low Cancelled Time High Cancelled Time Low Cancelled EPAP Cancelled IPAP Cancelled Blood Gas Comments Cancelled Crit Call To/Read Back Yes Yes Cancelled Blood Gas Notified Whom ED MD dr vences Cancelled Blood Gas Notified Time 0246 Cancelled Clinical Comments AVAPS 425 r14 40% +8 Cancelled Radiology Impression Brain CT 04/29/23 01:38 IMPRESSION: Chronic involutional and white matter changes. No evidence of acute intracranial abnormality. Electronically Signed: Mello Stahl MD at 3:42 EDT , Chest X-Ray 04/29/23 03:10 IMPRESSION: COPD and lung scarring with probable mild superimposed basilar atelectasis. Electronically Signed: Mello Stahl MD at 4:03 EDT , Assessment & Plan Assessment/Plan (1) Anemia: PLAN: Patient is severely iron deficient which is likely multifactorial. Differential diagnosis would include celiac disease, microcytic anemia secondary to slow GI bleed, microcytosis secondary to vitamin deficiencies, protein calorie malnutrition. She does have elevated BUN with a decreasing hemoglobin and should undergo an upper endoscopy for evaluation. However at this time she needs BiPAP and would not tolerate removing the BiPAP in order to do an endoscopic procedure. Recommend transfuse 1 unit of packed red blood cell continue PPI therapy and we will put her on for tomorrow in hopes that we will be able to get her off of the BiPAP. Charges/Coding Visit Charges Inpatient E&M: 64176 Init Hosp L2
[2023-04-30] VITALS (35 sets, daily range): BP systolic 100–167; BP diastolic 59–106; PULSE 57–97; RESP 14–46; TEMP 36.9–37.4; O2SAT 85–100; BMI 10.8
--- NOTE | 2023-04-30 | GASB_PTH ---
PATIENT: TIFFANY PETTIT LOC: [facility] U#:[id number] AGE/SX: 67/F ROOM: [facility] RE04/29/[address]: Dr. Mello Savage DO : 1955 BED: 1 DIS: 05/06/2023 SPEC #: [id number] RECD: 04/30/23 17:05 STATUS: RYAN REQ #: [id number] ANDERSON: 04/30/23 00:[address]: Tariq Chiang DEPT: SURGICAL PATHOLOGY RECD BY: Joshua Arnett ENTERED: 05/01/23 09:15 SP TYPE: Gastric Bx OTHR DR: MD Dr. Aashish Ward, MD Dr. Ahsan Ramey Dr., MD Dr. Mark Tereletsky, DO Dr. Paige Pierce, MD Dr. Tanmay Panchabhai, MD Christina Muller, .NET DEVELOPER-C Tissues: Gastric mucous membrane Procedures: Special Stain Group II Surgery Specimen Level IV Alcian Blue/PAS (control) Comments: @ Ordering doctor for SUIV edited from to @ by NAHUM at 05/01/23 0955 @ Submitting doctor edited from to @ by NAHUM at 05/01/23 0955 HEADER OPERATION: EGD with biopsy and bipolar electrohemostasis (MAC) PRE-OP DIAGNOSIS: Acute on chronic respiratory failure with hypoxia and hypercapnia; acute encephalopathy; anemia TISSUE SUBMITTED: Gastroesophageal junction submucosal mass MICROSCOPIC DIAGNOSIS Gastroesophageal junction mucosa, biopsy: Mild chronic inflammation. No evidence of goblet cell metaplasia. See comment. AM:harinder 05/02/2023 COMMENT Alcian blue/PAS stain with matched control supports the above diagnosis. MICROSCOPIC DESCRIPTION Slides are reviewed. GROSS DESCRIPTION Received in fixative is one container labeled with the patient's name and designated GE junction biopsy. The specimen consists of two irregular fragments of light chavez soft tissue that in aggregate measure 0.6 x 0.5 x 0.1 cm. The specimen is totally submitted in one cassette. / AM:harinder 05/01/2023 TC:3 CPT: 80643, 48022
[2023-04-30] MEDS: Ipratropium/Albuterol Sulfate 3 ML AMPUL.NEB INHALATION ×6 (03:35→23:08)
[2023-04-30 04:22] LABS: Absolute Lymphocyte Count 0.32 X10^3/uL (0.83-4.51); Absolute Neutrophil Count 2.7 X10^3/uL (2.0-7.7); Basophil# 0.01 X10^3/uL; Basophil% 0.3 % (0-1); Hematocrit 27.9 % (37-47); Hemoglobin 7.4 g/dL (12.0-15.0); Lymphocyte # 0.32 X10^3/ul (0.83-4.51); Lymphocyte % 9.6 % (19-41); Mean Corp Hgb Conc 26.5 g/dL (32-36); Mean Corpuscular Hgb 20.9 pg (27.0-32.0); Mean Corpuscular Volume 78.8 fL (81-99); Mean Platelet Vol. 9.7 fl (6.2-12.0); Monocyte# 0.27 X10^3/uL; Monocyte% 8.1 % (0-10); NRBC Flagged by Analyzer 0 % (0-5); Neutrophil % 80.8 % (47-70); POSITIVE DIFFERENTIAL YES; Platelet Count 125 K/mm3 (150-450); RBC Distribution Width CV 18.6 % (11.6-14.6); RBC Distribution Width SD 53.1 fl (35.1-43.9); Red Blood Count 3.54 M/mm3 (4.2-5.4); White Blood Count 3.3 K/mm3 (4.4-11.0)
[2023-04-30 04:24] LABS: Differential Indicated SCAN CRITERIA MET
[2023-04-30 04:37] LABS: AST(SGOT) 14 U/L (15-37); Alanine Aminotransfer ALT/SGPT 12 U/L (13-56); Albumin, Serum 3.1 g/dL (3.2-5.0); Alkaline Phosphatase 34 U/L (45-117); Anion Gap 5 (5-15); BUN 37 mg/dL (7-18); BUN/Creat Ratio 78.4 RATIO (10-20); Calcium,Total 8.5 mg/dL (8.5-10.1); Chloride 101 mmol/L (98-107); Creatinine, Serum 0.47 mg/dL (0.55-1.02); EST Glomerular Filtration Rate 139 mL/min (>60); Est Glom Filt Rate - Afr Amer 168 mL/min (>60); Estimated Creatinine Clearance 25.56 ml/min; Globulin 3.1 g/dL (2.2-4.2); Glucose 129 mg/dL (74-106); Potassium 3.6 mmol/L (3.5-5.1); Protein, Total 6.2 g/dL (6.4-8.2); Sodium Level 143 mmol/L (136-145)
[2023-04-30 04:48] LABS: Differential Comment SCANNED; Hypochromasia 2+
[2023-04-30] MEDS: 0.9% Saline Lock 10 ML Syringe IV ×2 (05:22→20:24)
[2023-04-30] MEDS: Methylprednisolone Sod Succ 40 MG/ML VIAL IV ×3 (05:22→20:22)
--- NOTE | 2023-04-30 07:04 | PCM.PN.HOSP ---
Reason for Visit Reason for Visit: Diagnoses Anemia, unspecified (04/29/23) Encephalopathy, unspecified (04/29/23) Acute and chronic respiratory failure with hypoxia (04/29/23) Acute and chronic respiratory failure with hypercapnia (04/29/23) Subjective Subjective Patient sitting up in bed, resting comfortably, respiratory status improved, for EGD this a.m. Objective Data Objective Data Vital Signs: Vital Signs Temp Pulse Resp BP Pulse Ox O2 Del Method O2 Flow Rate 98.5 F 71 26 H 144/83 H 97 Bi-pap 6 04/30/23 04:00 04/30/23 06:59 04/30/23 06:59 04/30/23 06:00 04/30/23 06:59 04/30/23 06:00 04/29/23 01:41 FiO2 30 04/30/23 06:59 Oxygen Flow Rate (L/min) 6 Oxygen Delivery Method Bi-pap Weight: 30.5 kg Body Mass Index (BMI) 10.8 Intake & Output: Intake and Output for Last 24 Hours 04/28/23 04/29/23 04/30/23 23:59 23:59 23:59 Intake Total 1585 / 1585 30 / 30 Output Total 200 / 400 300 / 300 Balance 1385 / 1185 -270 / -270 Medical Nutrition Assessment Dietitian: Malnutrition Criteria Met Start: 04/29/23 12:29 Freq: Status: Active Protocol: Document 04/29/23 12:29 [facility] (Rec: 04/29/23 12:30 [facility] [id number]) Nutrition Malnutrition Evidence of Malnutrition Exists Yes Malnutrition (severe): Chronic Evidenced By Suboptimal Energy Intake ( Severe),Weight Loss (Severe), Physical Changes (Severe) Clinical Problem Chronic Disease or Condition Related Malnutrition Etiology SEVERE related to inadequate energy intake and cachexia Signs/Symptoms as evidenced by BMI 10.5 w/ UBW 34.1 kg for past 15 years , po intake <75% if estimated nutritional needs and obvious fat/muscle wasting in face, torso and extremities Status Active Problem Recommendation Dietitian Recommendations/Changes As medically able, rec ERIN to Regular w/ 4 oz ensure plus high protein 3x/day w/ medpass If NPO duration expected prolonged, res nutrition support to help prevent decline in pt nutritional status Pt at HIGH RISK of REFEEDING SYNDROME - monitor for changes in nutritional status Lab / Micro Data Result Diagrams: 04/30/23 04:13 04/30/23 04:13 Labs: Laboratory Results - last 24 hr 04/29/23 08:00: WBC 7.4, RBC 3.60 L, Hgb 7.5 L, Hct 31.1 L, MCV 86.4, MCH 20.8 L, MCHC 24.1 L, RDW Std Deviation 58.6 H, RDW Coeff of Marie 18.4 H, Plt Count 109 L, MPV 10.3, Immature Gran % (Auto) 2.400 H, Neut % (Auto) 81.9 H, Lymph % (Auto) 6.0 L, [place] % (Auto) 9.3, Eos % (Auto) 0.0, Baso % (Auto) 0.4, Absolute Neuts (auto) 6.0, Absolute Lymphs (auto) 0.44 L, Nucleated RBC % 0.4, Differential Comment COMMENT 04/29/23 11:40: Sodium 141, Potassium 4.5, Chloride 96 L, Carbon Dioxide > 45.0 H*, Anion Gap TNP, BUN 35 H, Creatinine 0.52 L, Estim Creat Clear Calc 24.81, Est GFR (MDRD) Af Amer 152, Est GFR (MDRD) Non-Af 125, BUN/Creatinine Ratio 68.0 H, Glucose 203 H, Calcium 8.4 L, Total Bilirubin 0.60, AST 13 L, ALT 12 L, Alkaline Phosphatase 36 L, Total Protein 6.1 L, Albumin 3.0 L, Globulin 3.1, Albumin/Globulin Ratio 1.0 04/29/23 11:40: Vitamin B12 428, Vitamin D 25-Hydroxy 19.5 04/29/23 11:40: Folate 16.20 04/30/23 04:13: WBC 3.3 L, RBC 3.54 L, Hgb 7.4 L, Hct 27.9 L, MCV 78.8 L D, MCH 20.9 L, MCHC 26.5 L D, RDW Std Deviation 53.1 H, RDW Coeff of Marie 18.6 H, Plt Count 125 L, MPV 9.7, Immature Gran % (Auto) 1.200 H, Neut % (Auto) 80.8 H, Lymph % (Auto) 9.6 L, [place] % (Auto) 8.1, Eos % (Auto) 0.0, Baso % (Auto) 0.3, Absolute Neuts (auto) 2.7, Absolute Lymphs (auto) 0.32 L, Nucleated RBC % 0, Differential Comment SCANNED, Diff Path Review May foll, Hypochromasia 2+ 04/30/23 04:13: Sodium 143, Potassium 3.6, Chloride 101, Carbon Dioxide 37.0 H, Anion Gap 5, BUN 37 H, Creatinine 0.47 L, Estim Creat Clear Calc 25.56, Est GFR (MDRD) Af Amer 168, Est GFR (MDRD) Non-Af 139, BUN/Creatinine Ratio 78.4 H, Glucose 129 H, Calcium 8.5, Total Bilirubin 0.60, AST 14 L, ALT 12 L, Alkaline Phosphatase 34 L, Total Protein 6.2 L, Albumin 3.1 L, Globulin 3.1, Albumin/Globulin Ratio 1.0 Micro: Microbiology 04/29/23 14:15 Mucosa - Nasopharyngeal Respiratory Panel (PCR) - Final 04/29/23 01:47 Nasal Secretion SARS-CoV-2 & FLU Antigen (Rapid) - Final 04/29/23 02:05 Stool Stool Occult Blood (DEISY) - Final Occult Blood Positive Physical Exam Narrative General: Alert, oriented, no apparent distress, very thin HEENT: Atraumatic, normocephalic Eyes: Anicteric, normal conjunctiva, extraocular movements grossly intact Neck: Supple Respiratory: No wheezes or rhonchi, normal respiratory effort Cardiovascular: Regular rate and rhythm GI: Soft, nontender, nondistended Extremities: No edema Musculoskeletal: Moving all extremities Neuro: No overt focal neurological deficits Skin: No rashes appreciated Psych: Cooperative Assessment & Plan Assessment/Plan (1) Acute on chronic respiratory failure with hypoxia and hypercapnia: PLAN: Plan #Acute metabolic encephalopathy secondary to acute on chronic hypoxic hypercapnic respiratory failure with history of severe chronic COPD on home 2L O2 -Was noted to be 56% O2 sat on room air prior to arrival and was placed on nonrebreather -Chest x-ray with no acute process or pneumonia is appreciated -VBG obtained in ED due to inability to get ABG secondary to hard stick with a pH of 7.25, PCO2 of 119 and PO2 of 46 -She was alert on nasal cannula 6 L in ED but had been transitioned to BiPAP prior to CT after VBG results obtained -Admitted to ICU with pr intern consult -Nebs, inhaled steroids but inhaled steroids changed to IV Methylpred -COVID-negative, will obtain respiratory panel given unclear precipitating cause and will order sputum culture in the event patient unable to produce any sputum -White blood cell count within normal limits but does appear to have left shift, blood cultures obtained, possibly reactive, patient afebrile, patient was started on azithromycin however due to current clinical picture -Repeat blood gas in the a.m. was ABG demonstrated PO2 of 70, O2 sat 97% with a PCO2 of 119.4 -Did have CT head in the ED due to altered mental status which was unrevealing for acute cause, demonstrated chronic abnormalities but again suspect this is more due to hypoxia and hypercapnia -04/30: Reamined on bipap overnight, Bicarb on BMP 37. Respiratory panel negative, remains on DuoNebs every 4 and IV Methylpred As well as azithromycin. 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 Repeat hemoglobin was down to 7.5 yesterday, discussed with GI and they recommended EGD however patient dependent on BiPAP and was unable to be performed yesterday. GI recommended transfuse 1 unit packed red blood cells, 1 unit packed red blood cells ordered per GI recommendation. Today hemoglobin 7.4, no significant further drop however given presentation would benefit from endoscopy. 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 #severe protein and caloric malnutrition -Patient BMI listed is 10.5 kg/m? -To be seen by nutrition #Hypertension -Continue present management #History of kidney stones -Supportive care #DVT ppx: On Heparin subcu Annika Schmitz MD Time spent in the patient's overall evaluation,decision-making process, review of diagnostic data, adjustment of management, discussion with other providers, nursing nursing and ancillary staff involved in patient's care documentation, 36 minutes Charges/Coding Visit Charges Inpatient E&M: 41166 Subs Hosp L3
[2023-04-30] MEDS: Heparin Injection (Vial) 5,000 UNIT/ML VIAL 5000 UNIT SC ×2 (07:37→20:24)
[2023-04-30] MEDS: Carvedilol 12.5 MG Tablet PO ×2 (07:37→17:24)
--- NOTE | 2023-04-30 08:17 | PN.CC_ITS ---
Assessment & Plan Assessment/Plan (1) Acute on chronic respiratory failure with hypoxia and hypercapnia: (2) Acute encephalopathy: (3) Anemia: PLAN: Plan RECOMMENDATIONS: 1. Continue IV steroids and bronchodilators 2. Attempt BiPAP breaks during the day 3. Continue BiPAP for now pending family discussion on goals of therapy 4. Agree with high-dose PPI with EGD when able 5. Keep oxygen saturations between 90 and 94% 6. Transfusion for hemoglobin less than 7 IMPRESSIONS: 1. Acute on chronic combined respiratory failure Unclear etiology. Patient does have very severe COPD at baseline with an FEV1 of 29% in 2019. Viral panel was negative. Chest x-ray does not show any obvious infiltrates, but given the amount of hyperinflation patient has, infiltrates can be difficult to assess. We will continue IV steroids and bronchodilators. We will attempt BiPAP breaks during the day, but patient will need BiPAP with sleep. If intubated, patient's ability to be liberated from the ventilator is severely limited given her metabolic reserve, advanced lung disease and unclear etiology. We will place patient on 5 days of azithromycin empirically. 2. Severe protein calorie malnutrition Patient has not had imaging studies in several years. However, given patient's advanced lung disease, pulmonary cachexia would be suspected. Patient may develop refeeding syndrome with nutritional supplementation. Dietitian following. P.o. intake has been limited secondary to BiPAP 3. Anemia Patient with a significant drop in hemoglobin since last check. Patient does have vitamin D deficiency in addition to iron deficiency. Patient did get a unit of packed red blood cells yesterday, but hemoglobin remained stable indicating ongoing blood loss. We will attempt BiPAP breaks during the day today. If able to tolerate, could consider EGD for evaluation. Patient may also have an element of villous atrophy leading to malnourishment and malabsorption syndrome. 4. Essential hypertension/concern for self neglect/history of aspergilloma/history of kidney stones Complicates care, management, recovery and prognosis. Patient is guaiac positive, so slow GI bleed would be a consideration. Malignancy also cannot be excluded. Patient reportedly is unable to get out of bed, but continues to live independently. Social work will follow patient. Cannot exclude the need for ECF if patient continues to be aggressive. Addendum 3:39 PM: Asked by GI to provide conscious sedation for EGD. Please see nursing documentation for exact times. Timeout procedure was completed. Patient was given a total of 70 mg, in divided doses, of propofol to facilitate EGD. EGD showed 2 angiodysplastic lesions that were cauterized. Patient also had a possible mass in the distal esophagus that was biopsied and cauterized. Patient did not have any significant desaturation during the procedure, but in the recovery phase was placed on BiPAP therapy for 1 hour and tolerated this well. TIME: 43 minutes critical care time spent addressing patient's respiratory failure, malnutrition, anemia, review of all data and collaboration with care team Subjective Subjective Patient did okay overnight from a hemodynamic standpoint. Patient did take a break off of BiPAP for approximately an hour and tolerated this well. Patient feels comfortable on BiPAP and is answering appropriately. Patient was seen by GI, but no intervention was planned given BiPAP dependency Objective Data Objective Data Vital Signs: Vital Signs Temp Pulse Resp BP Pulse Ox O2 Del Method O2 Flow Rate 37.4 C H 81 36 H 158/106 H 94 Nasal Cannula 3 04/30/23 08:00 04/30/23 08:00 04/30/23 08:00 04/30/23 08:00 04/30/23 08:00 04/30/23 08:00 04/30/23 08:00 FiO2 30 04/30/23 07:00 Oxygen Flow Rate (L/min) 3 Oxygen Delivery Method Nasal Cannula Weight: 30.5 kg Body Mass Index (BMI) 10.8 Intake & Output: Intake and Output for Last 24 Hours 04/28/23 04/29/23 04/30/23 23:59 23:59 23:59 Intake Total 1585 / 1585 30 / 30 Output Total 200 / 400 300 / 300 Balance 1385 / 1185 -270 / -270 Medical Nutrition Assessment Dietitian: Malnutrition Criteria Met Start: 04/29/23 12:29 Freq: Status: Active Protocol: Document 04/29/23 12:29 MACRINA (Rec: 04/29/23 12:30 MACRINA [id number]) Nutrition Malnutrition Evidence of Malnutrition Exists Yes Malnutrition (severe): Chronic Evidenced By Suboptimal Energy Intake ( Severe),Weight Loss (Severe), Physical Changes (Severe) Clinical Problem Chronic Disease or Condition Related Malnutrition Etiology SEVERE related to inadequate energy intake and cachexia Signs/Symptoms as evidenced by BMI 10.5 w/ UBW 34.1 kg for past 15 years , po intake <75% if estimated nutritional needs and obvious fat/muscle wasting in face, torso and extremities Status Active Problem Recommendation Dietitian Recommendations/Changes As medically able, rec ERIN to Regular w/ 4 oz ensure plus high protein 3x/day w/ medpass If NPO duration expected prolonged, res nutrition support to help prevent decline in pt nutritional status Pt at HIGH RISK of REFEEDING SYNDROME - monitor for changes in nutritional status Lab / Micro Data Attestation: I reviewed the patient's lab results. Result Diagrams: 04/30/23 04:13 04/30/23 04:13 Labs: Laboratory Results - last 24 hr 04/29/23 08:00: Differential Comment COMMENT 04/29/23 11:40: Sodium 141, Potassium 4.5, Chloride 96 L, Carbon Dioxide > 45.0 H*, Anion Gap TNP, BUN 35 H, Creatinine 0.52 L, Estim Creat Clear Calc 24.81, Est GFR (MDRD) Af Amer 152, Est GFR (MDRD) Non-Af 125, BUN/Creatinine Ratio 68.0 H, Glucose 203 H, Calcium 8.4 L, Total Bilirubin 0.60, AST 13 L, ALT 12 L, Alkaline Phosphatase 36 L, Total Protein 6.1 L, Albumin 3.0 L, Globulin 3.1, Albumin/Globulin Ratio 1.0 04/29/23 11:40: Vitamin B12 428, Vitamin D 25-Hydroxy 19.5 04/29/23 11:40: Folate 16.20 04/30/23 04:13: WBC 3.3 L, RBC 3.54 L, Hgb 7.4 L, Hct 27.9 L, MCV 78.8 L D, MCH 20.9 L, MCHC 26.5 L D, RDW Std Deviation 53.1 H, RDW Coeff of Marie 18.6 H, Plt Count 125 L, MPV 9.7, Immature Gran % (Auto) 1.200 H, Neut % (Auto) 80.8 H, Lymp h % (Auto) 9.6 L, Mchenry % (Auto) 8.1, Eos % (Auto) 0.0, Baso % (Auto) 0.3, Absolute Neuts (auto) 2.7, Absolute Lymphs (auto) 0.32 L, Nucleated RBC % 0, Differential Comment SCANNED, Diff Path Review May foll, Hypochromasia 2+ 04/30/23 04:13: Sodium 143, Potassium 3.6, Chloride 101, Carbon Dioxide 37.0 H, Anion Gap 5, BUN 37 H, Creatinine 0.47 L, Estim Creat Clear Calc 25.56, Est GFR (MDRD) Af Amer 168, Est GFR (MDRD) Non-Af 139, BUN/Creatinine Ratio 78.4 H, Glucose 129 H, Calcium 8.5, Total Bilirubin 0.60, AST 14 L, ALT 12 L, Alkaline Phosphatase 34 L, Total Protein 6.2 L, Albumin 3.1 L, Globulin 3.1, Album in/Globulin Ratio 1.0 04/30/23 07:05: Crossmatch See Detail Micro: Microbiology 04/29/23 14:15 Mucosa - Nasopharyngeal Respiratory Panel (PCR) - Final 04/29/23 01:47 Nasal Secretion SARS-CoV-2 & FLU Antigen (Rapid) - Final 04/29/23 02:05 Stool Stool Occult Blood (DEISY) - Final Occult Blood Positive Physical Exam Const alert and oriented x3 Constitutional Narrative: Patient appears older than her stated age. General Appearance: cooperative HEENT normocephalic, head/scalp atraumatic and hearing grossly normal bilaterally HEENT Narrative: Significant temporal wasting Eyes PERRL, EOMs intact bilaterally and conjunctivae normal Neck supple, no JVD, thyroid normal and no carotid bruits General: trachea midline Chest Chest: abnormal inspection of the chest increased A-P diameter Resp Resp Narrative: Breath sounds are distant bilaterally. Good BiPAP synchrony. Auscultation: wheezes and diminished lung sounds; Negative for rales or rhonchi Cardio regular rate, regular rhythm, S1 normal heart sound, S2 normal heart sound, no murmurs, no rub and no gallops GI normal to inspection, nondistended, normoactive bowel sounds, soft to palpation, non-tender and non-distended Extremity no clubbing, cyanosis or edema Skin no rashes or lesions noted General Skin Exam: no breakdown Neuro CN's II-XII intact bilaterally, moves all extremities, no focal motor deficits and no sensory deficits noted Psych Psych Narrative: Patient is a poor informant, she is oriented as to person place and year Mood & Affect: labile affect Charges/Coding Procedures Hospitalists Procedures: 05720 Critial Care 1st Hr
[2023-04-30 12:22] LABS: Pathologist Review Reviewed
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
--- NOTE | 2023-04-30 14:25 | CASEMGMT ---
Addendum entered by Eloina Bender 04/30/23 16:03: TC to [facility], pt does not have oxygen through their company per Cassie. Original Note: ANGELINE BISHOP Assessment: Face to Face with pt for initial transition planning/care coordination assessment. RN EDNA introduced self and role at [facility], pt voices understanding and consents to assessment. Pt is A/O x4 and answers all questions appropriately at this time. Pt on bipap at this time. Care providers, pharmacy, and demographics verified/updated. Admitting Dx: acute on chronic combined respiratory failure PCP:Marilyn Specialists:zechariah Del Castillo Preferred Pharmacy: [facility] Insurance: My Care CRS, CRSC Prescription Benefit: yes LNOK: Gerard Castellanoser, brother; Angel Jack, son Living Arrangements: Pt lives alone in a single story home with no steps to enter. Pt reports she was I in ADL's prior to this hospital stay. Transportation: Pt drives self and denies concerns with transportation. DME/HHC/SNF: Pt has a pox, oxygen through [employer] at [employer]. Will call to verify. Pt does have portable tanks. Pt denies hx of HHC and has been to [facility]. Pt states she would like to go to [place] at [place]. Made pt aware that typically this is not arranged during a hospital stay. She states she does not want to go home. She feels she may need more care. Updated JAMAAL and ANGELINE BISHOP to follow. Pt states no further concerns/needs. Advised pt to ask CM if any further question/concerns/needs arise, voices understanding. Pt Goal: SNF Plan: TBD pending therapy and course of hospitalization
--- NOTE | 2023-04-30 14:48 | CASEMGMT ---
JAMAAL called [facility] and patient's shoe parts caser is Martha Becerra ([phone]). Patient gets 5 meals a week delivered and she has a medical alert button. JAMAAL attempted 2 times to call Martha but there was no answer and no option to leave a voice mail. Tawnya Contreras BIRD RAISER RENE
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
--- NOTE | 2023-04-30 16:03 | OP.EGD_ITS ---
Patient Name: Whitney Jack Procedure Date: 04/30/2023 1:46 PM Date of : 1955 Age: 67 Procedure: Upper GI endoscopy Indications: Iron deficiency anemia Providers: Tariq Chiang DO Referring MD: Mello Savage Medicines: Propofol total dose 40 mg IV Patient Profile: This is a 67 year old female. Refer to note in patient chart for documentation of history and physical. Patient has symptoms of chronic abdominal cramping. Complications: No immediate complications. Procedure: Pre-Anesthesia Assessment: - Prior to the procedure, a History and Physical was performed, and patient medications and allergies were reviewed. The patient is competent. The risks and benefits of the procedure and the sedation options and risks were discussed with the patient. All questions were answered and informed consent was obtained. Patient identification and proposed procedure were verified by the physician in the pre-procedure area. Mental Status Examination: alert and oriented. Prophylactic Antibiotics: The patient does not require prophylactic antibiotics. Prior Anticoagulants: The patient has taken no previous anticoagulant or antiplatelet agents. ASA Grade Assessment: III - A patient with severe systemic disease. After reviewing the risks and benefits, the patient was deemed in satisfactory condition to undergo the procedure. The anesthesia plan was to use moderate sedation / analgesia (conscious sedation). Immediately prior to administration of medications, the patient was re-assessed for adequacy to receive sedatives. The heart rate, respiratory rate, oxygen saturations, blood pressure, adequacy of pulmonary ventilation, and response to care were monitored throughout the procedure. The physical status of the patient was re-assessed after the procedure. After obtaining informed consent, the endoscope was passed under direct vision. Throughout the procedure, the patient's blood pressure, pulse, and oxygen saturations were monitored continuously. The Endoscope was introduced through the mouth, and advanced to the second part of duodenum. The upper GI endoscopy was accomplished without difficulty. The patient tolerated the procedure well. Moderate Sedation: Moderate (conscious) sedation was personally administered by an anesthesia professional. The following parameters were monitored: oxygen saturation, heart rate, blood pressure, respiratory rate, EKG, adequacy of pulmonary ventilation, and response to care. Total physician intraservice time was 15 minutes. Scope In: 1:50:40 PM Scope Out: 2:01:18 PM Total Procedure Duration Time 0 hours 10 minutes 38 seconds Findings: The examined esophagus was normal. A small, submucosal mass with no bleeding and stigmata of recent bleeding was found at the gastroesophageal junction, 38 cm from the incisors. The mass was non-obstructing. Biopsies were taken with a cold forceps for histology. Verification of patient identification for the specimen was done. Estimated blood loss was minimal. Coagulation for hemostasis using monopolar probe was successful. Estimated blood loss was minimal. A few 5 mm bleeding angiodysplastic lesions were found in the gastric body. Coagulation for hemostasis using monopolar probe was successful. A single 5 mm angiodysplastic lesion with bleeding was found in the duodenal bulb. Coagulation for hemostasis using heater probe was successful. Estimated blood loss was minimal. Impression: - Normal esophagus. 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 Biopsied. Treated with a monopolar probe. - A few bleeding angiodysplastic lesions in the stomach. Treated with a monopolar probe. - A single bleeding angiodysplastic lesion in the duodenum. Treated with a heater probe. Recommendation: - Return patient to ICU for ongoing care. - Resume previous diet. - Continue present medications. - Await pathology results. Procedure Code(s): --- Professional --- 17453, 59, Esophagogastroduodenoscopy, flexible, transoral; with control of bleeding, any method 90118, Esophagogastroduodenoscopy, flexible, transoral; with biopsy, single or multiple CPT copyright 2017 [employer]. All rights reserved. The codes documented in this report are preliminary and upon tooth polisher review may be revised to meet current compliance requirements. Tariq Chiang DO 04/30/2023 4:02:54 PM This report has been signed electronically. Number of Addenda: 0 Note Initiated On: 04/30/2023 1:46 PM
--- NOTE | 2023-04-30 16:04 | OP.CCLET_ITS ---
04/30/2023 Yaya Sanders MD [address] [place] [address] [place] [address] Re : Upper GI endoscopy procedure for [facility] Dear Dr. Sanders This procedure was performed on Sunday, April 30, 2023. My impressions and recommendations are as follows: Impressions : - Normal esophagus. 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 Biopsied. Treated with a monopolar probe. - A few bleeding angiodysplastic lesions in the stomach. Treated with a monopolar probe. - A single bleeding angiodysplastic lesion in the duodenum. Treated with a heater probe. Recommendations : - Return patient to ICU for ongoing care. - Resume previous diet. - Continue present medications. - Await pathology results. My findings are described in the full procedure note, which is enclosed. If I can be of further assistance, please feel free to contact me at . Sincerely, Tariq Chiang, 04/30/2023 4:02:54 PM This report has been signed electronically.
[2023-04-30] MEDS: Acetaminophen 325 MG Tablet 650 MG PO (20:21)
[2023-05-01] VITALS (25 sets, daily range): BP systolic 86–127; BP diastolic 52–79; PULSE 66–89; RESP 14–37; TEMP 36.6–37.1; O2SAT 90–99; BMI 11.0
[2023-05-01] MEDS: Ipratropium/Albuterol Sulfate 3 ML AMPUL.NEB INHALATION ×6 (02:08→22:47)
[2023-05-01 03:29] LABS: Absolute Neutrophil Count 14.1 X10^3/uL (2.0-7.7); Basophil# 0.02 X10^3/uL; Basophil% 0.1 % (0-1); Hematocrit 36.5 % (37-47); Hemoglobin 9.8 g/dL (12.0-15.0); Lymphocyte % 1.3 % (19-41); Mean Corp Hgb Conc 26.8 g/dL (32-36); Mean Corpuscular Hgb 22.5 pg (27.0-32.0); Mean Corpuscular Volume 83.7 fL (81-99); Mean Platelet Vol. 10.6 fl (6.2-12.0); Monocyte# 0.64 X10^3/uL; Monocyte% 4.2 % (0-10); NRBC Flagged by Analyzer 0.1 % (0-5); Neutrophil # 14.11 X10^3/uL (2.7-7.7); Neutrophil % 93.4 % (47-70); POSITIVE DIFFERENTIAL YES; Platelet Count 113 K/mm3 (150-450); RBC Distribution Width CV 18.1 % (11.6-14.6); RBC Distribution Width SD 55.1 fl (35.1-43.9); Red Blood Count 4.36 M/mm3 (4.2-5.4); White Blood Count 15.1 K/mm3 (4.4-11.0)
[2023-05-01 03:31] LABS: Differential Indicated SCAN CRITERIA MET
[2023-05-01 03:57] LABS: AST(SGOT) 17 U/L (15-37); Alanine Aminotransfer ALT/SGPT 11 U/L (13-56); Albumin, Serum 2.4 g/dL (3.2-5.0); Alkaline Phosphatase 26 U/L (45-117); Anion Gap 0 (5-15); BUN 31 mg/dL (7-18); BUN/Creat Ratio 109.9 RATIO (10-20); Calcium,Total 6.6 mg/dL (8.5-10.1); Chloride 112 mmol/L (98-107); Creatinine, Serum 0.28 mg/dL (0.55-1.02); EST Glomerular Filtration Rate 251 mL/min (>60); Est Glom Filt Rate - Afr Amer 304 mL/min (>60); Estimated Creatinine Clearance 25.56 ml/min; Globulin 2.4 g/dL (2.2-4.2); Glucose 131 mg/dL (74-106); Potassium 3.2 mmol/L (3.5-5.1); Protein, Total 4.8 g/dL (6.4-8.2); Sodium Level 148 mmol/L (136-145)
[2023-05-01 04:08] LABS: Phosphorus 2.7 mg/dL (2.5-4.9)
[2023-05-01 05:01] LABS: Differential Comment SCANNED; Hypochromasia RARE
[2023-05-01] MEDS: CHLORHEXIDINE GLUC 2% CLOTH 1 EACH TOWELETTE TOPICAL (05:45)
[2023-05-01] MEDS: Methylprednisolone Sod Succ 40 MG/ML VIAL IV ×2 (05:45→22:06)
[2023-05-01] MEDS: 0.9% Saline Lock 10 ML Syringe IV ×2 (05:45→22:07)
--- NOTE | 2023-05-01 07:12 | PCM.PN.HOSP ---
Reason for Visit Reason for Visit: Diagnoses Anemia, unspecified (04/29/23) Encephalopathy, unspecified (04/29/23) Acute and chronic respiratory failure with hypoxia (04/29/23) Acute and chronic respiratory failure with hypercapnia (04/29/23) Subjective Subjective Patient sitting up in bed, no acute distress, off BiPAP and eating breakfast. Feeling better overall Objective Data Objective Data Vital Signs: Vital Signs Temp Pulse Resp BP Pulse Ox O2 Del Method O2 Flow Rate 98.1 F 67 21 H 96/52 L 94 Bi-pap 6 05/01/23 04:00 05/01/23 07:03 05/01/23 07:03 05/01/23 07:00 05/01/23 07:03 05/01/23 07:03 04/30/23 22:00 FiO2 45 05/01/23 07:03 Oxygen Flow Rate (L/min) 6 Oxygen Delivery Method Bi-pap Weight: 31.2 kg Body Mass Index (BMI) 11.0 Intake & Output: Intake and Output for Last 24 Hours 04/29/23 04/30/23 05/01/23 23:59 23:59 23:59 Intake Total 1585 / 1585 905 / 965 60 / 60 Output Total 200 / 400 1150 / 1150 Balance 1385 / 1185 -245 / -185 60 / 60 Medical Nutrition Assessment Dietitian: Malnutrition Criteria Met Start: 04/29/23 12:29 Freq: Status: Active Protocol: Document 04/30/23 11:13 LO (Rec: 04/30/23 11:13 LO [id number]) Nutrition Malnutrition Evidence of Malnutrition Exists Yes Malnutrition (severe): Chronic Evidenced By Suboptimal Energy Intake ( Severe),Weight Loss (Severe), Physical Changes (Severe) Clinical Problem Chronic Disease or Condition Related Malnutrition Etiology SEVERE related to inadequate energy intake and COPD Signs/Symptoms as evidenced by PO intake <75% if estimated nutritional needs for >1 month and severe fat/muscle wasting to orbital, temporal, buccal, and clavicle regions Status Active Problem Recommendation Dietitian Recommendations/Changes As medically able, rec ERIN to Regular w/ 4 oz ensure plus high protein 3x/day w/ medpass RD would recommend enteral nutrition to help with weight gain due to severe malnutrition if it aligns with pt and familys wishes. Pt at HIGH RISK of REFEEDING SYNDROME - monitor for changes in nutritional status Lab / Micro Data Result Diagrams: 05/01/23 03:20 05/01/23 03:20 Labs: Laboratory Results - last 24 hr 04/30/23 04:13: Diff Path Review Reviewed 04/30/23 07:05: Blood Type O POSITIVE, Antibody Screen POSITIVE, Antibody Identification ANTI-S, Crossmatch See Detail 05/01/23 03:20: WBC 15.1 H, RBC 4.36, Hgb 9.8 L, Hct 36.5 L, MCV 83.7 D, MCH 22.5 L, MCHC 26.8 L, RDW Std Deviation 55.1 H, RDW Coeff of Marie 18.1 H, Plt Count 113 L, MPV 10.6, Immature Gran % (Auto) 1.000 H, Neut % (Auto) 93.4 H, Lymph % (Auto) 1.3 L, [place] % (Auto) 4.2, Eos % (Auto) 0.0, Baso % (Auto) 0.1, Absolute Neuts (auto) 14.1 H, Absolute Lymphs (auto) 0.20 L, Nucleated RBC % 0.1, Differential Comment SCANNED, Hypochromasia RARE 05/01/23 03:20: Sodium 148 H, Potassium 3.2 L, Chloride 112 H, Carbon Dioxide 36.0 H, Anion Gap 0 L, BUN 31 H, Creatinine 0.28 L, Estim Creat Clear Calc 25.56, Est GFR (MDRD) Af Amer 304, Est GFR (MDRD) Non-Af 251, BUN/Creatinine Ratio 109.9 H, Glucose 131 H, Calcium 6.6 L, Magnesium 2.0, Total Bilirubin 0.70, AST 17, ALT 11 L, Alkaline Phosphatase 26 L, Total Protein 4.8 L, Albumin 2.4 L, Globulin 2.4, Albumin/Globulin Ratio 1.0 05/01/23 03:20: Phosphorus 2.7 Micro: Microbiology 04/29/23 01:45 Urine Catheter - Catheter Urine Culture - Preliminary Gram Positive Cocci 04/29/23 14:15 Mucosa - Nasopharyngeal Respiratory Panel (PCR) - Final 04/29/23 01:47 Nasal Secretion SARS-CoV-2 & FLU Antigen (Rapid) - Final 04/29/23 02:05 Stool Stool Occult Blood (DEISY) - Final Occult Blood Positive Physical Exam Narrative General: Alert, oriented, no apparent distress, very thin HEENT: Atraumatic, normocephalic Eyes: Anicteric, normal conjunctiva, extraocular movements grossly intact Neck: Supple Respiratory: Diminished somewhat throughout, but normal respiratory effort Cardiovascular: Regular rate and rhythm GI: Soft, nontender, nondistended Extremities: No edema Musculoskeletal: Moving all extremities Neuro: No overt focal neurological deficits Skin: No rashes appreciated Psych: Cooperative Assessment & Plan Assessment/Plan (1) Acute on chronic respiratory failure with hypoxia and hypercapnia: PLAN: Plan #Acute metabolic encephalopathy secondary to acute on chronic hypoxic hypercapnic respiratory failure with history of severe chronic COPD on home 2L O2 -Was noted to be 56% O2 sat on room air prior to arrival and was placed on nonrebreather -Chest x-ray with no acute process or pneumonia is appreciated -VBG obtained in ED due to inability to get ABG secondary to hard stick with a pH of 7.25, PCO2 of 119 and PO2 of 46 -She was alert on nasal cannula 6 L in ED but had been transitioned to BiPAP prior to CT after VBG results obtained -Admitted to ICU with accounts adjustable clerk consult -Nebs, inhaled steroids but inhaled steroids changed to IV Methylpred -COVID-negative, will obtain respiratory panel given unclear precipitating cause and will order sputum culture in the event patient unable to produce any sputum -White blood cell count within normal limits but does appear to have left shift, blood cultures obtained, possibly reactive, patient afebrile, patient was started on azithromycin however due to current clinical picture -Repeat blood gas in the a.m. was ABG demonstrated PO2 of 70, O2 sat 97% with a PCO2 of 119.4 -Did have CT head in the ED due to altered mental status which was unrevealing for acute cause, demonstrated chronic abnormalities but again suspect this is more due to hypoxia and hypercapnia -04/30: Reamined on bipap overnight, Bicarb on BMP 37. Respiratory panel negative, remains on DuoNebs every 4 and IV Methylpred As well as azithromycin. Respiratory status was much better this a.m., after EGD did require BiPAP to improve sats but was responding well -05/01: Acute metabolic encephalopathy resolved, continues to have BiPAP needs, remained in ICU overnight. 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 Repeat hemoglobin was down to 7.5 yesterday, discussed with GI and they recommended EGD however patient dependent on BiPAP and was unable to be performed yesterday. GI recommended transfuse 1 unit packed red blood cells, 1 unit packed red blood cells ordered per GI recommendation. Today hemoglobin 7.4, no significant further drop however given presentation would benefit from endoscopy. 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 -05/01: Hemoglobin 9.8 today #severe protein and caloric malnutrition -Patient BMI listed is 10.5 kg/m? -To be seen by nutrition #Abn urine culture -Urine cx grew aerococcus but only 25,000-50,000 colonies and UA was fairly unremarkable so unclear clinical significance -Has been afebrile, overall improving, blood cultures negative -If any fevers or development of symptoms we will treat but do not feel this needs treated #Hypertension -Continue present management #History of kidney stones -Supportive care #DVT ppx: On Heparin subcu Annika Schmitz MD Time spent in the patient's overall evaluation,decision-making process, review of diagnostic data, adjustment of management, discussion with other providers, nursing nursing and ancillary staff involved in patient's care documentation, 36 minutes Charges/Coding Visit Charges Inpatient E&M: [address] [facility] Hosp L3
--- NOTE | 2023-05-01 07:41 | PN.CC_ITS ---
Assessment & Plan Assessment/Plan (1) Acute on chronic respiratory failure with hypoxia and hypercapnia: (2) Acute encephalopathy: (3) Anemia: PLAN: Plan RECOMMENDATIONS: 1. Wean IV steroids and continue bronchodilators 2. Continue BiPAP breaks during the day 3. Continue BiPAP for now pending family discussion on goals of therapy 4. Likely okay to go to the floor later today 5. Keep oxygen saturations between 90 and 94% 6. Transfusion for hemoglobin less than 7 IMPRESSIONS: 1. Acute on chronic combined respiratory failure Unclear etiology. Patient does have very severe COPD at baseline with an FEV1 of 29% in 2019. Viral panel was negative. Chest x-ray does not show any obvious infiltrates, but given the amount of hyperinflation patient has, infiltrates can be difficult to assess. We will wean IV steroids and continue bronchodilators. We will attempt BiPAP breaks during the day, but patient will need BiPAP with sleep. We will place patient on 5 days of azithromycin empirically. 2. Severe protein calorie malnutrition Patient has not had imaging studies in several years. However, given patient's advanced lung disease, pulmonary cachexia would be suspected. Patient may develop refeeding syndrome with nutritional supplementation. Dietitian following. P.o. intake has been limited secondary to BiPAP 3. Anemia secondary to upper GI bleed Patient with a significant drop in hemoglobin since last check. Patient does have vitamin D deficiency in addition to iron deficiency. EGD did show some angiodysplastic lesions that have been cauterized. Unclear if this was the etiology patient may also have an element of villous atrophy leading to malnourishment and malabsorption syndrome. 4. Essential hypertension/concern for self neglect/history of aspergillo ma/history of kidney stones Complicates care, management, recovery and prognosis. Patient is guaiac positive, so slow GI bleed would be a consideration. Malignancy also cannot be excluded. Patient reportedly is unable to get out of bed, but continues to live independently. Social work will follow patient. Cannot exclude the need for ECF if patient continues to be aggressive. Subjective Subjective Patient did okay overnight. Patient did have to stay on BiPAP with much of her sleep secondary to hypoxia. Patient with no pain this morning. Patient states she does ambulate at home. Objective Data Objective Data Vital Signs: Vital Signs Temp Pulse Resp BP Pulse Ox O2 Del Method O2 Flow Rate 36.7 C 67 21 H 96/52 L 94 Bi-pap 6 06/21/23 04:00 05/01/23 07:03 05/01/23 07:03 05/01/23 07:00 05/01/23 07:03 05/01/23 07:03 04/30/23 22:00 FiO2 45 05/01/23 07:03 Oxygen Flow Rate (L/min) 6 Oxygen Delivery Method Bi-pap Weight: 31.2 kg Body Mass Index (BMI) 11.0 Intake & Output: Intake and Output for Last 24 Hours 04/29/23 04/30/23 05/01/23 23:59 23:59 23:59 Intake Total 1585 / 1585 905 / 965 60 / 60 Output Total 200 / 400 1150 / 1150 Balance 1385 / 1185 -245 / -185 60 / 60 Medical Nutrition Assessment Dietitian: Malnutrition Criteria Met Start: 04/29/23 12:29 Freq: Status: Active Protocol: Document 04/30/23 11:13 LO (Rec: 04/30/23 11:13 [id number]) Nutrition Malnutrition Evidence of Malnutrition Exists Yes Malnutrition (severe): Chronic Evidenced By Suboptimal Energy Intake ( Severe),Weight Loss (Severe), Physical Changes (Severe) Clinical Problem Chronic Disease or Condition Related Malnutrition Etiology SEVERE related to inadequate energy intake and COPD Signs/Symptoms as evidenced by PO intake <75% if estimated nutritional needs for >1 month and severe fat/muscle wasting to orbital, temporal, buccal, and clavicle regions Status Active Problem Recommendation Dietitian Recommendations/Changes As medically able, rec ERIN to Regular w/ 4 oz ensure plus high protein 3x/day w/ medpass RD would recommend enteral nutrition to help with weight gain due to severe malnutrition if it aligns with pt and familys wishes. Pt at HIGH RISK of REFEEDING SYNDROME - monitor for changes in nutritional status Lab / Micro Data Attestation: I reviewed the patient's lab results. Result Diagrams: 05/01/23 03:20 05/01/23 03:20 Labs: Laboratory Results - last 24 hr 04/30/23 04:13: Diff Path Review Reviewed 04/30/23 07:05: Blood Type O POSITIVE, Antibody Screen POSITIVE, Antibody Identification ANTI-S, Crossmatch See Detail 05/01/23 03:20: WBC 15.1 H, RBC 4.36, Hgb 9.8 L, Hct 36.5 L, MCV 83.7 D, MCH 22.5 L, MCHC 26.8 L, RDW Std Deviation 55.1 H, RDW Coeff of Marie 18.1 H, Plt Count 113 L, MPV 10.6, Immature Gran % (Auto) 1.000 H, Neut % (Auto) 93.4 H, Lymph % (Auto) 1.3 L, [place] % (Auto) 4.2, Eos % (Auto) 0.0, Baso % (Auto) 0.1, Absolute Neuts (auto) 14.1 H, Absolute Lymphs (auto) 0.20 L, Nucleated RBC % 0.1, Differential Comment SCANNED, Hypochromasia RARE 05/01/23 03:20: Sodium 148 H, Potassium 3.2 L, Chloride 112 H, Carbon Dioxide 36.0 H, Anion Gap 0 L, BUN 31 H, Creatinine 0.28 L, Estim Creat Clear Calc 25.56, Est GFR (MDRD) Af Amer 304, Est GFR (MDRD) Non-Af 251, BUN/Creatinine Ratio 109.9 H, Glucose 131 H, Calcium 6.6 L, Magnesium 2.0, Total Bilirubin 0.70, AST 17, ALT 11 L, Alkaline Phosphatase 26 L, Total Protein 4.8 L, Albumin 2.4 L, Globulin 2.4, Albumin/Globulin Ratio 1.0 05/01/23 03:20: Phosphorus 2.7 Micro: Microbiology 04/29/23 01:45 Urine Catheter - Catheter Urine Culture - Preliminary Gram Positive Cocci 04/29/23 14:15 Mucosa - Nasopharyngeal Respiratory Panel (PCR) - Final 04/29/23 01:47 Nasal Secretion SARS-CoV-2 & FLU Antigen (Rapid) - Final 04/29/23 02:05 Stool Stool Occult Blood (DEISY) - Final Occult Blood Positive Physical Exam Const alert and oriented x3 Constitutional Narrative: Patient appears older than her stated age. General Appearance: cooperative HEENT normocephalic, head/scalp atraumatic and hearing grossly normal bilaterally Eyes PERRL, EOMs intact bilaterally and conjunctivae normal Neck supple, no JVD, thyroid normal and no carotid bruits General: trachea midline Chest Chest: abnormal inspection of the chest increased A-P diameter Resp Resp Narrative: Breath sounds are distant bilaterally. Good BiPAP synchrony. Auscultation: wheezes and diminished lung sounds; Negative for rales or rhonchi Cardio regular rate, regular rhythm, S1 normal heart sound, S2 normal heart sound, no murmurs, no rub and no gallops GI normal to inspection, nondistended, normoactive bowel sounds, soft to palpation, non-tender and non-distended Extremity no clubbing, cyanosis or edema Skin no rashes or lesions noted General Skin Exam: no breakdown Neuro CN's II-XII intact bilaterally, moves all extremities, no focal motor deficits and no sensory deficits noted Psych Psych Narrative: Patient is a poor informant, she is oriented as to person place and year Activity / Motor Behavior: restless Mood & Affect: anxious and labile affect Charges/Coding Visit Charges Inpatient E&M: 24599 Subs Hosp L3
[2023-05-01] MEDS: Carvedilol 12.5 MG Tablet PO ×2 (08:42→16:36)
[2023-05-01] MEDS: Heparin Injection (Vial) 5,000 UNIT/ML VIAL 5000 UNIT SC ×2 (08:42→22:06)
[2023-05-01] MEDS: Potassium Chloride Oral Soln 20 MEQ/15 ML UDC 40 MEQ PO (10:22)
--- NOTE | 2023-05-01 14:34 | CASEMGMT ---
SW spoke with patient. SW asked patient if she has thought anymore about her discharge plan. SW told patient that she won't be able to go to assisted living right from the hospital as it will take some time for her hospice case manager to get this lined up. SW told patient she will probably have to go somewhere for rehab first. SW asked patient if she still wants to go to [facility] ([facility]) like she had said yesterday or if she would like a list of her options. Patient said she will probably go to [facility]. Patient said she may wait until she feels better as she may want to go home. SW told patient yesterday she said she does not want to go home. Patient said she will have to in order to pack up all of her stuff etc to get ready for assisted living. Patient was in agreement with JAMAAL sending a referral to [facility]. JAMAAL asked Leila d/c event planning manager to please send a referral to [facility]. Tawnya LÓPEZ
--- NOTE | 2023-05-01 15:02 | CASEMGMT ---
Discharge Planning Referral sent to [facility] via [facility]. Leila Lemons, Discharge Planning Asst,
--- NOTE | 2023-05-01 17:17 | EX.PCM.PN.GI ---
Subjective Subjective Patient underwent an upper endoscopy yesterday. She tolerated procedure without any problems. She was discovered to have angiodysplasias in the duodenum and stomach that were treated endoscopically with cautery. Objective Data Objective Data Vital Signs: Vital Signs Temp Pulse Resp BP Pulse Ox O2 Del Method O2 Flow Rate 97.8 F 75 24 H 117/73 99 Nasal Cannula 5 05/01/23 15:23 05/01/23 16:51 05/01/23 16:51 05/01/23 15:23 05/01/23 16:51 05/01/23 15:23 05/01/23 15:23 FiO2 40 05/01/23 16:51 Oxygen Flow Rate (L/min) 5 Oxygen Delivery Method Nasal Cannula Weight: 68 lb 12.548 oz Body Mass Index (BMI) 11.0 Intake & Output: Intake and Output for Last 24 Hours 04/29/23 04/30/23 05/01/23 23:59 23:59 23:59 Intake Total 1585 / 1585 905 / 965 545 / 545 Output Total 200 / 400 1150 / 1150 100 / 100 Balance 1385 / 1185 -245 / -185 445 / 445 Medical Nutrition Assessment Dietitian: Malnutrition Criteria Met Start: 04/29/23 12:29 Freq: Status: Active Protocol: Document 04/30/23 11:13 LO (Rec: 04/30/23 11:13 LO [id number]) Nutrition Malnutrition Evidence of Malnutrition Exists Yes Malnutrition (severe): Chronic Evidenced By Suboptimal Energy Intake ( Severe),Weight Loss (Severe), Physical Changes (Severe) Clinical Problem Chronic Disease or Condition Related Malnutrition Etiology SEVERE related to inadequate energy intake and COPD Signs/Symptoms as evidenced by PO intake <75% if estimated nutritional needs for >1 month and severe fat/muscle wasting to orbital, temporal, buccal, and clavicle regions Status Active Problem Recommendation Dietitian Recommendations/Changes As medically able, rec ERIN to Regular w/ 4 oz ensure plus high protein 3x/day w/ medpass RD would recommend enteral nutrition to help with weight gain due to severe malnutrition if it aligns with pt and familys wishes. Pt at HIGH RISK of REFEEDING SYNDROME - monitor for changes in nutritional status Lab / Micro Data Result Diagrams: 05/01/23 03:20 05/01/23 03:20 Labs: Laboratory Results - last 24 hr 05/01/23 03:20: WBC 15.1 H, RBC 4.36, Hgb 9.8 L, Hct 36.5 L, MCV 83.7 D, MCH 22.5 L, MCHC 26.8 L, RDW Std Deviation 55.1 H, RDW Coeff of Marie 18.1 H, Plt Count 113 L, MPV 10.6, Immature Gran % (Auto) 1.000 H, Neut % (Auto) 93.4 H, Lymph % (Auto) 1.3 L, [place] % (Auto) 4.2, Eos % (Auto) 0.0, Baso % (Auto) 0.1, Absolute Neuts (auto) 14.1 H, Absolute Lymphs (auto) 0.20 L, Nucleated RBC % 0.1, Differential Comment SCANNED, Hypochromasia RARE 05/01/23 03:20: Sodium 148 H, Potassium 3.2 L, Chloride 112 H, Carbon Dioxide 36.0 H, Anion Gap 0 L, BUN 31 H, Creatinine 0.28 L, Estim Creat Clear Calc 25.56, Est GFR (MDRD) Af Amer 304, Est GFR (MDRD) Non-Af 251, BUN/Creatinine Ratio 109.9 H, Glucose 131 H, Calcium 6.6 L, Magnesium 2.0, Total Bilirubin 0.70, AST 17, ALT 11 L, Alkaline Phosphatase 26 L, Total Protein 4.8 L, Albumin 2.4 L, Globulin 2.4, Albumin/Globulin Ratio 1.0 05/01/23 03:20: Phosphorus 2.7 Micro: Microbiology 04/29/23 01:45 Urine Catheter - Catheter Urine Culture - Final Aerococcus urinae 04/29/23 01:55 Blood Culture (Wb) - Right Forearm Blood Culture - Preliminary No growth in 48 hours. 04/29/23 01:51 Blood Culture (Wb) - Left Forearm Blood Culture - Preliminary No growth in 48 hours. 04/29/23 14:15 Mucosa - Nasopharyngeal Respiratory Panel (PCR) - Final 04/29/23 01:47 Nasal Secretion SARS-CoV-2 & FLU Antigen (Rapid) - Final 04/29/23 02:05 Stool Stool Occult Blood (DEISY) - Final Occult Blood Positive Physical Exam Const alert and oriented x3 Constitutional Narrative: Patient appears older than her stated age. General Appearance: cooperative HEENT normocephalic, head/scalp atraumatic and hearing grossly normal bilaterally Eyes PERRL, EOMs intact bilaterally and conjunctivae normal Neck supple, no JVD, thyroid normal and no carotid bruits General: trachea midline Chest Chest: abnormal inspection of the chest increased A-P diameter Resp Resp Narrative: Breath sounds are distant bilaterally. Good BiPAP synchrony. Auscultation: wheezes and diminished lung sounds; Negative for rales or rhonchi Cardio regular rate, regular rhythm, S1 normal heart sound, S2 normal heart sound, no murmurs, no rub and no gallops GI normal to inspection, nondistended, normoactive bowel sounds, soft to palpation, non-tender and non-distended Extremity no clubbing, cyanosis or edema Skin no rashes or lesions noted General Skin Exam: no breakdown Neuro CN's II-XII intact bilaterally, moves all extremities, no focal motor deficits and no sensory deficits noted Psych Psych Narrative: Patient is a poor informant, she is oriented as to person place and year Activity / Motor Behavior: restless Mood & Affect: anxious Assessment & Plan Assessment/Plan (1) Acute on chronic respiratory failure with hypoxia and hypercapnia: PLAN: Plan 67-year-old with history of COPD, anemia, cachexia, severe protein Malnutrition with a BMI of 10 who presents with altered mental status and diagnosed with metabolic encephalopathy. She underwent an upper endoscopy and was discovered to have signs and symptoms of acute blood loss anemia and was treated endoscopically. her hemoglobin seems to be stable at this time and she remains on supplemental oxygen. -Continue to monitor H&H -Hold anticoagulation -Continue acid suppressive therapy Charges/Coding Visit Charges Inpatient E&M: 27674 Subs Hosp L3
[2023-05-02] VITALS (21 sets, daily range): BP systolic 98–120; BP diastolic 61–73; PULSE 63–101; RESP 14–22; TEMP 36.5–36.9; O2SAT 88–100; BMI 11.2
[2023-05-02] MEDS: Ipratropium/Albuterol Sulfate 3 ML AMPUL.NEB INHALATION ×6 (03:29→23:50)
[2023-05-02 07:15] LABS: Absolute Lymphocyte Count 0.24 X10^3/uL (0.83-4.51); Basophil# 0.01 X10^3/uL; Basophil% 0.1 % (0-1); Hematocrit 34.7 % (37-47); Hemoglobin 9.1 g/dL (12.0-15.0); Lymphocyte # 0.24 X10^3/ul (0.83-4.51); Lymphocyte % 2.5 % (19-41); Mean Corp Hgb Conc 26.2 g/dL (32-36); Mean Corpuscular Hgb 22.6 pg (27.0-32.0); Mean Corpuscular Volume 86.3 fL (81-99); Monocyte% 4.1 % (0-10); NRBC Flagged by Analyzer 0 % (0-5); Neutrophil # 8.99 X10^3/uL (2.7-7.7); Neutrophil % 92.2 % (47-70); POSITIVE COUNT YES; POSITIVE DIFFERENTIAL YES; Platelet Count 85 K/mm3 (150-450); RBC Distribution Width CV 18.8 % (11.6-14.6); RBC Distribution Width SD 59.6 fl (35.1-43.9); Red Blood Count 4.02 M/mm3 (4.2-5.4); White Blood Count 9.8 K/mm3 (4.4-11.0)
[2023-05-02 07:19] LABS: Differential Indicated SCAN CRITERIA MET
[2023-05-02 07:37] LABS: Platelet Estimate MOD DEC (ADEQ)
[2023-05-02 07:44] LABS: AST(SGOT) 17 U/L (15-37); Alanine Aminotransfer ALT/SGPT 15 U/L (13-56); Albumin, Serum 2.9 g/dL (3.2-5.0); Alkaline Phosphatase 31 U/L (45-117); Anion Gap 0 (5-15); BUN 28 mg/dL (7-18); BUN/Creat Ratio 81.2 RATIO (10-20); Calcium,Total 8.7 mg/dL (8.5-10.1); Chloride 102 mmol/L (98-107); Creatinine, Serum 0.34 mg/dL (0.55-1.02); EST Glomerular Filtration Rate 199 mL/min (>60); Est Glom Filt Rate - Afr Amer 241 mL/min (>60); Estimated Creatinine Clearance 26.57 ml/min; Globulin 2.9 g/dL (2.2-4.2); Glucose 128 mg/dL (74-106); Magnesium 2.4 mg/dL (1.6-2.6); Potassium 4.8 mmol/L (3.5-5.1); Protein, Total 5.8 g/dL (6.4-8.2); Sodium Level 145 mmol/L (136-145)
--- NOTE | 2023-05-02 08:07 | PCM.PN.HOSP ---
Reason for Visit Reason for Visit: Diagnoses Anemia, unspecified (04/29/23) Encephalopathy, unspecified (04/29/23) Acute and chronic respiratory failure with hypoxia (04/29/23) Acute and chronic respiratory failure with hypercapnia (04/29/23) Subjective Subjective Patient did feel slightly more short of breath today, overall still feeling much improved. Objective Data Objective Data Vital Signs: Vital Signs Temp Pulse Resp BP Pulse Ox O2 Del Method O2 Flow Rate 97.7 F L 63 14 98/65 97 Bi-pap 5 05/02/23 03:35 05/02/23 05:44 05/02/23 05:44 05/02/23 03:35 05/02/23 05:44 05/02/23 03:37 05/01/23 21:54 FiO2 40 05/02/23 05:44 Oxygen Flow Rate (L/min) 5 Oxygen Delivery Method Bi-pap Weight: 31.7 kg Body Mass Index (BMI) 11.2 Intake & Output: Intake and Output for Last 24 Hours 04/30/23 05/01/23 05/02/23 23:59 23:59 23:59 Intake Total 905 / 965 915 / 915 Output Total 1150 / 1150 220 / 220 Balance -245 / -185 695 / 695 Medical Nutrition Assessment Dietitian: Malnutrition Criteria Met Start: 04/29/23 12:29 Freq: Status: Active Protocol: Document 04/30/23 11:13 LO (Rec: 04/30/23 11:13 LO [id number]) Nutrition Malnutrition Evidence of Malnutrition Exists Yes Malnutrition (severe): Chronic Evidenced By Suboptimal Energy Intake ( Severe),Weight Loss (Severe), Physical Changes (Severe) Clinical Problem Chronic Disease or Condition Related Malnutrition Etiology SEVERE related to inadequate energy intake and COPD Signs/Symptoms as evidenced by PO intake <75% if estimated nutritional needs for >1 month and severe fat/muscle wasting to orbital, temporal, buccal, and clavicle regions Status Active Problem Recommendation Dietitian Recommendations/Changes As medically able, rec ERIN to Regular w/ 4 oz ensure plus high protein 3x/day w/ medpass RD would recommend enteral nutrition to help with weight gain due to severe malnutrition if it aligns with pt and familys wishes. Pt at HIGH RISK of REFEEDING SYNDROME - monitor for changes in nutritional status Lab / Micro Data Result Diagrams: 05/02/23 06:58 05/02/23 06:58 Labs: Laboratory Results - last 24 hr 05/02/23 06:58: WBC 9.8, RBC 4.02 L, Hgb 9.1 L, Hct 34.7 L, MCV 86.3, MCH 22.6 L, MCHC 26.2 L, RDW Std Deviation 59.6 H, RDW Coeff of Marie 18.8 H, Plt Count 85 L, MPV 10.0, Immature Gran % (Auto) 1.100 H, Neut % (Auto) 92.2 H, Lymph % (Auto) 2.5 L, [place] % (Auto) 4.1, Eos % (Auto) 0.0, Baso % (Auto) 0.1, Absolute Neuts (auto) 9.0 H, Absolute Lymphs (auto) 0.24 L, Nucleated RBC % 0, Differential Comment COMMENT, Platelet Estimate MOD 05/02/23 06:58: Sodium 145, Potassium 4.8, Chloride 102, Carbon Dioxide 43.0 H, Anion Gap 0 L, BUN 28 H, Creatinine 0.34 L, Estim Creat Clear Calc 26.57, Est GFR (MDRD) Af Amer 241, Est GFR (MDRD) Non-Af 199, BUN/Creatinine Ratio 81.2 H, Glucose 128 H, Calcium 8.7, Magnesium 2.4, Total Bilirubin 0.40, AST 17, ALT 15, Alkaline Phosphatase 31 L, Total Protein 5.8 L, Albumin 2.9 L, Globulin 2.9, Albumin/Globulin Ratio 1.0 Micro: Microbiology 04/29/23 01:45 Urine Catheter - Catheter Urine Culture - Final Aerococcus urinae 04/29/23 01:55 Blood Culture (Wb) - Right Forearm Blood Culture - Preliminary No growth in 48 hours. 04/29/23 01:51 Blood Culture (Wb) - Left Forearm Blood Culture - Preliminary No growth in 48 hours. 04/29/23 14:15 Mucosa - Nasopharyngeal Respiratory Panel (PCR) - Final 04/29/23 01:47 Nasal Secretion SARS-CoV-2 & FLU Antigen (Rapid) - Final 04/29/23 02:05 Stool Stool Occult Blood (DEISY) - Final Occult Blood Positive Physical Exam Narrative General: Alert, oriented, no apparent distress, very thin HEENT: Atraumatic, normocephalic Eyes: Anicteric, normal conjunctiva, extraocular movements grossly intact Neck: Supple Respiratory: Diminished somewhat throughout, but normal respiratory effort Cardiovascular: Regular rate and rhythm GI: Soft, nontender, nondistended Extremities: No edema Musculoskeletal: Moving all extremities Neuro: No overt focal neurological deficits Skin: No rashes appreciated Psych: Cooperative Assessment & Plan Assessment/Plan (1) Acute on chronic respiratory failure with hypoxia and hypercapnia: PLAN: Plan #Acute metabolic encephalopathy secondary to acute on chronic hypoxic hypercapnic respiratory failure with history of severe chronic COPD on home 2L O2 -Was noted to be 56% O2 sat on room air prior to arrival and was placed on nonrebreather -Chest x-ray with no acute process or pneumonia is appreciated -VBG obtained in ED due to inability to get ABG secondary to hard stick with a pH of 7.25, PCO2 of 119 and PO2 of 46 -She was alert on nasal cannula 6 L in ED but had been transitioned to BiPAP prior to CT after VBG results obtained -Admitted to ICU with brass and wind instrument repairer consult -Nebs, inhaled steroids but inhaled steroids changed to IV Methylpred -COVID-negative, will obtain respiratory panel given unclear precipitating cause and will order sputum culture in the event patient unable to produce any sputum -White blood cell count within normal limits but does appear to have left shift, blood cultures obtained, possibly reactive, patient afebrile, patient was started on azithromycin however due to current clinical picture -Repeat blood gas in the a.m. was ABG demonstrated PO2 of 70, O2 sat 97% with a PCO2 of 119.4 -Did have CT head in the ED due to altered mental status which was unrevealing for acute cause, demonstrated chronic abnormalities but again suspect this is more due to hypoxia and hypercapnia -04/30: Reamined on bipap overnight, Bicarb on BMP 37. Respiratory panel negative, remains on DuoNebs every 4 and IV Methylpred As well as azithromycin. Respiratory status was much better this a.m., after EGD did require BiPAP to improve sats but was responding well -05/01: Acute metabolic encephalopathy resolved, continues to have BiPAP needs, remained in ICU overnight. Blood cell count up to 15.1 with neutrophil predominance, unclear reactive versus underlying infection, on azithromycin -05/02: Transitioned to oral steroids with plan for weaning over the next 12 to 14 days. Did have slight increase in shortness of breath and O2 requirement today but was not in respiratory distress. If any respiratory distress will repeat chest x-ray and may need IV steroids given very poor lung function however cannot remain on IV steroids permanently switch him to p.o. with taper. 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 Repeat hemoglobin was down to 7.5 yesterday, discussed with GI and they recommended EGD however patient dependent on BiPAP and was unable to be performed yesterday. GI recommended transfuse 1 unit packed red blood cells, 1 unit packed red blood cells ordered per GI recommendation. Today hemoglobin 7.4, no significant further drop however given presentation would benefit from endoscopy. 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 -05/01: Hemoglobin 9.8 today -05/02: Hemoglobin remained stable #severe protein and caloric malnutrition -Patient BMI listed is 10.5 kg/m? -To be seen by nutrition #Abn urine culture -Urine cx grew aerococcus but only 25,000-50,000 colonies and UA was fairly unremarkable so unclear clinical significance -Has been afebrile, overall improving, blood cultures negative -If any fevers or development of symptoms we will treat but do not feel this needs treated #Hypertension -Continue present management #History of kidney stones -Supportive care #DVT ppx: On Heparin subcu Annika Schmitz MD Time spent in the patient's overall evaluation,decision-making process, review of diagnostic data, adjustment of management, discussion with other providers, nursing nursing and ancillary staff involved in patient's care documentation, 36 minutes Charges/Coding Visit Charges Inpatient E&M: 39919 Subs Hosp L3
[2023-05-02 08:10] LABS: Phosphorus 2.3 mg/dL (2.5-4.9)
--- NOTE | 2023-05-02 08:20 | PCM.PN.INT ---
Assessment & Plan Assessment/Plan (1) Acute on chronic respiratory failure with hypoxia and hypercapnia: (2) Acute encephalopathy: (3) Anemia: PLAN: Plan RECOMMENDATIONS: 1. Transition to p.o. steroids and wean over the next 12 to 14 days and continue bronchodilators 2. Continue BiPAP breaks during the day, but BiPAP with sleep 3. Increase activity as tolerated 4. Likely okay to go to ECF once arranged 5. Keep oxygen saturations between 90 and 94% 6. Transfusion for hemoglobin less than 7 IMPRESSIONS: 1. Acute on chronic combined respiratory failure Unclear etiology. Patient does have very severe COPD at baseline with an FEV1 of 29% in 2019. Viral panel was negative. Chest x-ray does not show any obvious infiltrates, but given the amount of hyperinflation patient has, infiltrates can be difficult to assess. We will transition to p.o. steroids and wean over the next 12 to 14 days. Continue bronchodilators. We will attempt BiPAP breaks during the day, but patient will need BiPAP with sleep. Patient will complete a total of 5 days of azithromycin. 2. Severe protein calorie malnutrition Patient has not had imaging studies in several years. However, given patient's advanced lung disease, pulmonary cachexia would be suspected. Patient may develop refeeding syndrome with nutritional supplementation. Dietitian following. Patient has been taking pretty good p.o. 3. Anemia secondary to upper GI bleed Patient with a significant drop in hemoglobin since last check. Patient does have vitamin D deficiency in addition to iron deficiency. EGD did show some angiodysplastic lesions that have been cauterized. Unclear if this was the etiology patient may also have an element of villous atrophy leading to malnourishment and malabsorption syndrome. 4. Essential hypertension/concern for self neglect/history of aspergilloma/history of kidney stones Complicates care, management, recovery and prognosis. Malignancy also cannot be excluded. Patient is open to ECF placement Subjective Subjective Patient did well overnight. Patient was comfortable on BiPAP during my evaluation. No bleeding at been reported. Patient states she is hungry and ready to eat. Patient with no dyspnea while on BiPAP. Objective Data Objective Data Vital Signs: Vital Signs Temp Pulse Resp BP Pulse Ox O2 Del Method O2 Flow Rate 36.5 C L 63 14 98/65 97 Nasal Cannula 5 05/02/23 03:35 05/02/23 05:44 05/02/23 05:44 05/02/23 03:35 05/02/23 05:44 05/02/23 08:07 05/02/23 08:07 FiO2 40 05/02/23 05:44 Oxygen Flow Rate (L/min) 5 Oxygen Delivery Method Nasal Cannula Weight: 31.7 kg Body Mass Index (BMI) 11.2 Intake & Output: Intake and Output for Last 24 Hours 04/30/23 05/01/23 05/02/23 23:59 23:59 23:59 Intake Total 905 / 965 915 / 915 Output Total 1150 / 1150 220 / 220 Balance -245 / -185 695 / 695 Medical Nutrition Assessment Dietitian: Malnutrition Criteria Met Start: 04/29/23 12:29 Freq: Status: Active Protocol: Document 04/30/23 11:13 LO (Rec: 04/30/23 11:13 LO [id number]) Nutrition Malnutrition Evidence of Malnutrition Exists Yes Malnutrition (severe): Chronic Evidenced By Suboptimal Energy Intake ( Severe),Weight Loss (Severe), Physical Changes (Severe) Clinical Problem Chronic Disease or Condition Related Malnutrition Etiology SEVERE related to inadequate energy intake and COPD Signs/Symptoms as evidenced by PO intake <75% if estimated nutritional needs for >1 month and severe fat/muscle wasting to orbital, temporal, buccal, and clavicle regions Status Active Problem Recommendation Dietitian Recommendations/Changes As medically able, rec ERIN to Regular w/ 4 oz ensure plus high protein 3x/day w/ medpass RD would recommend enteral nutrition to help with weight gain due to severe malnutrition if it aligns with pt and familys wishes. Pt at HIGH RISK of REFEEDING SYNDROME - monitor for changes in nutritional status Lab / Micro Data Attestation: I reviewed the patient's lab results. Result Diagrams: 05/02/23 06:58 05/02/23 06:58 Labs: Laboratory Results - last 24 hr 05/02/23 06:58: WBC 9.8, RBC 4.02 L, Hgb 9.1 L, Hct 34.7 L, MCV 86.3, MCH 22.6 L, MCHC 26.2 L, RDW Std Deviation 59.6 H, RDW Coeff of Marie 18.8 H, Plt Count 85 L, MPV 10.0, Immature Gran % (Auto) 1.100 H, Neut % (Auto) 92.2 H, Lymph % (Auto) 2.5 L, [place] % (Auto) 4.1, Eos % (Auto) 0.0, Baso % (Auto) 0.1, Absolute Neuts (auto) 9.0 H, Absolute Lymphs (auto) 0.24 L, Nucleated RBC % 0, Differential Comment COMMENT, Platelet Estimate MOD 05/02/23 06:58: Sodium 145, Potassium 4.8, Chloride 102, Carbon Dioxide 43.0 H, Anion Gap 0 L, BUN 28 H, Creatinine 0.34 L, Estim Creat Clear Calc 26.57, Est GFR (MDRD) Af Amer 241, Est GFR (MDRD) Non-Af 199, BUN/Creatinine Ratio 81.2 H, Glucose 128 H, Calcium 8.7, Magnesium 2.4, Total Bilirubin 0.40, AST 17, ALT 15, Alkaline Phosphatase 31 L, Total Protein 5.8 L, Albumin 2.9 L, Globulin 2.9, Albumin/Globulin Ratio 1.0 05/02/23 06:58: Phosphorus 2.3 L Micro: Microbiology 04/29/23 01:45 Urine Catheter - Catheter Urine Culture - Final Aerococcus urinae 04/29/23 01:55 Blood Culture (Wb) - Right Forearm Blood Culture - Preliminary No growth in 48 hours. 04/29/23 01:51 Blood Culture (Wb) - Left Forearm Blood Culture - Preliminary No growth in 48 hours. 04/29/23 14:15 Mucosa - Nasopharyngeal Respiratory Panel (PCR) - Final 04/29/23 01:47 Nasal Secretion SARS-CoV-2 & FLU Antigen (Rapid) - Final 04/29/23 02:05 Stool Stool Occult Blood (DEISY) - Final Occult Blood Positive Physical Exam Const alert and oriented x3 Constitutional Narrative: Patient appears older than her stated age. General Appearance: cooperative HEENT normocephalic, head/scalp atraumatic and hearing grossly normal bilaterally Eyes PERRL, EOMs intact bilaterally and conjunctivae normal Neck supple, no JVD, thyroid normal and no carotid bruits General: trachea midline Chest Chest: abnormal inspection of the chest increased A-P diameter Resp Resp Narrative: Breath sounds are distant bilaterally. Good BiPAP synchrony. Auscultation: wheezes and diminished lung sounds; Negative for rales or rhonchi Cardio regular rate, regular rhythm, S1 normal heart sound, S2 normal heart sound, no murmurs, no rub and no gallops GI normal to inspection, nondistended, normoactive bowel sounds, soft to palpation, non-tender and non-distended Extremity no clubbing, cyanosis or edema Skin no rashes or lesions noted General Skin Exam: no breakdown Neuro CN's II-XII intact bilaterally, moves all extremities, no focal motor deficits and no sensory deficits noted Psych Psych Narrative: Patient is a poor informant, she is oriented as to person place and year Activity / Motor Behavior: restless Mood & Affect: labile affect Charges/Coding Visit Charges Inpatient E&M: 95682 Subs Hosp L2
[2023-05-02] MEDS: 0.9% Saline Lock 10 ML Syringe IV (09:40)
[2023-05-02] MEDS: predniSONE 20 MG Tablet 40 MG PO (09:41)
[2023-05-02] MEDS: Heparin Injection (Vial) 5,000 UNIT/ML VIAL 5000 UNIT SC (11:51)
[2023-05-02] MEDS: Na Biphos/Potassium Phosphate PACKET 1 PACKET PO (13:07)
--- NOTE | 2023-05-02 13:57 | CASEMGMT ---
[facility] accepted patient and will start the pre-cert. SW asked Leila d/c city planning teacher to see how much O2 they can manage as patient was on 6 L today. Tawnya LÓPEZ
--- NOTE | 2023-05-02 14:03 | CASEMGMT ---
Discharge Planning Updates sent to [facility] for pre-cert. Asked if they are able to manage O2 needs. Awaiting response. Leila Lemons, Discharge Planning Asst.
--- NOTE | 2023-05-02 14:35 | CASEMGMT ---
SW spoke with patient and let her know [facility] ([facility]) can take her at discharge. Patient said she wants to talk with her brother. SW asked patient if SW could call her brother and patient said no, she will talk with him. Plan: [facility] pending insurance approval. Patient's brother and sister expressed on admission to the RN that patient should go to a care home. Tawnya LÓPEZ
[2023-05-02] MEDS: Carvedilol 12.5 MG Tablet PO (17:24)
--- NOTE | 2023-05-02 17:38 | PN.GI_ITS ---
Subjective Subjective She has not seen any signs or symptoms of recurrent GI bleeding. She is tolerating a minimal diet. She has been gaining weight since being in hospital. Objective Data Objective Data Vital Signs: Vital Signs Temp Pulse Resp BP Pulse Ox O2 Del Method O2 Flow Rate 98.5 F 101 H 18 120/70 99 High Flow 8 05/02/23 17:20 05/02/23 17:20 05/02/23 17:20 05/02/23 17:20 05/02/23 17:20 05/02/23 17:20 05/02/23 17:20 FiO2 40 05/02/23 06:37 Oxygen Flow Rate (L/min) 8 Oxygen Delivery Method High Flow Weight: 69 lb 14.185 oz Body Mass Index (BMI) 11.2 Intake & Output: Intake and Output for Last 24 Hours 04/30/23 05/01/23 05/02/23 23:59 23:59 23:59 Intake Total 905 / 965 915 / 915 915 / 915 Output Total 1150 / 1150 220 / 220 Balance -245 / -185 695 / 695 915 / 915 Medical Nutrition Assessment Dietitian: Malnutrition Criteria Met Start: 04/29/23 12:29 Freq: Status: Active Protocol: Document 04/30/23 11:13 LO (Rec: 04/30/23 11:13 LO [id number]) Nutrition Malnutrition Evidence of Malnutrition Exists Yes Malnutrition (severe): Chronic Evidenced By Suboptimal Energy Intake ( Severe),Weight Loss (Severe), Physical Changes (Severe) Clinical Problem Chronic Disease or Condition Related Malnutrition Etiology SEVERE related to inadequate energy intake and COPD Signs/Symptoms as evidenced by PO intake <75% if estimated nutritional needs for >1 month and severe fat/muscle wasting to orbital, temporal, buccal, and clavicle regions Status Active Problem Recommendation Dietitian Recommendations/Changes As medically able, rec ERIN to Regular w/ 4 oz ensure plus high protein 3x/day w/ medpass RD would recommend enteral nutrition to help with weight gain due to severe malnutrition if it aligns with pt and familys wishes. Pt at HIGH RISK of REFEEDING SYNDROME - monitor for changes in nutritional status Lab / Micro Data Result Diagrams: 05/02/23 06:58 05/02/23 06:58 Labs: Laboratory Results - last 24 hr 05/02/23 06:58: WBC 9.8, RBC 4.02 L, Hgb 9.1 L, Hct 34.7 L, MCV 86.3, MCH 22.6 L , MCHC 26.2 L, RDW Std Deviation 59.6 H, RDW Coeff of Marie 18.8 H, Plt Count 85 L , MPV 10.0, Immature Gran % (Auto) 1.100 H, Neut % (Auto) 92.2 H, Lymph % (Auto) 2.5 L, [place] % (Auto) 4.1, Eos % (Auto) 0.0, Baso % (Auto) 0.1, Absolute Neuts (auto) 9.0 H, Absolute Lymphs (auto) 0.24 L, Nucleated RBC % 0, Differential Comment COMMENT, Platelet Estimate MOD 05/02/23 06:58: Sodium 145, Potassium 4.8, Chloride 102, Carbon Dioxide 43.0 H, Anion Gap 0 L, BUN 28 H, Creatinine 0.34 L, Estim Creat Clear Calc 26.57, Est GFR (MDRD) Af Amer 241, Est GFR (MDRD) Non-Af 199, BUN/Creatinine Ratio 81.2 H, Glucose 128 H, Calcium 8.7, Magnesium 2.4, Total Bilirubin 0.40, AST 17, ALT 15, Alkaline Phosphatase 31 L, Total Protein 5.8 L, Albumin 2.9 L, Globulin 2.9, Albumin/Globulin Ratio 1.0 05/02/23 06:58: Phosphorus 2.3 L Micro: Microbiology 04/29/23 01:45 Urine Catheter - Catheter Urine Culture - Final Aerococcus urinae 04/29/23 01:55 Blood Culture (Wb) - Right Forearm Blood Culture - Preliminary No growth in 48 hours. 04/29/23 01:51 Blood Culture (Wb) - Left Forearm Blood Culture - Preliminary No growth in 48 hours. 04/29/23 14:15 Mucosa - Nasopharyngeal Respiratory Panel (PCR) - Final 04/29/23 01:47 Nasal Secretion SARS-CoV-2 & FLU Antigen (Rapid) - Final 04/29/23 02:05 Stool Stool Occult Blood (DEISY) - Final Occult Blood Positive Physical Exam Const alert and oriented x3 Constitutional Narrative: Patient appears older than her stated age. General Appearance: cooperative HEENT normocephalic, head/scalp atraumatic and hearing grossly normal bilaterally Eyes PERRL, EOMs intact bilaterally and conjunctivae normal Neck supple, no JVD, thyroid normal and no carotid bruits General: trachea midline Chest Chest: abnormal inspection of the chest increased A-P diameter Resp Resp Narrative: Breath sounds are distant bilaterally. Good BiPAP synchrony. Auscultation: wheezes and diminished lung sounds; Negative for rales or rhonchi Cardio regular rate, regular rhythm, S1 normal heart sound, S2 normal heart sound, no murmurs, no rub and no gallops GI normal to inspection, nondistended, normoactive bowel sounds, soft to palpation, non-tender and non-distended Extremity no clubbing, cyanosis or edema Skin no rashes or lesions noted General Skin Exam: no breakdown Neuro CN's II-XII intact bilaterally, moves all extremities, no focal motor deficits and no sensory deficits noted Psych Psych Narrative: Patient is a poor informant, she is oriented as to person place and year Activity / Motor Behavior: restless Mood & Affect: labile affect Assessment & Plan Assessment/Plan (1) Acute on chronic respiratory failure with hypoxia and hypercapnia: PLAN: Plan 67-year-old with history of COPD, anemia, cachexia, severe protein Malnutrition with a BMI of 10 who presents with altered mental status and diagnosed with metabolic encephalopathy. She underwent an upper endoscopy and was discovered to have signs and symptoms of acute blood loss anemia and was treated endoscopically. her hemoglobin seems to be stable at this time and she remains on supplemental oxygen. 05/02: -Continue to monitor H&H -Hold anticoagulation -Continue acid suppressive therapy Charges/Coding Visit Charges Inpatient E&M: 73050 Subs Hosp L2
[2023-05-03] VITALS (17 sets, daily range): BP systolic 91–105; BP diastolic 59–75; PULSE 75–91; RESP 14–20; TEMP 36.6–37.2; O2SAT 88–99; BMI 11.4
--- NOTE | 2023-05-03 00:48 | PCM.PN.BLA ---
Progress Note With drop in platelets prophylactic heparin stopped. SCDs ordered.
[2023-05-03 06:35] LABS: Absolute Neutrophil Count 9.1 X10^3/uL (2.0-7.7); Basophil# 0.01 X10^3/uL; Basophil% 0.1 % (0-1); Hematocrit 33.2 % (37-47); Hemoglobin 8.6 g/dL (12.0-15.0); Lymphocyte % 3.8 % (19-41); Mean Corp Hgb Conc 25.9 g/dL (32-36); Mean Corpuscular Hgb 23.1 pg (27.0-32.0); Mean Platelet Vol. 10.2 fl (6.2-12.0); Monocyte# 0.89 X10^3/uL; Monocyte% 8.5 % (0-10); NRBC Flagged by Analyzer 0 % (0-5); Neutrophil % 86.7 % (47-70); POSITIVE COUNT YES; POSITIVE DIFFERENTIAL YES; Platelet Count 73 K/mm3 (150-450); RBC Distribution Width CV 19.3 % (11.6-14.6); RBC Distribution Width SD 62.9 fl (35.1-43.9); Red Blood Count 3.73 M/mm3 (4.2-5.4); White Blood Count 10.5 K/mm3 (4.4-11.0)
[2023-05-03 06:36] LABS: Differential Indicated SCAN CRITERIA MET
[2023-05-03 06:56] LABS: Platelet Estimate MOD DEC (ADEQ)
[2023-05-03 06:57] LABS: Differential Comment SCANNED
[2023-05-03 07:02] LABS: ALB/GLOB Ratio 0.9 RATIO (0.9-2.4); AST(SGOT) 16 U/L (15-37); Alanine Aminotransfer ALT/SGPT 15 U/L (13-56); Albumin, Serum 2.6 g/dL (3.2-5.0); Alkaline Phosphatase 31 U/L (45-117); Anion Gap -2 (5-15); BUN 25 mg/dL (7-18); BUN/Creat Ratio 89.3 RATIO (10-20); Calcium,Total 8.6 mg/dL (8.5-10.1); Chloride 100 mmol/L (98-107); Creatinine, Serum 0.28 mg/dL (0.55-1.02); EST Glomerular Filtration Rate 253 mL/min (>60); Est Glom Filt Rate - Afr Amer 307 mL/min (>60); Estimated Creatinine Clearance 26.99 ml/min; Glucose 90 mg/dL (74-106); Magnesium 2.3 mg/dL (1.6-2.6); Potassium 4.2 mmol/L (3.5-5.1); Protein, Total 5.6 g/dL (6.4-8.2); Sodium Level 141 mmol/L (136-145)
[2023-05-03] MEDS: Ipratropium/Albuterol Sulfate 3 ML AMPUL.NEB INHALATION ×5 (07:07→23:42)
[2023-05-03 07:14] LABS: Phosphorus 1.7 mg/dL (2.5-4.9)
--- NOTE | 2023-05-03 08:44 | PCM.PN.HOSP ---
Reason for Visit Reason for Visit: Diagnoses Anemia, unspecified (04/29/23) Encephalopathy, unspecified (04/29/23) Acute and chronic respiratory failure with hypoxia (04/29/23) Acute and chronic respiratory failure with hypercapnia (04/29/23) Subjective Subjective Patient overnight with still some dyspnea with minimal exertion but feels as though she is returning to her chronic baseline with mild cough with minimal productive sputum. She does report that she has been eating better and has no nausea, emesis or abdominal pain. Patient is tolerating oral steroid transition and BiPAP only with nightly for sleep. Patient evaluated by pulmonary medicine this a.m. and cleared for discharge once clinically appropriate. Also reviewed case with gastroenterology and at the time they recommended continued acid suppressive therapy and amenable to discharge with follow-up outpatient once clinically appropriate. Patient denies fevers, chills, nausea, emesis, abdominal pain, chest pain. Objective Data Objective Data Vital Signs: Vital Signs Temp Pulse Resp BP Pulse Ox O2 Del Method O2 Flow Rate 98.2 F 78 16 91/59 L 96 High Flow 7 05/03/23 07:02 05/03/23 08:01 05/03/23 07:07 05/03/23 08:01 05/03/23 07:07 05/03/23 08:00 05/03/23 08:00 FiO2 45 05/03/23 03:50 Oxygen Flow Rate (L/min) 7 Oxygen Delivery Method High Flow Weight: 70 lb 15.822 oz Body Mass Index (BMI) 11.4 Intake & Output: Intake and Output for Last 24 Hours 05/01/23 05/02/23 05/03/23 23:59 23:59 23:59 Intake Total 915 / 915 915 / 1015 310 / 310 Output Total 220 / 220 Balance 695 / 695 915 / 1015 310 / 310 Medical Nutrition Assessment Dietitian: Malnutrition Criteria Met Start: 04/29/23 12:29 Freq: Status: Active Protocol: Document 04/30/23 11:13 LO (Rec: 04/30/23 11:13 LO [id number]) Nutrition Malnutrition Evidence of Malnutrition Exists Yes Malnutrition (severe): Chronic Evidenced By Suboptimal Energy Intake ( Severe),Weight Loss (Severe), Physical Changes (Severe) Clinical Problem Chronic Disease or Condition Related Malnutrition Etiology SEVERE related to inadequate energy intake and COPD Signs/Symptoms as evidenced by PO intake <75% if estimated nutritional needs for >1 month and severe fat/muscle wasting to orbital, temporal, buccal, and clavicle regions Status Active Problem Recommendation Dietitian Recommendations/Changes As medically able, rec ERIN to Regular w/ 4 oz ensure plus high protein 3x/day w/ medpass RD would recommend enteral nutrition to help with weight gain due to severe malnutrition if it aligns with pt and familys wishes. Pt at HIGH RISK of REFEEDING SYNDROME - monitor for changes in nutritional status Lab / Micro Data Result Diagrams: 05/03/23 06:07 05/03/23 06:07 Labs: Laboratory Results - last 24 hr 05/03/23 06:07: WBC 10.5, RBC 3.73 L, Hgb 8.6 L, Hct 33.2 L, MCV 89.0, MCH 23.1 L, MCHC 25.9 L, RDW Std Deviation 62.9 H, RDW Coeff of Marie 19.3 H, Plt Count 73 L, MPV 10.2, Immature Gran % (Auto) 0.900, Neut % (Auto) 86.7 H, Lymph % (Auto) 3.8 L, [place] % (Auto) 8.5, Eos % (Auto) 0.0, Baso % (Auto) 0.1, Absolute Neuts (auto) 9.1 H, Absolute Lymphs (auto) 0.40 L, Nucleated RBC % 0, Differential Comment SCANNED, Platelet Estimate MOD DEC 05/03/23 06:07: Sodium 141, Potassium 4.2, Chloride 100, Carbon Dioxide 43.0 H, Anion Gap -2 L, BUN 25 H, Creatinine 0.28 L, Estim Creat Clear Calc 26.99, Est GFR (MDRD) Af Amer 307, Est GFR (MDRD) Non-Af 253, BUN/Creatinine Ratio 89.3 H, Glucose 90, Calcium 8.6, Magnesium 2.3, Total Bilirubin 0.40, AST 16, ALT 15, Alkaline Phosphatase 31 L, Total Protein 5.6 L, Albumin 2.6 L, Globulin 3.0, Albumin/Globulin Ratio 0.9 05/03/23 06:07: Phosphorus 1.7 L Micro: Microbiology 04/29/23 01:45 Urine Catheter - Catheter Urine Culture - Final Aerococcus urinae 04/29/23 01:55 Blood Culture (Wb) - Right Forearm Blood Culture - Preliminary No growth in 48 hours. 04/29/23 01:51 Blood Culture (Wb) - Left Forearm Blood Culture - Preliminary No growth in 48 hours. 04/29/23 14:15 Mucosa - Nasopharyngeal Respiratory Panel (PCR) - Final 04/29/23 01:47 Nasal Secretion SARS-CoV-2 & FLU Antigen (Rapid) - Final 04/29/23 02:05 Stool Stool Occult Blood (DEISY) - Final Occult Blood Positive Physical Exam Narrative Physical Examination: General: Awake, alert, oriented x 3 and cooperative, seated upright in PCU bedside chair, receiving aerosol treatment, notes feeling improved, no complaints. Skin: Normal color, normal turgor, no icterus, no cyanosis except for occasional staged ecchymoses. HEENT: AT/NC, EOMI, PERRLA, MMM, aerosol treatment currently being given. Lungs: Significantly distant, diminished, occasional end expiratory wheeze, no evidence of any respiratory distress, breathing treatment being given, no rales or rhonchi. Heart: Currently regular rate and rhythm; no gallop, rub audible. Abdomen: Soft, cachectic thin habitus, NTTP, ND, normal BS. Extremities: No cyanosis, clubbing, or edema, evidence of muscle wasting and fat loss. Neurological: Patient awake, alert, oriented as noted, cognitive function intact; pupils equally reactive to light and accommodation, cranial nerves II-XII grossly normal, moving all 4 extremities, no focal deficits, strength moderately to severely global decreased secondary to acute presentation complicated by underlying comorbidities. Psychiatric: Affect appears fatigued otherwise normal, no acute evidence of depressive or anxiety feelings. Assessment & Plan Assessment/Plan (1) Acute on chronic respiratory failure with hypoxia and hypercapnia: PLAN: Plan The patient is a 67 y/o F w/ PMHx: Severe Protein Calorie Malnutrition, Chronic normocyic anemia, COPD/Asthma w/ Chronic Hypoxic Respiratory Failure, Chronic normocytic anemia, HTN, Allergic rhinitis, Anxiety and Depression who presents to the [facility] ED on 04/29/23 with history of significant profound weakness and encephalopathy found in her bed at home. #1. Acute Encephalopathy secondary to Acute on Chronic COPD/Asthma exacerbation with chronic hypoxic and hypercapnic respiratory failure (Chronic 3L NC): Severe underlying COPD at baseline with FEV1 29% 2018. CXR w/ chronic changes, CT of the head with no acute intracranial findings, VBG in the ED secondary to inability to obtain ABG, pH 7.25, PCO2 19, PO2 46, initially 6 L nasal cannula transition to BiPAP, initially admitted to the ICU, maintained on initially inhaled steroids transition to IV Solu-Medrol, COVID-negative, respiratory panel unremarkable, transition eventually from IV Solu-Medrol to oral steroids, transition eventually to BiPAP nightly only, plans continuation of 5 days of azithromycin per pulmonary recommendation and also recommendation of very prolonged 12 to 14-day oral steroid taper. #2. Acute on Chronic normocytic anemia/iron deficiency anemia secondary to upper GI bleed with multiple angiodysplastic lesions: Admission hemoglobin 9.0 upon presentation, IV Protonix initiated in the ED, baseline prior to this remotely from 2020 had appeared 12-14 range thus no recent comparison, during admission hemoglobin did trend down to 7.4 on 04/30/2023 with 1 unit PRBC transfusion, GI consulted and EGD performed w/ noted angiodysplastic lesions requiring cauterization, maintained on IV PPI with serial H&H's initially, 04/30/2023 iron studies with ferritin of 4, at discharge will plan transition to oral PPI and plan follow-up outpatient with gastroenterology. Most recent repeat 05/03/2023 hemoglobin 8.6, continue to trend. #3. Hypophosphatemia: 05/02/2023 phosphorus 2.3, repeat 05/03/2023 phosphorus 1.7, will initiate Neutra-Phos packets and repeat level in AM. #4.. Incidental abnormal urine culture: Urine culture with Aerococcus 25,000 and 50,000 colonies and UA fairly unremarkable, unclear clinical significance, afebrile, improving, blood cultures negative, not consistent with hypertension. #5 hypertension: Continue home regimen including Coreg, PRN hydralazine. #6. Severe protein calorie malnutrition: Evidenced by significantly reduced BMI, obvious muscle and fat loss, nutrition consulted and following. #7. Anxiety and depression: We will continue patient home mirtazapine regimen. #8. Former tobacco use: Encourage continued tobacco cessation. #9. DVT prophylaxis: SCDs. #10. CODE STATUS: Full code. Admission Evaluation Time spent evaluating chart, patient history, patient evaluation, care planning and discussion with specialists: 35 minutes. Charges/Coding Visit Charges Inpatient E&M: 62855 Subs Hosp L2
[2023-05-03] MEDS: predniSONE 20 MG Tablet 40 MG PO (09:47)
[2023-05-03] MEDS: Na Biphos/Potassium Phosphate PACKET 1 PACKET PO (09:47)
[2023-05-03] MEDS: 0.9% Saline Lock 10 ML Syringe IV ×2 (09:49→16:19)
--- NOTE | 2023-05-03 10:54 | PCM.PN.INT ---
Assessment & Plan Assessment/Plan (1) Acute on chronic respiratory failure with hypoxia and hypercapnia: (2) Acute encephalopathy: (3) Anemia: PLAN: Plan RECOMMENDATIONS: 1. Continue p.o. steroids and wean over the next 12 to 14 days and continue bronchodilators 2. Transition to BiPAP with sleep only 3. Increase activity as tolerated 4. Likely okay to go to ECF once arranged 5. Keep oxygen saturations between 90 and 94% 6. Transfusion for hemoglobin less than 7 7. Hemodynamically stable on baseline oxygen. Will sign off from a pulmonary/critical care perspective IMPRESSIONS: 1. Acute on chronic combined respiratory failure Unclear etiology. Patient does have very severe COPD at baseline with an FEV1 of 29% in 2019. Viral panel was negative. Chest x-ray does not show any obvious infiltrates, but given the amount of hyperinflation patient has, infiltrates can be difficult to assess. We will transition to p.o. steroids and wean over the next 12 to 14 days. Continue bronchodilators. Okay to move with BiPAP with sleep only. Patient will complete a total of 5 days of azithromycin. 2. Severe protein calorie malnutrition Patient has not had imaging studies in several years. However, given patient's advanced lung disease, pulmonary cachexia would be suspected. Patient may develop refeeding syndrome with nutritional supplementation. Dietitian following. Patient has been taking pretty good p.o. 3. Anemia secondary to upper GI bleed Patient with a significant drop in hemoglobin since last check. Patient does have vitamin D deficiency in addition to iron deficiency. EGD did show some angiodysplastic lesions that have been cauterized. Unclear if this was the etiology patient may also have an element of villous atrophy leading to malnourishment and malabsorption syndrome. Repeat vitamin levels in 2 to 4 weeks likely reasonable 4. Essential hypertension/concern for self neglect/history of aspergilloma/history of kidney stones Complicates care, management, recovery and prognosis. Malignancy also cannot be excluded. Patient is open to ECF placement Subjective Subjective Patient did well overnight. Patient still reports shortness of breath with minimal exertion, but feels she is getting close to baseline. Patient has a mild cough with little production. Patient states she has had a good appetite and is not reporting any abdominal pain or nausea. Objective Data Objective Data Vital Signs: Vital Signs Temp Pulse Resp BP Pulse Ox O2 Del Method O2 Flow Rate 36.8 C 78 16 91/59 L 94 High Flow 5 05/03/23 07:02 05/03/23 08:01 05/03/23 07:07 05/03/23 08:01 05/03/23 09:00 05/03/23 09:00 05/03/23 09:00 FiO2 45 05/03/23 03:50 Oxygen Flow Rate (L/min) 5 Oxygen Delivery Method High Flow Weight: 32.2 kg Body Mass Index (BMI) 11.4 Intake & Output: Intake and Output for Last 24 Hours 05/01/23 05/02/23 05/03/23 23:59 23:59 23:59 Intake Total 915 / 915 915 / 1015 310 / 310 Output Total 220 / 220 Balance 695 / 695 915 / 1015 310 / 310 Medical Nutrition Assessment Dietitian: Malnutrition Criteria Met Start: 04/29/23 12:29 Freq: Status: Active Protocol: Document 04/30/23 11:13 LO (Rec: 04/30/23 11:13 LO [id number]) Nutrition Malnutrition Evidence of Malnutrition Exists Yes Malnutrition (severe): Chronic Evidenced By Suboptimal Energy Intake ( Severe),Weight Loss (Severe), Physical Changes (Severe) Clinical Problem Chronic Disease or Condition Related Malnutrition Etiology SEVERE related to inadequate energy intake and COPD Signs/Symptoms as evidenced by PO intake <75% if estimated nutritional needs for >1 month and severe fat/muscle wasting to orbital, temporal, buccal, and clavicle regions Status Active Problem Recommendation Dietitian Recommendations/Changes As medically able, rec ERIN to Regular w/ 4 oz ensure plus high protein 3x/day w/ medpass RD would recommend enteral nutrition to help with weight gain due to severe malnutrition if it aligns with pt and familys wishes. Pt at HIGH RISK of REFEEDING SYNDROME - monitor for changes in nutritional status Lab / Micro Data Attestation: I reviewed the patient's lab results. Result Diagrams: 05/03/23 06:07 05/03/23 06:07 Labs: Laboratory Results - last 24 hr 05/03/23 06:07: WBC 10.5, RBC 3.73 L, Hgb 8.6 L, Hct 33.2 L, MCV 89.0, MCH 23.1 L, MCHC 25.9 L, RDW Std Deviation 62.9 H, RDW Coeff of Marie 19.3 H, Plt Count 73 L, MPV 10.2, Immature Gran % (Auto) 0.900, Neut % (Auto) 86.7 H, Lymph % (Auto) 3.8 L, [place] % (Auto) 8.5, Eos % (Auto) 0.0, Baso % (Auto) 0.1, Absolute Neuts (auto) 9.1 H, Absolute Lymphs (auto) 0.40 L, Nucleated RBC % 0, Differential Comment SCANNED, Platelet Estimate MOD 05/03/23 06:07: Sodium 141, Potassium 4.2, Chloride 100, Carbon Dioxide 43.0 H, Anion Gap -2 L, BUN 25 H, Creatinine 0.28 L, Estim Creat Clear Calc 26.99, Est GFR (MDRD) Af Amer 307, Est GFR (MDRD) Non-Af 253, BUN/Creatinine Ratio 89.3 H, Glucose 90, Calcium 8.6, Magnesium 2.3, Total Bilirubin 0.40, AST 16, ALT 15, Alkaline Phosphatase 31 L, Total Protein 5.6 L, Albumin 2.6 L, Globulin 3.0, Albumin/Globulin Ratio 0.9 05/03/23 06:07: Phosphorus 1.7 L Micro: Microbiology 04/29/23 01:45 Urine Catheter - Catheter Urine Culture - Final Aerococcus urinae 04/29/23 01:55 Blood Culture (Wb) - Right Forearm Blood Culture - Preliminary No growth in 48 hours. 04/29/23 01:51 Blood Culture (Wb) - Left Forearm Blood Culture - Preliminary No growth in 48 hours. 04/29/23 14:15 Mucosa - Nasopharyngeal Respiratory Panel (PCR) - Final 04/29/23 01:47 Nasal Secretion SARS-CoV-2 & FLU Antigen (Rapid) - Final 04/29/23 02:05 Stool Stool Occult Blood (DEISY) - Final Occult Blood Positive Physical Exam Const alert and oriented x3 Constitutional Narrative: Patient appears older than her stated age. General Appearance: cooperative HEENT normocephalic, head/scalp atraumatic and hearing grossly normal bilaterally Eyes PERRL, EOMs intact bilaterally and conjunctivae normal Neck supple, no JVD, thyroid normal and no carotid bruits General: trachea midline Chest Chest: abnormal inspection of the chest increased A-P diameter Resp Resp Narrative: Breath sounds are distant bilaterally. Good BiPAP synchrony. Auscultation: wheezes and diminished lung sounds; Negative for rales or rhonchi Cardio regular rate, regular rhythm, S1 normal heart sound, S2 normal heart sound, no murmurs, no rub and no gallops GI normal to inspection, nondistended, normoactive bowel sounds, soft to palpation, non-tender and non-distended Extremity no clubbing, cyanosis or edema Skin no rashes or lesions noted General Skin Exam: no breakdown Neuro CN's II-XII intact bilaterally, moves all extremities, no focal motor deficits and no sensory deficits noted Psych Psych Narrative: Patient is a poor informant, she is oriented as to person place and year Activity / Motor Behavior: restless Mood & Affect: anxious and labile affect Charges/Coding Visit Charges Inpatient E&M: 48612 Subs Hosp L2
--- NOTE | 2023-05-03 10:55 | CASEMGMT ---
SW completed a PASRR on patient. Awaiting pre-cert for [facility] ([facility]). Plan: d/c to [facility] under skilled level of care pending pre-cert. Tawnya LÓPEZ
[2023-05-03] MEDS: Carvedilol 12.5 MG Tablet PO ×2 (11:36→16:15)
--- NOTE | 2023-05-03 14:00 | CASEMGMT ---
Addendum entered by Tawnya Contreras 05/03/23 14:18: JAMAAL spoke with patient's sister Frieda and let her know the d/c plan. Frieda asked if patient could go to a facility in [place] as it would be closer to her and patient's son. JAMAAL explained that patient chose [facility] so that is the facility SW went with. SW did let Frieda know that patient's case packer and sealer with [facility] will work on getting patient into assisted living. Tawnya LÓPEZ Original Note: JAMAAL spoke with patient letting her know we are just waiting on her insurance to approve her to go to [facility]. SW told patient she could possibly be here through the weekend if insurance does not approve her. Patient seemed a little confused so SW did call patient's brother Gerard and let him know the plan. Patient's sister Frieda will be in today and he asked if SW could talk with her as well. JAMAAL said that would be fine. Plan: d/c to [facility] under skilled level of care pending insurance approval. Tawnya LÓPEZ
--- NOTE | 2023-05-03 19:16 | EX.PCM.PN.GI ---
Subjective Subjective Patient states that she feels about the same. She is eating a minimal amount of food. She says that her breathing is about the same as yesterday. She has put on 10 pounds since being in the hospital. She denies any abdominal pain, nausea or vomiting. Objective Data Objective Data Vital Signs: Vital Signs Temp Pulse Resp BP Pulse Ox O2 Del Method O2 Flow Rate 97.8 F 83 16 101/59 L 99 Nasal Cannula 4 05/03/23 16:12 05/03/23 16:12 05/03/23 16:12 05/03/23 16:12 05/03/23 16:12 05/03/23 16:12 05/03/23 16:12 FiO2 45 05/03/23 03:50 Oxygen Flow Rate (L/min) 4 Oxygen Delivery Method Nasal Cannula Weight: 70 lb 15.822 oz Body Mass Index (BMI) 11.4 Intake & Output: Intake and Output for Last 24 Hours 05/01/23 05/02/23 05/03/23 23:59 23:59 23:59 Intake Total 915 / 915 915 / 1015 1675 / 1675 Output Total 220 / 220 Balance 695 / 695 915 / 1015 1675 / 1675 Medical Nutrition Assessment Dietitian: Malnutrition Criteria Met Start: 04/29/23 12:29 Freq: Status: Active Protocol: Document 04/30/23 11:13 LO (Rec: 04/30/23 11:13 LO [id number]) Nutrition Malnutrition Evidence of Malnutrition Exists Yes Malnutrition (severe): Chronic Evidenced By Suboptimal Energy Intake ( Severe),Weight Loss (Severe), Physical Changes (Severe) Clinical Problem Chronic Disease or Condition Related Malnutrition Etiology SEVERE related to inadequate energy intake and COPD Signs/Symptoms as evidenced by PO intake <75% if estimated nutritional needs for >1 month and severe fat/muscle wasting to orbital, temporal, buccal, and clavicle regions Status Active Problem Recommendation Dietitian Recommendations/Changes As medically able, rec ERIN to Regular w/ 4 oz ensure plus high protein 3x/day w/ medpass RD would recommend enteral nutrition to help with weight gain due to severe malnutrition if it aligns with pt and familys wishes. Pt at HIGH RISK of REFEEDING SYNDROME - monitor for changes in nutritional status Lab / Micro Data Result Diagrams: 05/03/23 06:07 05/03/23 06:07 Labs: Laboratory Results - last 24 hr 05/03/23 06:07: WBC 10.5, RBC 3.73 L, Hgb 8.6 L, Hct 33.2 L, MCV 89.0, MCH 23.1 L, MCHC 25.9 L, RDW Std Deviation 62.9 H, RDW Coeff of Marie 19.3 H, Plt Count 73 L, MPV 10.2, Immature Gran % (Auto) 0.900, Neut % (Auto) 86.7 H, Lymph % (Auto) 3.8 L, [place] % (Auto) 8.5, Eos % (Auto) 0.0, Baso % (Auto) 0.1, Absolute Neuts (auto) 9.1 H, Absolute Lymphs (auto) 0.40 L, Nucleated RBC % 0, Differential Comment SCANNED, Platelet Estimate MOD 05/03/23 06:07: Sodium 141, Potassium 4.2, Chloride 100, Carbon Dioxide 43.0 H, Anion Gap -2 L, BUN 25 H, Creatinine 0.28 L, Estim Creat Clear Calc 26.99, Est GFR (MDRD) Af Amer 307, Est GFR (MDRD) Non-Af 253, BUN/Creatinine Ratio 89.3 H, Glucose 90, Calcium 8.6, Magnesium 2.3, Total Bilirubin 0.40, AST 16, ALT 15, Alkaline Phosphatase 31 L, Total Protein 5.6 L, Albumin 2.6 L, Globulin 3.0, Albumin/Globulin Ratio 0.9 05/03/23 06:07: Phosphorus 1.7 L Micro: Microbiology 04/29/23 01:45 Urine Catheter - Catheter Urine Culture - Final Aerococcus urinae 04/29/23 01:55 Blood Culture (Wb) - Right Forearm Blood Culture - Preliminary No growth in 48 hours. 04/29/23 01:51 Blood Culture (Wb) - Left Forearm Blood Culture - Preliminary No growth in 48 hours. 04/29/23 14:15 Mucosa - Nasopharyngeal Respiratory Panel (PCR) - Final 04/29/23 01:47 Nasal Secretion SARS-CoV-2 & FLU Antigen (Rapid) - Final 04/29/23 02:05 Stool Stool Occult Blood (DEISY) - Final Occult Blood Positive Physical Exam Const alert and oriented x3 Constitutional Narrative: Patient appears older than her stated age. General Appearance: cooperative HEENT normocephalic, head/scalp atraumatic and hearing grossly normal bilaterally Eyes PERRL, EOMs intact bilaterally and conjunctivae normal Neck supple, no JVD, thyroid normal and no carotid bruits General: trachea midline Chest Chest: abnormal inspection of the chest increased A-P diameter Resp Resp Narrative: Breath sounds are distant bilaterally. Good BiPAP synchrony. Auscultation: wheezes and diminished lung sounds; Negative for rales or rhonchi Cardio regular rate, regular rhythm, S1 normal heart sound, S2 normal heart sound, no murmurs, no rub and no gallops GI normal to inspection, nondistended, normoactive bowel sounds, soft to palpation, non-tender and non-distended Extremity no clubbing, cyanosis or edema Skin no rashes or lesions noted General Skin Exam: no breakdown Neuro CN's II-XII intact bilaterally, moves all extremities, no focal motor deficits and no sensory deficits noted Psych Psych Narrative: Patient is a poor informant, she is oriented as to person place and year Activity / Motor Behavior: restless Mood & Affect: anxious and labile affect Assessment & Plan Assessment/Plan (1) Acute on chronic respiratory failure with hypoxia and hypercapnia: PLAN: Plan 67-year-old with history of COPD, anemia, cachexia, severe protein Malnutrition with a BMI of 10 who presents with altered mental status and diagnosed with metabolic encephalopathy. She underwent an upper endoscopy and was discovered to have signs and symptoms of acute blood loss anemia and was treated endoscopically. her hemoglobin seems to be stable at this time and she remains on supplemental oxygen. 05/02: -Continue to monitor H&H -Hold anticoagulation -Continue acid suppressive therapy 05/03: -H&H seems to be stable. -Continue acid suppressive therapy for the next 3 months -She is okay to go back on anticoagulation Charges/Coding Visit Charges Inpatient E&M: 13189 Subs Hosp L3
[2023-05-04] VITALS (17 sets, daily range): BP systolic 100–128; BP diastolic 60–82; PULSE 70–98; RESP 14–24; TEMP 36.4–37.2; O2SAT 86–99; BMI 12.1
[2023-05-04] MEDS: Ipratropium/Albuterol Sulfate 3 ML AMPUL.NEB INHALATION ×6 (03:42→23:08)
--- NOTE | 2023-05-04 06:31 | PCM.PN.HOSP ---
Reason for Visit Reason for Visit: Diagnoses Anemia, unspecified (04/29/23) Encephalopathy, unspecified (04/29/23) Acute and chronic respiratory failure with hypoxia (04/29/23) Acute and chronic respiratory failure with hypercapnia (04/29/23) Subjective Subjective Patient overnight with no acute events per nursing or self report. She notes that she is tolerating a diet well with no nausea, emesis, abdominal cramping, pain, dark appearing black stools or bright red blood per rectum. She notes that her breathing has significantly improved as well and she is now returned to her chronic supplemental oxygen therapy. She remains amenable to skilled transition. Patient denies fevers, chills, nausea, emesis, abdominal pain, chest pain or recurrent or worsened dyspnea. Objective Data Objective Data Vital Signs: Vital Signs Temp Pulse Resp BP Pulse Ox O2 Del Method O2 Flow Rate 98.0 F 70 15 128/79 H 99 Bi-pap 3 05/04/23 03:00 05/04/23 03:42 05/04/23 03:42 05/04/23 03:00 05/04/23 03:42 05/04/23 03:25 05/03/23 23:43 FiO2 45 05/04/23 03:42 Oxygen Flow Rate (L/min) 3 Oxygen Delivery Method Bi-pap Weight: 70 lb 15.822 oz Body Mass Index (BMI) 11.4 Intake & Output: Intake and Output for Last 24 Hours 05/02/23 05/03/23 05/04/23 23:59 23:59 23:59 Intake Total 915 / 1015 1785 / 1785 60 / 60 Balance 915 / 1015 1785 / 1785 60 / 60 Medical Nutrition Assessment Dietitian: Malnutrition Criteria Met Start: 04/29/23 12:29 Freq: Status: Active Protocol: Document 04/30/23 11:13 LO (Rec: 04/30/23 11:13 LO [id number]) Nutrition Malnutrition Evidence of Malnutrition Exists Yes Malnutrition (severe): Chronic Evidenced By Suboptimal Energy Intake ( Severe),Weight Loss (Severe), Physical Changes (Severe) Clinical Problem Chronic Disease or Condition Related Malnutrition Etiology SEVERE related to inadequate energy intake and COPD Signs/Symptoms as evidenced by PO intake <75% if estimated nutritional needs for >1 month and severe fat/muscle wasting to orbital, temporal, buccal, and clavicle regions Status Active Problem Recommendation Dietitian Recommendations/Changes As medically able, rec ERIN to Regular w/ 4 oz ensure plus high protein 3x/day w/ medpass RD would recommend enteral nutrition to help with weight gain due to severe malnutrition if it aligns with pt and familys wishes. Pt at HIGH RISK of REFEEDING SYNDROME - monitor for changes in nutritional status Lab / Micro Data Result Diagrams: 05/04/23 05:41 05/04/23 05:41 Labs: Laboratory Results - last 24 hr 05/03/23 06:07: WBC 10.5, RBC 3.73 L, Hgb 8.6 L, Hct 33.2 L, MCV 89.0, MCH 23.1 L, MCHC 25.9 L, RDW Std Deviation 62.9 H, RDW Coeff of Marie 19.3 H, Plt Count 73 L, MPV 10.2, Immature Gran % (Auto) 0.900, Neut % (Auto) 86.7 H, Lymph % (Auto) 3.8 L, [place] % (Auto) 8.5, Eos % (Auto) 0.0, Baso % (Auto) 0.1, Absolute Neuts (auto) 9.1 H, Absolute Lymphs (auto) 0.40 L, Nucleated RBC % 0, Differential Comment SCANNED, Platelet Estimate MOD 05/03/23 06:07: Sodium 141, Potassium 4.2, Chloride 100, Carbon Dioxide 43.0 H, Anion Gap -2 L, BUN 25 H, Creatinine 0.28 L, Estim Creat Clear Calc 26.99, Est GFR (MDRD) Af Amer 307, Est GFR (MDRD) Non-Af 253, BUN/Creatinine Ratio 89.3 H, Glucose 90, Calcium 8.6, Magnesium 2.3, Total Bilirubin 0.40, AST 16, ALT 15, Alkaline Phosphatase 31 L, Total Protein 5.6 L, Albumin 2.6 L, Globulin 3.0, Albumin/Globulin Ratio 0.9 05/03/23 06:07: Phosphorus 1.7 L Micro: Microbiology 04/29/23 01:45 Urine Catheter - Catheter Urine Culture - Final Aerococcus urinae 04/29/23 01:55 Blood Culture (Wb) - Right Forearm Blood Culture - Preliminary No growth in 48 hours. 04/29/23 01:51 Blood Culture (Wb) - Left Forearm Blood Culture - Preliminary No growth in 48 hours. 04/29/23 14:15 Mucosa - Nasopharyngeal Respiratory Panel (PCR) - Final 04/29/23 01:47 Nasal Secretion SARS-CoV-2 & FLU Antigen (Rapid) - Final 04/29/23 02:05 Stool Stool Occult Blood (DEISY) - Final Occult Blood Positive Physical Exam Narrative Physical Examination: General: Awake, alert, oriented x 3 and cooperative, seated upright in PCU bed, eating breakfast, notes feeling well. Skin: Normal color, normal turgor, no icterus, no cyanosis except for occasional staged ecchymoses. HEENT: AT/NC, EOMI, PERRLA, MMM. Lungs: Significantly distant, diminished, occasional end expiratory wheeze, no evidence of any respiratory distress, no rales or rhonchi. Heart: Regular rate and rhythm; no gallop, rub audible. Abdomen: Soft, cachectic thin habitus, NTTP, ND, normal BS. Extremities: No cyanosis, clubbing, or edema, evidence of muscle wasting and fat loss. Neurological: Patient awake, alert, oriented as noted, cognitive function intact; pupils equally reactive to light and accommodation, cranial nerves II-XII grossly normal, moving all 4 extremities, no focal deficits, strength moderately to severely global decreased secondary to acute presentation complicated by underlying comorbidities. Psychiatric: Affect appears more interactive, normal, no acute evidence of depressive or anxiety feelings. Assessment & Plan Assessment/Plan (1) Acute on chronic respiratory failure with hypoxia and hypercapnia: PLAN: Plan The patient is a 67 y/o F w/ PMHx: Severe Protein Calorie Malnutrition, Chronic normocyic anemia, COPD/Asthma w/ Chronic Hypoxic Respiratory Failure, Chronic normocytic anemia, HTN, Allergic rhinitis, Anxiety and Depression who presents to the [facility] ED on 04/29/23 with history of significant profound weakness and encephalopathy found in her bed at home. #1. Acute Encephalopathy secondary to Acute on Chronic COPD/Asthma exacerbation with chronic hypoxic and hypercapnic respiratory failure (Chronic 3L NC): Severe underlying COPD at baseline with FEV1 29% 2018. CXR w/ chronic changes, CT of the head with no acute intracranial findings, VBG in the ED secondary to inability to obtain ABG, pH 7.25, PCO2 19, PO2 46, initially 6 L nasal cannula transition to BiPAP, initially admitted to the ICU, maintained on initially inhaled steroids transition to IV Solu-Medrol and eventually from IV Solu-Medrol to oral steroids, COVID-negative, respiratory panel unremarkable, transition eventually to BiPAP nightly only, completed 5 days of azithromycin per pulmonary recommendation, planned at discharge per Pulmonary recommendation prolonged 12 to 14-day oral steroid taper with follow-up as previously arranged. PT/OT consultation as well as case management with planned skilled transition, still awaiting precertification with transition once this is obtained. #2. Acute on Chronic normocytic anemia/iron deficiency anemia secondary to upper GI bleed with multiple angiodysplastic lesions: Admission hemoglobin 9.0 upon presentation, IV Protonix initiated in the ED, baseline prior to this remotely from 2020 had appeared 12-14 range thus no recent comparison, during admission hemoglobin did trend down to 7.4 on 04/30/2023 with 1 unit PRBC transfusion, GI consulted and EGD performed w/ noted angiodysplastic lesions requiring cauterization, maintained on IV PPI with serial H&H's initially->stabilized with transition to oral PPI, 04/30/2023 iron studies with ferritin of 4, at discharge will continued oral PPI and plan follow-up outpatient with gastroenterology. 05/03/2023 hemoglobin 8.6->05/04/23 Hgb 8.1, continue to trend. #3. Hypophosphatemia: 05/02/2023 phosphorus 2.3, repeat 05/03/2023 phosphorus 1.7, 05/03/23 initiated Neutra-Phos packets, 05/04/23 Isabella 1.0, IV supplementation ordered. #4. Incidental abnormal urine culture: Urine culture with Aerococcus 25,000 and 50,000 colonies and UA fairly unremarkable, unclear clinical significance, afebrile, improving, blood cultures negative, not consistent with hypertension. #5. Hypertension: Continue home regimen including Coreg, PRN hydralazine. #6. Severe protein calorie malnutrition: Evidenced by significantly reduced BMI, obvious muscle and fat loss, nutrition consulted and following. #7. Anxiety and depression: We will continue patient home mirtazapine regimen. #8. Former tobacco use: Encourage continued tobacco cessation. #9. DVT prophylaxis: SCDs. #10. CODE STATUS: Full code. Admission Evaluation Time spent evaluating chart, patient history, patient evaluation, care planning and discussion with specialists: 35 minutes. Charges/Coding Visit Charges Inpatient E&M: 88463 Subs Hosp L2
[2023-05-04 06:33] LABS: Absolute Neutrophil Count 8.8 X10^3/uL (2.0-7.7); Basophil# 0.01 X10^3/uL; Basophil% 0.1 % (0-1); Eosinophil# 0.01 X10^3/uL; Eosinophils% 0.1 % (0-5); Hematocrit 30.7 % (37-47); Hemoglobin 8.1 g/dL (12.0-15.0); Lymphocyte % 4.9 % (19-41); Mean Corp Hgb Conc 26.4 g/dL (32-36); Mean Corpuscular Hgb 23.2 pg (27.0-32.0); Mean Platelet Vol. 10.3 fl (6.2-12.0); Monocyte# 0.77 X10^3/uL; Monocyte% 7.5 % (0-10); NRBC Flagged by Analyzer 0 % (0-5); Neutrophil # 8.84 X10^3/uL (2.7-7.7); Neutrophil % 86.5 % (47-70); POSITIVE COUNT YES; POSITIVE DIFFERENTIAL YES; Platelet Count 65 K/mm3 (150-450); RBC Distribution Width CV 19.1 % (11.6-14.6); RBC Distribution Width SD 61.1 fl (35.1-43.9); Red Blood Count 3.49 M/mm3 (4.2-5.4); White Blood Count 10.2 K/mm3 (4.4-11.0)
[2023-05-04 06:45] LABS: Differential Indicated SCAN CRITERIA MET
[2023-05-04 07:02] LABS: ALB/GLOB Ratio 0.8 RATIO (0.9-2.4); AST(SGOT) 16 U/L (15-37); Alanine Aminotransfer ALT/SGPT 19 U/L (13-56); Albumin, Serum 2.4 g/dL (3.2-5.0); Alkaline Phosphatase 33 U/L (45-117); BUN 19 mg/dL (7-18); Calcium,Total 8.6 mg/dL (8.5-10.1); Carbon Dioxide > 45.0 mmol/L (21.0-32.0); Chloride 98 mmol/L (98-107); Creatinine, Serum 0.22 mg/dL (0.55-1.02); EST Glomerular Filtration Rate 333 mL/min (>60); Est Glom Filt Rate - Afr Amer 403 mL/min (>60); Glucose 79 mg/dL (74-106); Magnesium 2.3 mg/dL (1.6-2.6); Potassium 4.1 mmol/L (3.5-5.1); Protein, Total 5.4 g/dL (6.4-8.2); Sodium Level 141 mmol/L (136-145)
[2023-05-04] MEDS: predniSONE 20 MG Tablet 40 MG PO (08:10)
[2023-05-04] MEDS: Carvedilol 12.5 MG Tablet PO ×2 (08:10→16:21)
[2023-05-04] MEDS: Na Biphos/Potassium Phosphate PACKET 1 PACKET PO (08:10)
[2023-05-04] MEDS: 0.9% Saline Lock 10 ML Syringe IV ×2 (08:10→21:07)
--- NOTE | 2023-05-04 08:12 | CPS ---
PT DECREASED TO 2 LPM. NURSE NOTIFIED OF CHANGE. SATURATION ON 2LPM 94%
[2023-05-04 09:31] LABS: Differential Comment SCANNED
[2023-05-04 09:32] LABS: Platelet Estimate MKD DEC (ADEQ)
--- NOTE | 2023-05-04 09:56 | PN.GI_ITS ---
Subjective Subjective Patient states that she feels about the same with no GI complaints. She is up 14 pounds since being in the hospital. Objective Data Objective Data Vital Signs: Vital Signs Temp Pulse Resp BP Pulse Ox O2 Del Method O2 Flow Rate 98.0 F 74 16 128/79 H 91 Nasal Cannula 3 05/04/23 03:00 05/04/23 07:04 05/04/23 07:04 05/04/23 03:00 05/04/23 08:32 05/04/23 08:32 05/04/23 08:32 FiO2 45 05/04/23 03:42 Oxygen Flow Rate (L/min) 3 Oxygen Delivery Method Nasal Cannula Weight: 74 lb 15.315 oz Body Mass Index (BMI) 12.1 Intake & Output: Intake and Output for Last 24 Hours 05/02/23 05/03/23 05/04/23 23:59 23:59 23:59 Intake Total 915 / 1015 1785 / 1785 170 / 170 Balance 915 / 1015 1785 / 1785 170 / 170 Medical Nutrition Assessment Dietitian: Malnutrition Criteria Met Start: 04/29/23 12:29 Freq: Status: Active Protocol: Document 04/30/23 11:13 LO (Rec: 04/30/23 11:13 LO [id number]) Nutrition Malnutrition Evidence of Malnutrition Exists Yes Malnutrition (severe): Chronic Evidenced By Suboptimal Energy Intake ( Severe),Weight Loss (Severe), Physical Changes (Severe) Clinical Problem Chronic Disease or Condition Related Malnutrition Etiology SEVERE related to inadequate energy intake and COPD Signs/Symptoms as evidenced by PO intake <75% if estimated nutritional needs for >1 month and severe fat/muscle wasting to orbital, temporal, buccal, and clavicle regions Status Active Problem Recommendation Dietitian Recommendations/Changes As medically able, rec ERIN to Regular w/ 4 oz ensure plus high protein 3x/day w/ medpass RD would recommend enteral nutrition to help with weight gain due to severe malnutrition if it aligns with pt and familys wishes. Pt at HIGH RISK of REFEEDING SYNDROME - monitor for changes in nutritional status Lab / Micro Data Result Diagrams: 05/04/23 05:41 05/04/23 05:41 Labs: Laboratory Results - last 24 hr 05/04/23 05:41: WBC 10.2, RBC 3.49 L, Hgb 8.1 L, Hct 30.7 L, MCV 88.0, MCH 23.2 L, MCHC 26.4 L, RDW Std Deviation 61.1 H, RDW Coeff of Marie 19.1 H, Plt Count 65 L, MPV 10.3, Immature Gran % (Auto) 0.900, Neut % (Auto) 86.5 H, Lymph % (Auto) 4.9 L, Walton % (Auto) 7.5, Eos % (Auto) 0.1, Baso % (Auto) 0.1, Absolute Neuts (auto) 8.8 H, Absolute Lymphs (auto) 0.50 L, Nucleated RBC % 0, Differential Comment SCANNED, Platelet Estimate MKD 05/04/23 05:41: Sodium 141, Potassium 4.1, Chloride 98, Carbon Dioxide > 45.0 H* , Anion Gap TNP, BUN 19 H, Creatinine 0.22 L, Estim Creat Clear Calc 28.50, Est GFR (MDRD) Af Amer 403, Est GFR (MDRD) Non-Af 333, BUN/Creatinine Ratio 86.0 H, Glucose 79, Calcium 8.6, Magnesium 2.3, Total Bilirubin 0.50, AST 16, ALT 19, Alkaline Phosphatase 33 L, Total Protein 5.4 L, Albumin 2.4 L, Globulin 3.0, Albumin/Globulin Ratio 0.8 L 05/04/23 05:41: Phosphorus 1.0 L* Micro: Microbiology 04/29/23 01:55 Blood Culture (Wb) - Right Forearm Blood Culture - Final No growth in 5 days. 04/29/23 01:51 Blood Culture (Wb) - Left Forearm Blood Culture - Final No growth in 5 days. 04/29/23 01:45 Urine Catheter - Catheter Urine Culture - Final Aerococcus urinae 04/29/23 14:15 Mucosa - Nasopharyngeal Respiratory Panel (PCR) - Final 04/29/23 01:47 Nasal Secretion SARS-CoV-2 & FLU Antigen (Rapid) - Final 04/29/23 02:05 Stool Stool Occult Blood (DEISY) - Final Occult Blood Positive Physical Exam Narrative Physical Examination: General: Awake, alert, oriented x 3 and cooperative, seated upright in PCU bedside chair, receiving aerosol treatment, notes feeling improved, no complaints. Skin: Normal color, normal turgor, no icterus, no cyanosis except for occasional staged ecchymoses. HEENT: AT/NC, EOMI, PERRLA, MMM, aerosol treatment currently being given. Lungs: Significantly distant, diminished, occasional end expiratory wheeze, no evidence of any respiratory distress, breathing treatment being given, no rales or rhonchi. Heart: Currently regular rate and rhythm; no gallop, rub audible. Abdomen: Soft, cachectic thin habitus, NTTP, ND, normal BS. Extremities: No cyanosis, clubbing, or edema, evidence of muscle wasting and fat loss. Neurological: Patient awake, alert, oriented as noted, cognitive function intact; pupils equally reactive to light and accommodation, cranial nerves II- XII grossly normal, moving all 4 extremities, no focal deficits, strength moderately to severely global decreased secondary to acute presentation complicated by underlying comorbidities. Psychiatric: Affect appears fatigued otherwise normal, no acute evidence of depressive or anxiety feelings. Assessment & Plan Assessment/Plan (1) Acute on chronic respiratory failure with hypoxia and hypercapnia: PLAN: Plan 67-year-old with history of COPD, anemia, cachexia, severe protein Malnutrition with a BMI of 10 who presents with altered mental status and diagnosed with metabolic encephalopathy. She underwent an upper endoscopy and was discovered to have signs and symptoms of acute blood loss anemia and was treated endoscopically. her hemoglobin seems to be stable at this time and she remains on supplemental oxygen. 05/02: -Continue to monitor H&H -Hold anticoagulation -Continue acid suppressive therapy 05/03: -H&H seems to be stable. -Continue acid suppressive therapy for the next 3 months -She is okay to go back on anticoagulation 05/04: -H&H seems to be stable. -She is okay to DC from GI standpoint Charges/Coding Visit Charges Inpatient E&M: 81392 Subs Hosp L3
[2023-05-04] MEDS: Pantoprazole Sodium 40 MG Tablet PO (21:06)
[2023-05-05] VITALS (12 sets, daily range): BP systolic 104–128; BP diastolic 62–75; PULSE 70–86; RESP 14–20; TEMP 36.2–36.8; O2SAT 93–100; BMI 12.2
[2023-05-05 06:04] LABS: Absolute Lymphocyte Count 0.62 X10^3/uL (0.83-4.51); Absolute Neutrophil Count 8.1 X10^3/uL (2.0-7.7); Basophil# 0.01 X10^3/uL; Basophil% 0.1 % (0-1); Eosinophil# 0.03 X10^3/uL; Eosinophils% 0.3 % (0-5); Hematocrit 31.5 % (37-47); Hemoglobin 8.3 g/dL (12.0-15.0); Lymphocyte # 0.62 X10^3/ul (0.83-4.51); Lymphocyte % 6.5 % (19-41); Mean Corp Hgb Conc 26.3 g/dL (32-36); Mean Corpuscular Hgb 23.3 pg (27.0-32.0); Mean Corpuscular Volume 88.5 fL (81-99); Mean Platelet Vol. 10.3 fl (6.2-12.0); Monocyte# 0.75 X10^3/uL; Monocyte% 7.8 % (0-10); NRBC Flagged by Analyzer 0 % (0-5); Neutrophil # 8.09 X10^3/uL (2.7-7.7); Neutrophil % 84.5 % (47-70); POSITIVE COUNT YES; Platelet Count 93 K/mm3 (150-450); RBC Distribution Width CV 19.4 % (11.6-14.6); RBC Distribution Width SD 63.1 fl (35.1-43.9); Red Blood Count 3.56 M/mm3 (4.2-5.4); White Blood Count 9.6 K/mm3 (4.4-11.0)
[2023-05-05 06:37] LABS: Phosphorus 2.5 mg/dL (2.5-4.9)
[2023-05-05 06:40] LABS: ALB/GLOB Ratio 0.8 RATIO (0.9-2.4); AST(SGOT) 14 U/L (15-37); Alanine Aminotransfer ALT/SGPT 18 U/L (13-56); Albumin, Serum 2.4 g/dL (3.2-5.0); Alkaline Phosphatase 32 U/L (45-117); BUN 15 mg/dL (7-18); BUN/Creat Ratio 73.9 RATIO (10-20); Calcium,Total 7.9 mg/dL (8.5-10.1); Carbon Dioxide > 45.0 mmol/L (21.0-32.0); Chloride 97 mmol/L (98-107); EST Glomerular Filtration Rate 367 mL/min (>60); Est Glom Filt Rate - Afr Amer 444 mL/min (>60); Estimated Creatinine Clearance 28.83 ml/min; Glucose 98 mg/dL (74-106); Magnesium 2.5 mg/dL (1.6-2.6); Potassium 3.7 mmol/L (3.5-5.1); Protein, Total 5.4 g/dL (6.4-8.2); Sodium Level 141 mmol/L (136-145)
[2023-05-05] MEDS: Ipratropium/Albuterol Sulfate 3 ML AMPUL.NEB INHALATION ×4 (07:03→20:13)
[2023-05-05] MEDS: predniSONE 20 MG Tablet 40 MG PO (08:45)
[2023-05-05] MEDS: Pantoprazole Sodium 40 MG Tablet PO ×2 (08:45→20:37)
[2023-05-05] MEDS: Carvedilol 12.5 MG Tablet PO ×2 (08:45→16:12)
--- NOTE | 2023-05-05 17:50 | PCM.PN.HOSP ---
Reason for Visit Reason for Visit: Diagnoses Anemia, unspecified (04/29/23) Encephalopathy, unspecified (04/29/23) Acute and chronic respiratory failure with hypoxia (04/29/23) Acute and chronic respiratory failure with hypercapnia (04/29/23) Subjective Subjective Patient was seen and examined today, she voices no complaints to this examiner. We are waiting for approval for the patient to go to a nursing home facility for inpatient skilled services. Patient remains on nasal cannula oxygen at 3 L Objective Data Objective Data Vital Signs: Vital Signs Temp Pulse Resp BP Pulse Ox O2 Del Method O2 Flow Rate 98.0 F 83 16 128/75 H 94 Nasal Cannula 3 05/05/23 15:15 05/05/23 16:11 05/05/23 15:15 05/05/23 16:11 05/05/23 15:51 05/05/23 15:15 05/05/23 15:51 FiO2 45 05/05/23 03:06 Oxygen Flow Rate (L/min) 3 Oxygen Delivery Method Nasal Cannula Weight: 34.4 kg Body Mass Index (BMI) 12.2 Intake & Output: Intake and Output for Last 24 Hours 05/03/23 05/04/23 05/05/23 23:59 23:59 23:59 Intake Total 1785 / 1785 550 / 550 Output Total 300 / 300 450 / 450 Balance 1785 / 1785 250 / 250 -450 / -450 Medical Nutrition Assessment Dietitian: Malnutrition Criteria Met Start: 04/29/23 12:29 Freq: Status: Active Protocol: Document 05/04/23 12:00 (Rec: 05/04/23 12:00 [id number]) Nutrition Malnutrition Evidence of Malnutrition Exists Yes Malnutrition (severe): Chronic Evidenced By Suboptimal Energy Intake ( Severe),Weight Loss (Severe), Physical Changes (Severe) Clinical Problem Chronic Disease or Condition Related Malnutrition Etiology SEVERE related to inadequate energy intake and COPD Signs/Symptoms as evidenced by PO intake <75% if estimated nutritional needs for >1 month and severe fat/muscle wasting to orbital, temporal, buccal, and clavicle regions Status Active Problem Recommendation Dietitian Recommendations/Changes 1)Continue Regular diet to optimize oral intakes. 2)Continue Magic Cup BID with lunch and dinner for supplemental calories/protein. 3)RD would recommend enteral nutrition to help with weight gain due to severe malnutrition if it aligns with pt and familys wishes. 4)Pt at HIGH RISK of REFEEDING SYNDROME - monitor for changes in nutritional status Lab / Micro Data Result Diagrams: 05/05/23 05:37 05/05/23 05:37 Labs: Laboratory Results - last 24 hr 05/05/23 05:37: WBC 9.6, RBC 3.56 L, Hgb 8.3 L, Hct 31.5 L, MCV 88.5, MCH 23.3 L, MCHC 26.3 L, RDW Std Deviation 63.1 H, RDW Coeff of Marie 19.4 H, Plt Count 93 L, MPV 10.3, Immature Gran % (Auto) 0.800, Neut % (Auto) 84.5 H, Lymph % (Auto) 6.5 L, [place] % (Auto) 7.8, Eos % (Auto) 0.3, Baso % (Auto) 0.1, Absolute Neuts (auto) 8.1 H, Absolute Lymphs (auto) 0.62 L, Nucleated RBC % 0 05/05/23 05:37: Sodium 141, Potassium 3.7, Chloride 97 L, Carbon Dioxide > 45.0 H*, Anion Gap TNP, BUN 15, Creatinine 0.20 L, Estim Creat Clear Calc 28.83, Est GFR (MDRD) Af Amer 444, Est GFR (MDRD) Non-Af 367, BUN/Creatinine Ratio 73.9 H, Glucose 98, Calcium 7.9 L, Magnesium 2.5, Total Bilirubin 0.30, AST 14 L, ALT 18, Alkaline Phosphatase 32 L, Total Protein 5.4 L, Albumin 2.4 L, Globulin 3.0, Albumin/Globulin Ratio 0.8 L 05/05/23 05:37: Phosphorus 2.5 Micro: Microbiology 04/29/23 01:55 Blood Culture (Wb) - Right Forearm Blood Culture - Final No growth in 5 days. 04/29/23 01:51 Blood Culture (Wb) - Left Forearm Blood Culture - Final No growth in 5 days. 04/29/23 01:45 Urine Catheter - Catheter Urine Culture - Final Aerococcus urinae 04/29/23 14:15 Mucosa - Nasopharyngeal Respiratory Panel (PCR) - Final 04/29/23 01:47 Nasal Secretion SARS-CoV-2 & FLU Antigen (Rapid) - Final 04/29/23 02:05 Stool Stool Occult Blood (DEISY) - Final Occult Blood Positive Physical Exam Const alert, oriented x3 and no apparent distress Constitutional Narrative: Patient is cachectic appearing and appears older than her stated age General Appearance: cooperative and well developed Orientation / Consciousness: awake, oriented to person, oriented to place and oriented to time HEENT normocephalic, head/scalp atraumatic and moist oral mucous membranes Eyes PERRL, EOMs intact bilaterally and conjunctivae normal Neck supple, no JVD, thyroid normal and no carotid bruits General: trachea midline Resp normal respiratory effort, no retractions, no use of accessory muscles and clear to auscultation bilaterally Auscultation: Negative for rales, rhonchi or wheezes Cardio regular rate, regular rhythm, S1 normal heart sound, S2 normal heart sound, no murmurs, no rub and no gallops GI normal to inspection, nondistended, normoactive bowel sounds, soft to palpation, non-tender and non-distended Extremity no clubbing, cyanosis or edema Skin no rashes or lesions noted General Skin Exam: no breakdown Neuro oriented x3, CN's II-XII intact bilaterally, moves all extremities, no focal motor deficits and no sensory deficits noted Sensorium / Orientation: awake, alert, oriented to person, oriented to place and oriented to time Speech: speech normal Psych affect normal Assessment & Plan Assessment/Plan (1) Acute on chronic respiratory failure with hypoxia and hypercapnia: PLAN: Plan 1. Acute encephalopathy secondary to acute on chronic combined respiratory failure-patient is currently on 3 L via nasal cannula oxygen at this time, PT and OT are working with the patient, she will need short-term placement in a nursing home facility #2 severe chronic protein and caloric malnutrition-nutritional services is seeing patient #3 acute blood loss anemia requiring blood transfusion secondary to upper GI bleed from angiodysplastic lesions-CBC will be monitored as needed #4 essential hypertension-patient will continue on her present medications #5 chronic anxiety and depression-patient will remain on current medications #6 acute debility secondary to multiple medical problems-patient is being seen by PT and OT, we are waiting approval for placement in a nursing home facility for short-term rehab services. Total clinical time spent by myself addressing patient's medical issues, reviewing all of her data, and collaborating with patient's care team: 35 minutes Charges/Coding Visit Charges Inpatient E&M: 55378 Subs Hosp L2
[2023-05-06] VITALS (8 sets, daily range): BP systolic 114–121; BP diastolic 71–76; PULSE 81–88; RESP 15–20; TEMP 36.3–36.7; O2SAT 93–98; BMI 12.2
[2023-05-06] MEDS: Ipratropium/Albuterol Sulfate 3 ML AMPUL.NEB INHALATION ×3 (03:34→11:13)
[2023-05-06 06:12] LABS: Absolute Neutrophil Count 7.3 X10^3/uL (2.0-7.7); Basophil# 0.02 X10^3/uL; Basophil% 0.2 % (0-1); Eosinophil# 0.01 X10^3/uL; Eosinophils% 0.1 % (0-5); Hematocrit 36.3 % (37-47); Hemoglobin 9.2 g/dL (12.0-15.0); Lymphocyte % 6.8 % (19-41); Mean Corp Hgb Conc 25.3 g/dL (32-36); Mean Corpuscular Hgb 22.9 pg (27.0-32.0); Mean Corpuscular Volume 90.3 fL (81-99); Mean Platelet Vol. 10.4 fl (6.2-12.0); Monocyte# 0.86 X10^3/uL; Monocyte% 9.7 % (0-10); NRBC Flagged by Analyzer 0 % (0-5); Neutrophil # 7.27 X10^3/uL (2.7-7.7); Neutrophil % 82.4 % (47-70); POSITIVE DIFFERENTIAL YES; Platelet Count 127 K/mm3 (150-450); RBC Distribution Width CV 19.1 % (11.6-14.6); RBC Distribution Width SD 63.7 fl (35.1-43.9); Red Blood Count 4.02 M/mm3 (4.2-5.4); White Blood Count 8.8 K/mm3 (4.4-11.0)
[2023-05-06 06:22] LABS: Differential Indicated SCAN CRITERIA MET
[2023-05-06 06:31] LABS: Platelet Estimate SLT DEC (ADEQ); Poikilocytosis 2+
[2023-05-06 06:51] LABS: ALB/GLOB Ratio 0.7 RATIO (0.9-2.4); AST(SGOT) 11 U/L (15-37); Alanine Aminotransfer ALT/SGPT 19 U/L (13-56); Albumin, Serum 2.4 g/dL (3.2-5.0); Alkaline Phosphatase 37 U/L (45-117); BUN 14 mg/dL (7-18); BUN/Creat Ratio 38.6 RATIO (10-20); Calcium,Total 8.3 mg/dL (8.5-10.1); Carbon Dioxide > 45.0 mmol/L (21.0-32.0); Chloride 95 mmol/L (98-107); Creatinine, Serum 0.36 mg/dL (0.55-1.02); EST Glomerular Filtration Rate 188 mL/min (>60); Est Glom Filt Rate - Afr Amer 227 mL/min (>60); Estimated Creatinine Clearance 28.75 ml/min; Globulin 3.5 g/dL (2.2-4.2); Glucose 112 mg/dL (74-106); Protein, Total 5.9 g/dL (6.4-8.2); Sodium Level 140 mmol/L (136-145)
--- NOTE | 2023-05-06 08:38 | CASEMGMT ---
Discharge Planning Pre-cert has been obtained. SW made aware. Leila Lemons, Discharge Planning Asst.
[2023-05-06] MEDS: Carvedilol 12.5 MG Tablet PO (08:39)
[2023-05-06] MEDS: predniSONE 20 MG Tablet 40 MG PO (08:39)
[2023-05-06] MEDS: Pantoprazole Sodium 40 MG Tablet PO (08:40)
--- NOTE | 2023-05-06 09:18 | CASEMGMT ---
JAMAAL received a voice mail from Martha Grace ([phone]) at [facility] inquiring if patient is still at [facility]. JAMAAL called Martha back and left her a voice mail letting her know patient is still at [facility], but will likely discharge to [facility] ([facility]) today. Plan: d/c to [facility] under skilled level of care on a PASRR. Tawnya Contreras [employer]
--- NOTE | 2023-05-06 11:25 | PCM.TXEXTCAR ---
Diet Diet Order/Speech Therapy: 04/30/23 15:24 Diet: Regular - General Type of Dietary Supplement:: Magic Cup Is pt able to select menu?: No Diet Comments: Magic Cup BID with lunch and dinner Routine Orders/Code Status O2 Liters per Minute: 3 O2 Frequency: Continuous Keep PO Greater than or Equal to (%): 90 Code Status: Full Code Therapies Weight Bearing: Full weight bearing Physical Therapy: Eval and Treat Occupational Therapy: Eval and Treat Problem/Diagnosis (1) Acute on chronic respiratory failure with hypoxia and hypercapnia: Status: Chronic Code(s): J96.21 - Acute and chronic respiratory failure with hypoxia; J96.22 - Acute and chronic respiratory failure with hypercapnia Plan 1. Acute encephalopathy secondary to acute on chronic combined respiratory failure-patient is currently on 3 L via nasal cannula oxygen at this time, PT and OT are working with the patient, she will need short-term placement in a intermediate facility #2 severe chronic protein and caloric malnutrition-nutritional services is seeing patient #3 acute blood loss anemia requiring blood transfusion secondary to upper GI bleed from angiodysplastic lesions-CBC will be monitored as needed #4 essential hypertension-patient will continue on her present medications #5 chronic anxiety and depression-patient will remain on current medications #6 acute debility secondary to multiple medical problems-patient is being seen by PT and OT, we are waiting approval for placement in a intermediate facility for short-term rehab services. Total clinical time spent by myself addressing patient's medical issues, reviewing all of her data, and collaborating with patient's care team: 35 minutes Allergies/Procedures Done in Hospital Allergies codeine Allergy (Verified 12/04/22 15:25) Made me pass out Penicillins [PCN] Allergy (Verified 12/04/22 15:25) Rash rash to legs Procedures: None Type of Care/Length of Stay Estimated LOS: Convalescent Care Less Than 30 days Type of Care Needed: Skilled Rehab Potential: Good Prognosis: Good Additional Orders/Day of Discharge H&P will serve as current which was dated: 04/29/23 Day of Discharge: 05/06/23 Dietary and Speech Recommendations Dietitian Recommendations/Changes: 1)Continue Regular diet to optimize oral intakes. 2)Continue Magic Cup BID with lunch and dinner for supplemental calories/protein. 3)RD would recommend enteral nutrition to help with weight gain due to severe malnutrition if it aligns with pt and familys wishes. 4)Pt at HIGH RISK of REFEEDING SYNDROME - monitor for changes in nutritional status Discharge Plan Admission Admit Date/Time: 04/29/23 03:39 Primary Reason for Your Visit: resp failure, malnutrition Attending Provider: Mello Savage Primary Care Provider: Yaya Sanders Consulting Providers: Mello Savage ; Ronak Del Castillo ; Aashish Carnes ; Ahsan Nguyen ; Devang Cano ; Jessica Fatima NP ; Annika Schmitz ; Francisca Reynoso Discharge Orders/Prescriptions Prescriptions: New ipratropium-albuterol 0.5 mg-3 mg(2.5 mg base)/3 mL Solution For Nebulization 3 ml inhalation Q4H.RT Qty: 1 0RF prednisone 20 mg Tablet 40 mg PO BREAKFAST Qty: 1 0RF Rx Instructions: 40 mg daily for 3 days, then 30 mg daily for 3 days, then 20 mg per day for 3 days, then 10 mg daily for 3 days, then stop pantoprazole 40 mg Tablet,Delayed Release (Dr/Ec) 40 mg PO BID Qty: 1 0RF budesonide 1 mg/2 mL suspension for nebulization 0.5 mg inhalation BID Qty: 60 0RF Rx Instructions: begin after patient completes Prednisone taper Continued albuterol sulfate 0.63 mg/3 mL solution for nebulization 0.63 mg INHALATION Q6H PRN (Reason: shortness of breath or wheezing) Qty: 90 3RF carvedilol 12.5 mg tablet 12.5 mg PO BID 90 Days Qty: 180 1RF ergocalciferol (vitamin D2) 1,250 mcg (50,000 unit) capsule See Rx Instructions .ROUTE .COMPLEX Qty: 12 4RF Dose Instruction: TAKE 1 CAPSULE BY MOUTH EVERY WEEK Rx Instructions: TAKE 1 CAPSULE BY MOUTH EVERY WEEK Discontinued ondansetron HCl [Zofran] 4 mg tablet 4 mg PO Q8H PRN (Reason: nausea and vomiting) Qty: 60 1RF budesonide 1 mg/2 mL suspension for nebulization 1 mg INHALATION BID Qty: 60 6RF Lice Killing (permethrin) 1 % liquid 60 ml topical ONCE Qty: 59 1RF Rx Instructions: may repeat treatment 7 days after first treatment if live lice remain meclizine 12.5 mg tablet 12.5 mg PO BID PRN (Reason: dizziness) Qty: 60 1RF mirtazapine 15 mg tablet 15 mg PO QHS Qty: 90 3RF Referrals / Follow Up: Yaya Sanders MD [Primary Care Provider] - Disposition Disposition (needs filled in before D/C Order can be placed): [facility]
--- NOTE | 2023-05-06 11:52 | PHA.DC.MR ---
Pharmacy Service has performed discharge medication reconciliation for this patient. The patient's discharge medication list was reviewed for discrepancies and discrepancies were resolved. Home Medications albuterol sulfate 0.63 mg/3 mL solution for nebulization 0.63 mg (3 mL) inhalation Q6H PRN shortness of breath or wheezing #90 mL 05/12/19 carvedilol 12.5 mg tablet 12.5 mg PO BID 3 months #180 tabs 02/18/23 ergocalciferol (vitamin D2) 1,250 mcg (50,000 unit) capsule See Rx Instructions .Route .COMPLEX #12 caps 03/06/23 budesonide 1 mg/2 mL suspension for nebulization 0.5 mg inhalation BID #60 mL 05/06/23 ipratropium 0.5 mg-albuterol 3 mg (2.5 mg base)/3 mL nebulization soln 3 ml inhalation Q4H.RT #1 mL 05/06/23 pantoprazole 40 mg tablet,delayed release 40 mg PO BID #1 TAB 05/06/23 prednisone 20 mg tablet 40 mg PO BREAKFAST #1 TAB 05/06/23
--- NOTE | 2023-05-06 12:01 | CASEMGMT ---
Discharge Planning Discharge orders faxed to [facility]. Leila Lemons, Discharge Planning Asst.
--- NOTE | 2023-05-06 12:20 | CASEMGMT ---
Patient is ready for discharge to [facility] ([facility]). Plan: d/c to [facility] under skilled level of care on a PASRR. Physicians will transport via wheelchair van. Tawnya LÓPEZ
--- NOTE | 2023-05-06 13:09 | CASEMGMT ---
Discharge Planning CC and patients brotherGerard, notified of transport time. Patient will be transported via wc by Physicians. Leila Lemons, Discharge Planning Asst.
--- NOTE | 2023-05-06 14:32 | NURSING ---
Report called to Suleman MARCUS at [facility] at [phone]
--- NOTE | 2023-05-08 19:13 | PCM.DC.SUM ---
Providers Date of Admission: 04/29/23 Date of Discharge: 05/06/23 Primary Care Physician: Dr. Yaya Sanders MD Consultations 04/29/23 04:12 Consult: Location Manager / Pulmonary Medicine Routine Consulting Provider: Pulmonary Medicine [facility] [place] Reason for Consult: Respiratory failure, COPD EMERGENT Consult: No Notified: Yes Date Notified: 04/29/23 Time Notified: 03:44 Method of Notification: Text 04/29/23 07:51 Consult: Gastroenterology Routine Consulting Provider: [facility] Reason for Consult: Hgb prev 13.8-> 9.0, fobt +, BUN elevated EMERGENT Consult: No Notified: Yes Date Notified: 04/29/23 Time Notified: 07:51 Method of Notification: Text Reason For Visit: ACUTE ON CHRONIC COMBINED RESPIRATORY Diagnosis Discharge Diagnosis (1) Acute on chronic respiratory failure with hypoxia and hypercapnia: Status: Chronic Code(s): J96.21 - Acute and chronic respiratory failure with hypoxia; J96.22 - Acute and chronic respiratory failure with hypercapnia Plan 1. Acute encephalopathy secondary to acute on chronic combined respiratory failure-patient is currently on 3 L via nasal cannula oxygen at this time, PT and OT are working with the patient, she will need short-term placement in a senior living facility #2 severe chronic protein and caloric malnutrition-nutritional services is seeing patient #3 acute blood loss anemia requiring blood transfusion secondary to upper GI bleed from angiodysplastic lesions-CBC will be monitored as needed #4 essential hypertension-patient will continue on her present medications #5 chronic anxiety and depression-patient will remain on current medications #6 acute debility secondary to multiple medical problems-patient is being seen by PT and OT, we are waiting approval for placement in a senior living facility for short-term rehab services. Total clinical time spent by myself addressing patient's medical issues, reviewing all of her data, and collaborating with patient's care team: 35 minutes Medications at Discharge Home Medications albuterol sulfate 0.63 mg/3 mL solution for nebulization 0.63 mg (3 mL) inhalation Q6H PRN shortness of breath or wheezing #90 mL 05/12/19 carvedilol 12.5 mg tablet 12.5 mg PO BID 3 months #180 tabs 02/18/23 ergocalciferol (vitamin D2) 1,250 mcg (50,000 unit) capsule See Rx Instructions .Route .COMPLEX #12 caps 03/06/23 budesonide 1 mg/2 mL suspension for nebulization 0.5 mg inhalation BID #60 mL 05/06/23 ipratropium 0.5 mg-albuterol 3 mg (2.5 mg base)/3 mL nebulization soln 3 ml inhalation Q4H.RT #1 mL 05/06/23 pantoprazole 40 mg tablet,delayed release 40 mg PO BID #1 TAB 05/06/23 prednisone 20 mg tablet 40 mg (2 x 20 mg) PO BREAKFAST #1 TAB 05/06/23 Hospital Course Operations None Procedures Blood transfusion and EGD Summary of Care Provided Minutes Spent on Discharge: 31 Hospital Course: This 67-year-old white female was brought to the emergency room at [facility] from home after being found weak and debilitated in her bedroom at her home. Patient appeared weak and confused at home, evaluation in the emergency room included a chest x-ray which showed no active infiltrates, CBC showed a normal white blood cell count, hemoglobin was low at 9, patient appeared to be able to answer simple questions in the emergency room after being placed on BiPAP. Patient was admitted to ICU for acute encephalopathy secondary to combined acute on chronic respiratory failure, she was seen in consultation by critical care and gastroenterology due to her anemia. Patient underwent an EGD which revealed angiodysplastic lesions in the stomach and duodenum which were treated with a heater probe. Patient was transfused 1 unit of packed red blood cells, she was seen in consultation by PT and OT. Patient was transferred out of the ICU to PCU, she was seen by nutritional services due to severe malnutrition. Patient agreed to transfer to a senior living facility for short-term rehab services at discharge from the hospital. On 05/06/2023, patient was seen and examined:alert, oriented x3 and no apparent distress Constitutional Narrative: Patient is cachectic appearing and appears older than her stated age General Appearance: cooperative and well developed Orientation / Consciousness: awake, oriented to person, oriented to place and oriented to time HEENT normocephalic, head/scalp atraumatic and moist oral mucous membranes Eyes PERRL, EOMs intact bilaterally and conjunctivae normal Neck supple, no JVD, thyroid normal and no carotid bruits General: trachea midline Resp normal respiratory effort, no retractions, no use of accessory muscles and clear to auscultation bilaterally Auscultation: Negative for rales, rhonchi or wheezes Cardio regular rate, regular rhythm, S1 normal heart sound, S2 normal heart sound, no murmurs, no rub and no gallops GI normal to inspection, nondistended, normoactive bowel sounds, soft to palpation, non-tender and non-distended Extremity no clubbing, cyanosis or edema Skin no rashes or lesions noted General Skin Exam: no breakdown Neuro oriented x3, CN's II-XII intact bilaterally, moves all extremities, no focal motor deficits and no sensory deficits noted Sensorium / Orientation: awake, alert, oriented to person, oriented to place and oriented to time Speech: speech normal Psych affect normal Patient was transferred to an extended care facility for short-term skilled services on 05/06/2023. Weight / BMI Weight Weight: 34.3 kg Body Mass Index (BMI) 12.2 ABG / Lab / Microbiology Data 05/06/23 05:19 05/06/23 05:19 Microbiology: Microbiology 05/06/23 12:10 Nasal Secretion SARS-CoV-2 Antigen (Rapid) - Final 04/29/23 01:55 Blood Culture (Wb) - Right Forearm Blood Culture - Final No growth in 5 days. 04/29/23 01:51 Blood Culture (Wb) - Left Forearm Blood Culture - Final No growth in 5 days. 04/29/23 01:45 Urine Catheter - Catheter Urine Culture - Final Aerococcus urinae 04/29/23 14:15 Mucosa - Nasopharyngeal Respiratory Panel (PCR) - Final 04/29/23 01:47 Nasal Secretion SARS-CoV-2 & FLU Antigen (Rapid) - Final 04/29/23 02:05 Stool Stool Occult Blood (DEISY) - Final Occult Blood Positive Meaningful Use Info Meaningful Use Diagnoses (Choose all that apply): None applicable Discharge Plan Admission Admit Date/Time: 04/29/23 03:39 Primary Reason for Your Visit: resp failure, malnutrition Attending Provider: Mello Savage Primary Care Provider: Yaya Sanders Consulting Providers: Mello Savage; Ronak Del Castillo; Aashish Carnes; Ahsan Nguyen; Devang Cano; Jessica Fatima NP; Annika Schmitz; Francisca Reynoso Discharge Orders/Prescriptions Prescriptions: New ipratropium-albuterol 0.5 mg-3 mg(2.5 mg base)/3 mL Solution For Nebulization 3 ml inhalation Q4H.RT Qty: 1 0RF prednisone 20 mg Tablet 40 mg PO BREAKFAST Qty: 1 0RF Rx Instructions: 40 mg daily for 3 days, then 30 mg daily for 3 days, then 20 mg per day for 3 days, then 10 mg daily for 3 days, then stop pantoprazole 40 mg Tablet,Delayed Release (Dr/Ec) 40 mg PO BID Qty: 1 0RF budesonide 1 mg/2 mL suspension for nebulization 0.5 mg inhalation BID Qty: 60 0RF Rx Instructions: begin after patient completes Prednisone taper Continued albuterol sulfate 0.63 mg/3 mL solution for nebulization 0.63 mg INHALATION Q6H PRN (Reason: shortness of breath or wheezing) Qty: 90 3RF carvedilol 12.5 mg tablet 12.5 mg PO BID 90 Days Qty: 180 1RF ergocalciferol (vitamin D2) 1,250 mcg (50,000 unit) capsule See Rx Instructions .ROUTE .COMPLEX Qty: 12 4RF Dose Instruction: TAKE 1 CAPSULE BY MOUTH EVERY WEEK Rx Instructions: TAKE 1 CAPSULE BY MOUTH EVERY WEEK Discontinued ondansetron HCl [Zofran] 4 mg tablet 4 mg PO Q8H PRN (Reason: nausea and vomiting) Qty: 60 1RF budesonide 1 mg/2 mL suspension for nebulization 1 mg INHALATION BID Qty: 60 6RF Lice Killing (permethrin) 1 % liquid 60 ml topical ONCE Qty: 59 1RF Rx Instructions: may repeat treatment 7 days after first treatment if live lice remain meclizine 12.5 mg tablet 12.5 mg PO BID PRN (Reason: dizziness) Qty: 60 1RF mirtazapine 15 mg tablet 15 mg PO QHS Qty: 90 3RF Referrals / Follow Up: Yaya Sanders MD [Primary Care Provider] - Disposition Disposition (needs filled in before D/C Order can be placed): Intermediate Facility Charges/Coding Visit Charges Inpatient E&M: 15735 Disch Hosp >30min
== END 2023-05-06 14:36 | disposition skilled nursing facility (03) | DRG 189 ==
LOC: ED 01:40 → ICU 03:47 → PCU 05-01 15:24
PROVIDERS: Internal Medicine; Internal Medicine Gastroenterology; Admitting Provider Internal Medicine; Emergency Provider Emergency Medicine; PCP Internal Medicine; Referring Provider Internal Medicine; Visit Provider Internal Medicine
PROC: 0DJ08ZZ Inspection of Upper Intestinal Tract, Via Natural or Artificial Opening Endoscopic (ICD-10-PCS; CPT 43235; principal; 2023-04-30 15:55)
DX: J96.22 Acute and chronic respiratory failure with hypercapnia (principal); G93.41 Metabolic encephalopathy; E43 Unspecified severe protein-calorie malnutrition; K31.811 Angiodysplasia of stomach and duodenum with bleeding; J44.1 Chronic obstructive pulmonary disease with (acute) exacerbation; D62 Acute posthemorrhagic anemia; Z68.1 Body mass index [BMI] 19.9 or less, adult; E83.39 Other disorders of phosphorus metabolism; Z99.81 Dependence on supplemental oxygen; J96.21 Acute and chronic respiratory failure with hypoxia; I10 Essential (primary) hypertension; F32.A Depression, unspecified; D13.1 Benign neoplasm of stomach; F41.9 Anxiety disorder, unspecified; R00.0 Tachycardia, unspecified; Z79.51 Long term (current) use of inhaled steroids; Z20.822 Contact with and (suspected) exposure to COVID-19; Z79.899 Other long term (current) drug therapy; Z87.891 Personal history of nicotine dependence; R82.89 Other abnormal findings on cytological and histological examination of urine
CPT/HCPCS: 36415; 36600; 70450; 71045; 80053; 81001; 82274; 82306; 82550; 82607; 82728; 82746; 82803; 83540; 83550; 83605; 83735; 84100; 85025; 85610; 85730; 86850; 86870; 86900; 86901; 86902; 86920; 86922; 87040; 87077; 87086; 87088; 87426; 87428; 87633; 88305; 88313; 93005; 94002; 94003; 94640; 94660; 94762; 97110; 97116; 97162; 97166; 97530; 97535; 97802; 97803; 99252; 99285; J7030; J7040; J7050; P9016; A4216; G0463; J0612